=== PATIENT | female | born 1940 | race Caucasian/White ===

== ENCOUNTER → 2016-11-12 | Outpatient (CLI) | payer BC ==
[~2016-11-12] MED LIST: ACET-1311 PO; ASPI81TA28 PO; ATOR-54 PO; CHOL1000 PO; EZET10TA38 PO; GABA-113 PO; LISI-725 PO; MELO15TA4 PO; MULT-506 PO; OMEG10007 PO; POLY335025 PO; RXC5 PO
--- NOTE | 2016-11-12 16:29 | MAMMOGRAPHY REPORT ---
BILATERAL DIGITAL SCREENING MAMMOGRAM WITH CAD: 11/12/2016 TECHNIQUE: Current study was also evaluated with a Computer Aided Detection (CAD) system. Bilatera l CC and MLO views were obtained. COMPARISON: Comparison is made to exams dated: 09/16/2015 mammogram, 03/01/2014 mammogram, 12/03/2011 mammogram, 11/19/2010 mammogram, 02/27/2013 mammogram, and 10/20/2009 mammogram - [facility] enter. BREAST COMPOSITION: There are scattered areas of fibroglandular density in both breasts. FINDINGS: No suspicious masses, calcifications, or areas of architectural distortion are noted in e ither breast. There has been no significant interval change compared to prior exams. Bilateral mason gn-appearing calcifications are not significantly changed. IMPRESSION: ACR BI-RADS CATEGORY 2: BENIGN There is no mammographic evidence of malignancy. A 1 year screening mammogram is recommended. The p atient will receive written notification of the results. Approximately 10% of breast cancers are not detected with mammography. A negative mammographic repor t should not delay biopsy if a clinically suggestive mass is present. Ginger Monique M.D. ah/:11/12/2016 14:59:57 Escrow Representative: Miranda SMITH(Jacques)(Curt), [facility] letter sent: Normal 1/2 BI-RADS Code: ACR BI-RADS Category 2: Benign
== END | disposition home or self-care (01) ==
LOC: C.MAMM 13:57
PROVIDERS: ATTEND Family Medicine
DX: Z12.31 Encounter for screening mammogram for malignant neoplasm of breast (principal)

== ENCOUNTER → 2017-02-10 | Day surgery (SDC) | payer BC ==
[2017-02-09 09:21] VITALS: Ht 177.8 cm; Wt 102.3 kg
[~2017-02-10] VITALS: Ht 177.8 cm; Wt 102.3 kg
[~2017-02-10] MED LIST changes: +DEXAMETHASONE SOD INJ 4 MG/ML VIAL ONE; -EZET10TA38 PO; +LIDOCAINE HCL 1% MPF 5 ML VIAL ONE; -RXC5 PO; +SODIUM CHLORIDE 0.9% 1000ML 1,000 ML IV SCH
--- NOTE | 2017-02-10 09:33 | History & Physical Bridge - [place] ---
H&P Re-Evaluation Bridge Note: I have examined the patient, reviewed the History & Physical and in the interval since the performance of the History & Physical I have noted the following changes of clinical significance: No changes noted
[2017-02-10 09:52] VITALS: TEMP 36.8
--- NOTE | 2017-02-10 09:54 | Discharge Instructions-SurgCtr ---
Discharge Instructions Date of Service Feb 10, 2017. Visit Reason for Visit: Spinal Stenosis Discharge Discharge Diagnosis / Problem: stenosis Discharge Goals Goal(s): Improve function Activity Recommendations Activity Limitations: resume your previous activity Exercise/Sports Limitations: none Anesthesia . Post Anesthesia Instructions: If you have had General Anesthesia or IV Sedation: * Do not drive today. * Resume driving when surgeon permits. * Do not make important decisions or sign legal documents today. * Call surgeon for: 1. Temperature elevations greater than 101 degrees F. 2. Uncontrollable pain. 3. Excessive bleeding. 4. Persistent nausea and vomiting. 5. Medication intolerance (nausea, vomiting or rash). * For nausea and vomiting use only clear liquids such as: tea, soda, bouillon until nausea subsides, then gradually increase diet as tolerated. * If you have any concerns or questions, call your surgeon's office. If physician is unavailable and it is an emergency, call 911 or go to the nearest emergency room. . Diet Recommendations Home Diet: no limitations Procedures Procedures Performed: L4-5, L5-S1 FACET INJECTIONS, Performed : ortega l4-5, L5-s1 Pending Studies Studies pending at discharge: no Medical Emergencies . Who to Call and When: Medical Emergencies: If at any time you feel your situation is an emergency, please call 911 immediately. . Non-Emergent Contact Non-Emergency issues call your: Primary Care Provider . . "Provider Documentation" section prepared by Adam Francisco. .
--- NOTE | 2017-02-10 09:55 | [facility] Post Operative Brief Note ---
Immediate Operative Summary Operative Date Feb 10, 2017. Pre-Operative Diagnosis SPINAL STENOSIS Post-Operative Diagnosis SAME Procedure(s) Performed L4-5, L5-S1 FACET INJECTIONS, Performed : ortega l4-5, L5-s1 Surgeon DR. Sunday WHYTE Resource Economist Surgeon(s) 0 Estimated Blood Loss 0 Findings stenosis Specimens 0 Complication(s) None Disposition Recovery Room / PACU
[2017-02-10 10:10] VITALS: BP 136/72; PULSE 47; O2SAT 96
--- NOTE | 2017-02-10 15:43 | OPERATIVE REPORT ---
DATE OF OPERATION: 02/10/2017 PREOPERATIVE DIAGNOSIS: Stenosis of the lumbar spine. POSTOPERATIVE DIAGNOSIS: Same. SURGEON: Dr. Francisco. PROCEDURE: Epidural steroid injection L4-L5 and L5-S1. I made the determination at the time of surgery that it was more a stenosis problem versus facet joint arthrosis and I felt that the epidural steroids were the more prudent procedure. DESCRIPTION OF PROCEDURE: The patient was taken to the minor procedure room and placed prone, prepped and draped sterile. The 22-gauge Tuohy needle advanced to the epidural space at L4-L5 and L5-S1, 1 mL of dexamethasone injected at each level. The patient tolerated well. Returned to PACU stable. No complications. No blood loss. I attest to the content of the Intraoperative Record and any orders documented therein. Any exception s are noted below.
== END | disposition home or self-care (01) ==
LOC: X.SURG 07:58
PROVIDERS: ATTEND Orthopaedic Surgery Orthopaedic Surgery of the Spine
DX: M48.06 Spinal stenosis, lumbar region (principal)

== ENCOUNTER → 2017-03-25 | Outpatient (CLI) | payer BC ==
[~2017-03-25] MED LIST changes: -DEXAMETHASONE SOD INJ 4 MG/ML VIAL ONE; -LIDOCAINE HCL 1% MPF 5 ML VIAL ONE; -SODIUM CHLORIDE 0.9% 1000ML 1,000 ML IV SCH
== END | disposition home or self-care (01) ==
LOC: C.LABPVFM 12:56
PROVIDERS: ATTEND Family Medicine
DX: R35.0 Frequency of micturition (principal)

== ENCOUNTER → 2017-03-28 | Outpatient (CLI) | payer BC | END | disposition home or self-care (01) | LOC: C.PATHSPEC 13:02 | PROVIDERS: ATTEND Obstetrics & Gynecology | DX: N95.0 Postmenopausal bleeding (principal) ==

== ENCOUNTER → 2017-05-16 | Outpatient (CLI) | payer BC ==
[2017-05-16 13:01] LABS: ESTIMATED AVERAGE GLUCOSE 123 mg/dl; HA1C FLAG Normal (Normal)
[2017-05-16 13:17] LABS: BLOOD UREA NITROGEN 18 mg/dl (7-18); CALCIUM 10.4 mg/dl (8.5-10.1); CARBON DIOXIDE 21 mmol/L (21-32); CHLORIDE 106 mmol/L (98-107); CHOLESTEROL 150 mg/dl (0-200); CREATININE 0.76 mg/dl (0.60-1.20); GLUCOSE 113 mg/dl (70-99); POTASSIUM 4.1 mmol/L (3.5-5.1); SODIUM 138 mmol/L (136-145); TRIGLYCERIDES 105 mg/dl (0-150); VERY LOW DENSITY LIPOPROT CALC 21 mg/dl
[2017-05-16 13:18] LABS: CHOLESTEROL/HDL RATIO 2.7; HDL CHOLESTEROL 55 mg/dl; LDL CHOLESTEROL CALCULATED 74 mg/dl
== END | disposition home or self-care (01) ==
LOC: C.LABPVFM 07:48
PROVIDERS: ATTEND Family Medicine
DX: Z00.00 Encounter for general adult medical examination without abnormal findings (principal); E78.2 Mixed hyperlipidemia; I10 Essential (primary) hypertension; R73.09 Other abnormal glucose

== ENCOUNTER → 2017-05-23 | Day surgery (SDC) | payer BC ==
[2017-04-22 08:48] VITALS: Ht 177.8 cm; Wt 102.3 kg
[2017-04-27 14:07] LABS: HEMATOCRIT 45.4 % (37-47); MEAN CELL VOLUME 90.8 fL (80-100); MEAN CORPUSCULAR HGB CONC 35.2 g/dl (32-36); MEAN PLATELET VOLUME 12.4 fL (7.4-10.4); PLATELET COUNT 159 K/uL (130-400); WHITE BLOOD COUNT 6.46 K/uL (4.8-10.8)
[2017-04-27 14:11] LABS: BASO % 0.5 %; BASO ABS # 0.03 K/uL (0-0.2); COMPLETE YES; EOS % 3.1 %; HYPERSEGMENTED POLYS 1+; IG% 0.3 %; LYMPH % 28.9 %; LYMPH ABS # 1.87 K/uL (1.2-3.4); MONO % 10.8 %; NEUT % 56.4 %
[~2017-05-23] VITALS: Ht 177.8 cm; Wt 102.3 kg
[~2017-05-23] MED LIST changes: +ATROPINE SULFATE 0.1 MG/ML 5ML SYR IV PRN; +DEXAMETHASONE SOD INJ 4 MG/ML VIAL ONE; +EpHEDrine SULFATE INJ 50 MG/ML AMP IV PRN; +FENTANYL CITRATE INJ 50 MCG/1 ML 2 ML VIAL IV PRN; +FENTANYL CITRATE INJ 50 MCG/1 ML 2 ML VIAL ONE; +HYDROmorphone INJ 1 MG/ML SYR IV PRN; +LACTATED RINGER'S 1000ML 1,000 ML IV SCH; +LIDOCAINE HCL 2% 2 ML VIAL (20MG/ML) ONE; +ONDANSETRON INJ 2 MG/ML 2 ML VIAL IV PRN; +ONDANSETRON INJ 2 MG/ML 2 ML VIAL ONE; +OXYCODONE/ACETAMINOPHEN 5-325 TAB PO PRN; +PROMETHAZINE HCL INJ 25 MG in SODIUM CHLORIDE 0.9% 50ML 50 ML IV PRN; +PROPOFOL IV EMULSION 10 MG/ML 20 ML VIAL IV ONE; +SODIUM CHLORIDE 0.9% 1000ML 1,000 ML IV SCH
--- NOTE | 2017-05-23 10:22 | [facility] Post Operative Brief Note ---
Immediate Operative Summary Operative Date May 23, 2017. Pre-Operative Diagnosis Post Menopausal Bleeding Post-Operative Diagnosis same Procedure(s) Performed Dilatation And Curettage, Hysteroscopy, Polypectomy, hysteroscopic myomectomy with Myosure device Surgeon Dr. Chuy Benitez Senior Medical Writer Surgeon(s) 0 Estimated Blood Loss 5cc Findings Large endometrial polyp, small submucosal fibroid. Specimens A. Endometrial Curettings, Endometrial Polyps, Endometrial Fibroids Drains bladder drained prior to procedure Anesthesia general Complication(s) None Disposition Recovery Room / PACU
--- NOTE | 2017-05-23 10:25 | Discharge Instructions-SurgCtr ---
Discharge Instructions Date of Service May 23, 2017. Visit Reason for Visit: Post Menopausal Bleeding Discharge Discharge Diagnosis / Problem: endometrial polyp, submucosal fibroid Discharge Goals Goal(s): Diagnostic testing, Therapeutic intervention Medications Stopped Medications Name(s): Aspirin stopped for one week Activity Recommendations Activity Limitations: per Instructions/Follow-up section Anesthesia . Post Anesthesia Instructions: If you have had General Anesthesia or IV Sedation: * Do not drive today. * Resume driving when surgeon permits. * Do not make important decisions or sign legal documents today. * Call surgeon for: 1. Temperature elevations greater than 101 degrees F. 2. Uncontrollable pain. 3. Excessive bleeding. 4. Persistent nausea and vomiting. 5. Medication intolerance (nausea, vomiting or rash). * For nausea and vomiting use only clear liquids such as: tea, soda, bouillon until nausea subsides, then gradually increase diet as tolerated. * If you have any concerns or questions, call your surgeon's office. If physician is unavailable and it is an emergency, call 911 or go to the nearest emergency room. . Instructions / Follow-Up Instructions / Follow-Up ACTIVITY RECOMMENDATIONS: * Avoid tampons, douching, hot tubs, pools, and intercourse until bleeding has stopped. * May shower as usual. * No strenuous activity for 24-48 hours. After 24-48 hours, you may do anything you feel like doing (driving and sports are okay). SPECIAL CARE INSTRUCTIONS: Special Diet: * Mild nausea may occur in the immediate post-operative period. * Take clear liquids such as tea, cola or bouillon until all nausea has subsided; you may then resume your normal diet. Special Care: * Light bleeding and vaginal spotting can last from a few days to 3-4 weeks. Call your doctor if bleeding becomes heavier than the heaviest part of your period. * Check your temperature twice a day for one week. If it goes above 100.4 degrees Fahrenheit (38.0 Celsius), notify your doctor. * Call your doctor's office for an appointment for 6 weeks after your surgery. FOLLOW-UP VISIT: Call your doctor's office for an appointment for 6 weeks after your surgery. Diet Recommendations Home Diet: resume previous diet Procedures Procedures Performed: Dilatation And Curettage, Hysteroscopy, Polypectomy, hysteroscopic myomectomy with Myosure device Pending Studies Studies pending at discharge: yes List of pending studies: endometrial curettings/endo polyp/submucosal fibroid Medical Emergencies . Who to Call and When: Medical Emergencies: If at any time you feel your situation is an emergency, please call 911 immediately. . Non-Emergent Contact Non-Emergency issues call your: Primary Care Provider, Wiring Mechanic . . "Provider Documentation" section prepared by Albina Benitez. .
[2017-05-23 10:57] VITALS: TEMP 36.5
[2017-05-23 11:18] VITALS: BP 158/78; PULSE 50; O2SAT 97
--- NOTE | 2017-05-23 11:21 | Anesthesia Progress Nt - [facility] ---
Anesthesia Post Op Note Date & Time May 23, 2017 at 11:20 Vital Signs Pain Intensity: 0 Vital Signs Past 12 Hours Date Time Temp Pulse Resp B/P (MAP) Pulse Ox O2 Delivery O2 Flow Rate FiO2 05/23/17 10:57 36.5 60 16 152/84 (106) 94 Room Air 05/23/17 10:53 57 10 05/23/17 10:53 56 10 93 05/23/17 10:50 148/82 05/23/17 10:48 70 15 94 05/23/17 10:48 69 15 05/23/17 10:47 64 9 05/23/17 10:47 63 9 93 05/23/17 10:46 72 12 144/80 93 05/23/17 10:46 70 12 05/23/17 10:45 36.5 61 12 144/80 93 Room Air 05/23/17 10:41 73 18 118/93 98 05/23/17 10:41 72 18 05/23/17 10:36 62 13 05/23/17 10:36 62 13 98 05/23/17 10:35 140/71 05/23/17 10:31 63 12 98 05/23/17 10:31 63 12 05/23/17 10:30 147/78 05/23/17 10:26 74 163/83 92 05/23/17 10:26 36.4 76 14 163/83 95 Mask 11 05/23/17 10:26 74 05/23/17 07:20 36.8 53 16 156/80 (105) 94 Room Air Notes Mental Status: alert / awake / arousable, participated in evaluation Pt Amnestic to Procedure: Yes Nausea / Vomiting: adequately controlled Pain: adequately controlled Airway Patency, RR, SpO2: stable & adequate BP & HR: stable & adequate Hydration State: stable & adequate Anesthetic Complications: no major complications apparent Doing well. Awake, VSS. Ready for d/c
--- NOTE | 2017-05-23 13:03 | OPERATIVE REPORT ---
DATE OF OPERATION: 05/23/2017 PREOPERATIVE DIAGNOSIS: Postmenopausal bleeding. POSTOPERATIVE DIAGNOSIS: Same plus submucosal fibroid plus endometrial polyp. PROCEDURES PERFORMED: 1. Dilation and curettage. 2. Hysteroscopy. 3. Polypectomy. 4. Hysteroscopic myomectomy with MyoSure device. SURGEON: Albina Benitez. DO MILL CONTROL OPERATOR: None. ESTIMATED BLOOD LOSS: 5 mL. FINDINGS: Large endometrial polyp with small submucosal fibroid. SPECIMENS: Endometrial curettings, endometrial polyps and endometrial fibroid. All within the same specimen container. DRAINS: Bladder drained prior to procedure. ANESTHESIA: General. COMPLICATIONS: None. DISPOSITION: Stable and good to recovery room. INDICATIONS FOR PROCEDURE: The patient is a 77-year-old female who had undergone endometrial biopsy in the office and ultrasound for postmenopausal bleeding. Her ultrasound showed a thickened endometrial lining and biopsy result was benign, but showed an endometrial polyp. Therefore, the patient was taken to the operating room for further evaluation and removal. DESCRIPTION OF PROCEDURE: The patient was seen in the preoperative holding area where risks, benefits, alternatives to surgery were reviewed. She elected to proceed with surgery. Questions were answered. She had previously signed informed consent in the office under no duress. She was taken to the operating room where general anesthesia was administered. A timeout was confirmed. She was prepared and draped in the usual sterile fashion with feet in Yellofin stirrups in the dorsal lithotomy position. Bladder was drained. A weighted speculum was placed in the vagina. Cervix was visualized and the anterior lip was grasped with a single tooth tenaculum. The uterus was sounded and then the cervix was sequentially dilated to admit the MyoSure hysteroscope. The scope was then inserted, the cavity was visualized with the above noted findings. The MyoSure device was used to perform polypectomy as well as the myomectomy of submucosal fibroid. Instruments were then removed from the uterus. Excellent hemostasis was observed. All instruments were removed from the vagina. The patient tolerated the procedure well and went to the recovery room in stable and good condition. All specimens will be sent to pathology for further evaluation. I attest to the content of the Intraoperative Record and any orders documented therein. Any exception s are noted below.
== END | disposition home or self-care (01) ==
LOC: X.SURG 07:08
PROVIDERS: ATTEND Obstetrics & Gynecology
DX: N95.0 Postmenopausal bleeding (principal); N84.0 Polyp of corpus uteri; I10 Essential (primary) hypertension; E78.2 Mixed hyperlipidemia; E66.9 Obesity, unspecified; M19.90 Unspecified osteoarthritis, unspecified site; Z68.32 Body mass index [BMI] 32.0-32.9, adult; Z79.82 Long term (current) use of aspirin; Z98.890 Other specified postprocedural states; Z82.3 Family history of stroke; Z80.9 Family history of malignant neoplasm, unspecified

== ENCOUNTER → 2017-12-14 | Outpatient (CLI) | payer BC ==
[~2017-12-14] MED LIST changes: -ATROPINE SULFATE 0.1 MG/ML 5ML SYR IV PRN; -DEXAMETHASONE SOD INJ 4 MG/ML VIAL ONE; -EpHEDrine SULFATE INJ 50 MG/ML AMP IV PRN; -FENTANYL CITRATE INJ 50 MCG/1 ML 2 ML VIAL IV PRN; -FENTANYL CITRATE INJ 50 MCG/1 ML 2 ML VIAL ONE; -HYDROmorphone INJ 1 MG/ML SYR IV PRN; -LACTATED RINGER'S 1000ML 1,000 ML IV SCH; -LIDOCAINE HCL 2% 2 ML VIAL (20MG/ML) ONE; +MELO-83 PO; -MELO15TA4 PO; -ONDANSETRON INJ 2 MG/ML 2 ML VIAL IV PRN; -ONDANSETRON INJ 2 MG/ML 2 ML VIAL ONE; -OXYCODONE/ACETAMINOPHEN 5-325 TAB PO PRN; -PROMETHAZINE HCL INJ 25 MG in SODIUM CHLORIDE 0.9% 50ML 50 ML IV PRN; -PROPOFOL IV EMULSION 10 MG/ML 20 ML VIAL IV ONE; -SODIUM CHLORIDE 0.9% 1000ML 1,000 ML IV SCH
--- NOTE | 2017-12-14 15:30 | MAMMOGRAPHY REPORT ---
BILATERAL DIGITAL SCREENING MAMMOGRAM TOMOSYNTHESIS WITH CAD: 12/14/2017 CLINICAL HISTORY: Routine screening. Patient has no complaints. TECHNIQUE: Breast tomosynthesis in addition to standard 2D mammography was performed. Current study was also evaluated with a Computer Aided Detection (CAD) system. COMPARISON: Comparison is made to exams dated: 09/16/2015 mammogram, 11/12/2016 mammogram, 03/01/2014 m ammogram, 02/27/2013 mammogram, 12/03/2011 mammogram, and 11/19/2010 mammogram - [facility]. BREAST COMPOSITION: There are scattered areas of fibroglandular density in both breasts. FINDINGS: There are stable scattered round calcifications scattered in both breasts. Stabe punctate microcalficiations in the left lateral breast have been stable dating back to at least 2010, therefor e likely benign. No new suspicious mass, architectural distortion or cluster of microcalcifications i s seen. IMPRESSION: ACR BI-RADS CATEGORY 1: NEGATIVE There is no mammographic evidence of malignancy. A 1 year screening mammogram is recommended. The pa tient will receive written notification of the results. Approximately 10% of breast cancers are not detected with mammography. A negative mammographic report should not delay biopsy if a clinically suggestive mass is present. Priyanka Galan M.D. ay/:12/14/2017 14:26:25 Slubber Tender: Heidi SMITH(R)(M), [facility] letter sent: Normal 1/2 BI-RADS Code: ACR BI-RADS Category 1: Negative
== END | disposition home or self-care (01) ==
LOC: C.MAMM 13:18
PROVIDERS: ATTEND Family Medicine
DX: Z12.31 Encounter for screening mammogram for malignant neoplasm of breast (principal)

== ENCOUNTER 2020-02-29 09:54 | Observation (INO) ==
--- NOTE | 2020-02-08 15:01 | PAT Medication Instructions ---
Medication Instructions Date of Service February 08, 2020 Home Medications Medication Instructions Recorded atorvastatin 20 mg tablet 20 mg PO QPM #90 tab 11/26/19 celecoxib 100 mg capsule 100 mg PO BID #60 cap 01/07/20 triamcinolone acetonide 0.1 % 1 applic TOP BID PRN #15 gm 01/21/20 topical cream gabapentin 400 mg capsule 400 mg PO TID #90 cap 01/31/20 tramadol 50 mg tablet 50 - 100 mg PO TID PRN #270 tab 01/31/20 aspirin [Aspir-81] 81 mg PO Q2D cholecalciferol (vitamin D3) [Vitamin D3] 1,000 unit PO QAM multivitamin 1 tab PO QAM omega 6-jpd-kme-fish oil [Fish Oil] 1 cap PO QAM atorvastatin 20 mg tablet 20 mg PO QPM celecoxib 100 mg capsule 100 mg PO BID polyethylene glycol 3350 17 gram oral powder packet 8.5 g PO QPM triamcinolone acetonide 0.1 % topical cream 1 applic TOP BID PRN gabapentin 400 mg capsule 400 mg PO TID tramadol 50 mg tablet 50 - 100 mg PO TID PRN lisinopril 40 mg PO QAM ASK your surgeon for instructions celecoxib 100 mg capsule 100 mg PO BID STOP taking 2 weeks before surgery omega 8-asu-bva-fish oil [Fish Oil] 1 cap PO QAM STOP taking 24 hours before surgery triamcinolone acetonide 0.1 % topical cream 1 applic TOP BID PRN DO NOT take the morning of surgery cholecalciferol (vitamin D3) [Vitamin D3] 1,000 unit PO QAM multivitamin 1 tab PO QAM lisinopril 40 mg PO QAM Take morning of surgery With a small sip of water, OTHERWISE NOTHING TO EAT OR DRINK AFTER MIDNIGHT: aspirin [Aspir-81] 81 mg PO Q2D (if scheduled to take) gabapentin 400 mg capsule 400 mg PO TID tramadol 50 mg tablet 50 - 100 mg PO TID PRN (okay to take up to 4 hours prior to surgery if needed) Take evening before surgery atorvastatin 20 mg tablet 20 mg PO QPM polyethylene glycol 3350 17 gram oral powder packet 8.5 g PO QPM gabapentin 400 mg capsule 400 mg PO TID tramadol 50 mg tablet 50 - 100 mg PO TID PRN (if needed) Other Notes If you have any questions please call us at [phone] or [phone] or [phone] or [phone]
--- NOTE | 2020-02-13 14:27 | Anesthesiology Consultation ---
Date of Service February 13, 2020 Assessment & Plan (1) Encounter for pre-operative examination: Chart Review Chart Review: Acceptable Risk for Surgery (pending Covid testing) and Patient seen in Pre Admission Testing Per PAT appt 02/13/20, pt denies recent travel. Educated patient to follow up with surgeon's office regarding Covid testing. Educated on importance of self quarantining, social distancing and wearing mask in public both for herself and household contacts. Teaching & Discussion Pre-Anesthesia Teaching/Discussion Notes: Instructed NPO after midnight before surgery,except medications with 15 cc of water. Medication instructions provided according to the PAT guidelines. History Surgery Operation Date: 02/29/20 12:30 Proposed Procedures p Left Total Hip Arthroplasty Uncemt Chasidy - Won Wallace DO Height/Weight Height: 5 ft 10 in Weight: 98.5 kg Allergies Allergy/AdvReac Type Severity Reaction Status Date / Time cyclobenzaprine AdvReac Mild does not Verified 02/06/20 10:15 feel good when taking Medications Home Medications Medication Instructions Recorded Confirmed Last Taken aspirin [Aspir-81] 81 mg PO Q2D 05/31/18 02/13/20 12/13/18 cholecalciferol (vitamin D3) 1,000 unit PO QAM 05/31/18 02/13/20 12/14/18 06:45 [Vitamin D3] multivitamin 1 tab PO QAM 05/31/18 02/13/20 12/14/18 06:45 omega 1-ksv-zms-fish oil [Fish Oil] 1 cap PO QAM 05/31/18 02/13/20 12/14/18 06:45 atorvastatin 20 mg tablet 20 mg PO QPM #90 tab 11/26/19 02/13/20 Unknown celecoxib 100 mg capsule 100 mg PO BID #60 cap 01/07/20 02/13/20 Unknown polyethylene glycol 3350 17 gram 8.5 g PO QPM ea 01/21/20 02/13/20 Unknown oral powder packet triamcinolone acetonide 0.1 % 1 applic TOP BID PRN #15 gm 01/21/20 02/13/20 Unknown topical cream gabapentin 400 mg capsule 400 mg PO TID #90 cap 01/31/20 02/13/20 Unknown tramadol 50 mg tablet 50 - 100 mg PO TID PRN #270 tab 01/31/20 02/13/20 Unknown lisinopril 40 mg PO QAM 02/06/20 02/13/20 Unknown Past Medical History Medical History (Updated 02/13/20 @ 15:12 by Symone Meyers PA-C) Chronic back pain Hyperglycemia Mild and stable Hyperlipidemia Hypertension Osteoarthritis Spinal stenosis Trochanteric bursitis Exercise / Class Metabolic Activity II 4-5 Yardwork/Stairs/Walk up hill (one flight of stairs - no chest pain or SOB ) Past Family History Family History Mother Stroke Father Cancer Denies family history of Ovarian cancer Prostate cancer Myocardial infarction Breast cancer Colorectal cancer Past Surgical History Surgical History (Updated 02/14/20 @ 10:02 by Symone Meyers PA-C) History of colonoscopy History of dilatation and curettage Removed uterine polyp History of tooth extraction History of total shoulder replacement LEFT Past Anesthesia History No Hx of Anesthesia Complications and No Family Hx of Anesthesia Complications History of PONV No Hx of PONV and No Hx of Motion Sickness Social History Smoking Status: Never smoker Smoking cigarettes per day: 0 Do You Dip or Chew Tobacco: No Hx Alcohol Use: No Hx Substance Use: No substance use type: does not use Review of Systems Chronic bradycardia- seen by cardio in the past - only follows PRN. Denies syncope or dizziness Patient denies chest pain, shortness of breath, dyspnea on exertion, reflux, cough, wheezing, palpitations. No hx of seizures, stroke, [place], apnea/snoring. No hx of blood clots or blood transfusions Physical Exam Vital Signs VITALS BP 173/83 P 72 TEMP 98.4 SP02 97% RESP 16 Constitutional no acute distress ENMT Mouth: no TMJ clicking Thyromental Distance: > or= 3.5 Finger Breadths (4.0) Mallampati Class: II Missing molar. Missing cap on bottom right molar. Neck + thick neck and + limited neck extension (mild ) Respiratory normal respiratory effort; no respiratory distress Auscultation: lungs clear to auscultation bilaterally; no wheezes Cardiovascular Rate/Rhythm: regular rate and regular rhythm Heart Sounds: no murmur Vessels: no carotid bruit Musculoskeletal Spine: no pain with cervical ROM Neurologic moves all extremities Psychiatric Orientation: alert Testing Laboratory Results 02/13/20 14:50 02/13/20 14:50 PT 11.0 Seconds (9.0-12.0) 02/13/20 14:50 INR 1.0 (0.9-1.1) 02/13/20 14:50 APTT 27.7 Seconds (21.0-31.0) 02/13/20 14:50 Blood Type A Positive 02/13/20 14:50 Antibody Screen NEGATIVE 02/13/20 14:50 Electrocardiogram Date: 02/13/20 Findings: + NSR @ (66) Chest X-Ray Date: 02/13/20 Findings: + NAD and + cardiomegaly The heart is enlarged noting atherosclerotic calcification of the thoracic aorta. There is left basilar atelectasis.
--- NOTE | 2020-02-13 15:17 | XRay Report ---
TWO VIEW CHEST CLINICAL HISTORY: Preoperative examination. FINDINGS: PA and lateral chest radiographs are compared to study dated 02/05/2015. The heart is enlarg ed noting atherosclerotic calcification of the thoracic aorta. The pulmonary vasculature is nonconges bharathi. There is left basilar atelectasis. The lungs and pleural spaces are otherwise clear. There is n o pneumothorax. The skeletal structures are osteopenic. The bony thorax appears intact. Degenerative change is seen throughout the thoracic spine. A left shoulder arthroplasty is in place. IMPRESSION: Cardiomegaly with no active disease in the chest. ACT 112: Negative or not required by law. Electronically signed by: Lucius Posey M.D. 02/13/2020 3:16 PM
--- NOTE | 2020-02-13 16:10 | Electrocardiogram Report ---
Test Reason : Blood Pressure : / mmHG Vent. Rate : 066 BPM Atrial Rate : 066 BPM P-R Int : 142 ms QRS Dur : 096 ms QT Int : 360 ms P-R-T Axes : 000 -11 047 degrees QTc Int : 377 ms Normal sinus rhythm Normal ECG No previous ECGs available Confirmed by Gage Brown ([id number]) on 02/13/2020 4:10:17 PM Referred By: Won Wallace Confirmed By:Gage Brown
[2020-02-13 16:38] LABS: Basophils # (auto) 0.02 K/uL (0-0.2); Basophils % (auto) 0.3 %; Eosinophils # (auto) 0.07 K/uL (0-0.5); Eosinophils % (auto) 1.1 %; Hematocrit (blood only) 43.4 % (37-47); Hemoglobin 14.8 g/dL (12.0-16.0); Immature Granulocytes # (auto) 0.01 K/uL (0.00-0.02); Immature Granulocytes % (auto) 0.2 %; Lymphocytes # (auto) 1.72 K/uL (1.2-3.4); Lymphocytes % (auto) 27.8 %; Mean Corpuscular Hemoglobin 31.3 pg (25-34); Mean Corpuscular Hgb Conc 34.1 g/dL (32-36); Mean Corpuscular Volume 91.8 fL (80-100); Mean Platelet Volume 11.9 fL (7.4-10.4); Monocytes # (auto) 0.49 K/uL (0.11-0.59); Monocytes % (auto) 7.9 %; Neutrophils # (auto) 3.87 K/uL (1.4-6.5); Neutrophils % (auto) 62.7 %; Platelet Count 168 K/uL (130-400); RDW Coefficient of Variation 13.3 % (11.5-14.5); RDW Standard Deviation 44.5 fL (36.4-46.3); Red Blood Count 4.73 M/uL (4.2-5.4); White Blood Count 6.18 K/uL (4.8-10.8)
[2020-02-13 16:47] LABS: BUN Creatinine Ratio 18.1 (10-20); Creatinine Clr Calc Pharmacy 100.1 ml/min; Est GFR (African American) 101.3; Est GFR (Non-African American) 87.4; Potassium 3.8 mmol/L (3.5-5.1)
[2020-02-13 16:51] LABS: Partial Thromboplastin Time 27.7 Seconds (21.0-31.0)
--- NOTE | 2020-02-28 06:21 | History & Physical Report ---
Date of Service February 28, 2020 Assessment & Plan (1) Osteoarthritis of left hip: We will proceed with a left anterior total hip arthroplasty. Postoperatively she will be placed on aspirin and kept overnight for postoperative medical management. Shreya is a low risk for joint replacement surgery without any major comorbidities. Present on Admission?: Yes History of Present Illness Chief Complaint: Primary osteoarthritis of the left hip Primary Care Provider: Alyson Kingsley MD Shreya is a pleasant 80-year-old female who is been dealing with chronic increasing left hip and groin pain. X-rays and MRI have been diagnostic for advanced osteoarthritis of the left hip. After failing conservative treatment, she has elected to proceed with a left anterior total hip arthroplasty. Allergies Allergy/AdvReac Type Severity Reaction Status Date / Time cyclobenzaprine AdvReac Mild does not Verified 02/06/20 10:15 feel good when taking Home Medications Home Medications Medication Instructions Recorded Confirmed Type aspirin [Aspir-81] 81 mg PO Q2D 05/31/18 02/13/20 History cholecalciferol (vitamin D3) 1,000 unit PO QAM 05/31/18 02/13/20 History [Vitamin D3] multivitamin 1 tab PO QAM 05/31/18 02/13/20 History omega 7-ttn-ujg-fish oil [Fish Oil] 1 cap PO QAM 05/31/18 02/13/20 History atorvastatin 20 mg tablet 20 mg PO QPM #90 tab 11/26/19 02/13/20 Rx celecoxib 100 mg capsule 100 mg PO BID #60 cap 01/07/20 02/13/20 Rx polyethylene glycol 3350 17 gram 8.5 g PO QPM ea 01/21/20 02/13/20 History oral powder packet gabapentin 400 mg capsule 400 mg PO TID #90 cap 01/31/20 02/13/20 Rx tramadol 50 mg tablet 50 - 100 mg PO TID PRN #270 tab 01/31/20 02/13/20 Rx lisinopril 40 mg PO QAM 02/06/20 02/13/20 History triamcinolone acetonide 0.1 % 1 applic TOP BID PRN #15 gm 02/22/20 Rx topical cream Past Med/Surg History Medical History Chronic back pain Hyperglycemia Mild and stable Hyperlipidemia Hypertension Osteoarthritis Spinal stenosis Trochanteric bursitis Surgical History History of colonoscopy History of dilatation and curettage Removed uterine polyp History of tooth extraction History of total shoulder replacement LEFT Family History Mother Stroke Father Cancer Denies family history of Ovarian cancer Prostate cancer Myocardial infarction Breast cancer Colorectal cancer Social History Preferred Language: Bur[place]ian Communication Ability: Effective Visual Impairment: No Limitations Hearing Ability: Normal Logging Superintendent Required: No Beliefs That Will Affect Care: None marital status: Current Living Situation: Spouse current occupational status: employed and retired Other Information That Helps Us Care for You: No Feels Safe at Home: Yes Safety Concerns: Feels Safe At This Time Smoking Status: Never smoker Cigarettes Per Day: 0 ; Do You Dip or Chew Tobacco: No ; Second Hand Exposure: Yes (FATHER SMOKED PIPE) ; Hx Alcohol Use: No Hx Substance Use: No Review of Systems Review of Systems: All systems reviewed & are unremarkable except as noted in HPI & below Physical Exam Constitutional: WD/WN, vitals as above Eyes: PERRL, conjunctivae normal, anicteric sclerae ENMT: external ear and nose normal, oropharynx normal Neck: trachea midline, no thyromegaly Respiratory: normal respiratory effort Cardiovascular: RRR, no murmur, no edema Gastrointestinal (Abdomen): normal bowel sounds, soft, nontender, no hepatosplenomegaly Musculoskeletal: Physical examination of the left hip reveals decreased range of motion with flexion, internal and external rotation. There is significant groin pain with forced internal rotation of the hip his leg lengths are essentially equal. Psychiatric: A+Ox3, euthymic affect Results & Data Results & Data ([facility]) Diagnostic Findings Radiographs of the left hip and pelvis demonstrate advanced osteoarthritis with joint space narrowing osteophyte formation and ghlx-gr-hzzf articulation. PG Care Time/CCT Total # of Minutes Spent Total Time Spent with Patient: Total time spent is greater than 50% in coordination of care (as documented) at patient's floor/unit and/or counseling patient: Coding Level of Care Code 95034 Initial Inpt Care Lvl 3 Diagnoses Osteoarthritis of left hip M16.12
[~2020-02-29 09:54] MED LIST changes: -ACET-1311 PO; +ACETAMINOPHEN 500 MG TAB PO SCH; -ASPI81TA28 PO; -ATOR-54 PO; +BUPIVACAINE 0.5 % 5 MG/1 ML PF 10ML VIAL ONE; +CEFAZOLIN 2000MG 2,000 MG/15 ML SYR IV SCH; -CHOL1000 PO; +FAMOTIDINE 20 MG TAB PO SCH; -GABA-113 PO; -LISI-725 PO; +LR 500ML BOLUS, THEN 15ML/HR IV SCH; +LR 60ML/HR IV SCH; -MELO-83 PO; -MULT-506 PO; -OMEG10007 PO; -POLY335025 PO; +ROPIVACAINE 0.5% HCL/PF 150 MG, BUPIVACAINE 0.5% MPF 30 ML, EPINEPHrine 30MG/30ML (OR U... INSTIL SCH; +TRANEXAMIC ACID 1,000 MG **IV Intra-op IV SCH; +TRANEXAMIC ACID 1,000 MG **IV Pre-op IV SCH; +dexAMETHasone 4 MG TAB PO SCH
[2020-02-29] MEDS ORDERED: PROPOFOL IV EMULSION 10 MG/ML 20 ML VIAL IV ONE (09:58)
[2020-02-29] MEDS ORDERED: fentaNYL citrate 100 MCG/2 ML VIAL ONE (09:58)
[2020-02-29] MEDS ORDERED: MIDAZOLAM HCL 1 MG/ML 2ML VIAL ONE (09:58)
[2020-02-29] MEDS ORDERED: LIDOCAINE HCL 2% 2 ML VIAL/AMP(20MG/ML) INFIL ONE (09:58)
--- NOTE | 2020-02-29 10:20 | History & Physical Bridge Note ---
Date of Service February 29, 2020 History & Physical Bridge Note I have examined the patient, reviewed the History & Physical and in the interval since the performance of the History & Physical I have noted the following changes of clinical significance: no changes noted
[2020-02-29] MEDS ORDERED: ONDANSETRON INJ 2 MG/ML 2 ML VIAL IV PRN ×2 (10:50→14:43)
[2020-02-29] MEDS ORDERED: ATROPINE SULFATE 0.1 MG/ML 10ML SYR IV PRN (10:50)
[2020-02-29] MEDS ORDERED: ePHEDrine sulfate 50 MG/ML AMP IV PRN (10:50)
[2020-02-29] MEDS ORDERED: fentaNYL citrate 100 MCG/2 ML VIAL IV PRN (10:50)
[2020-02-29] MEDS ORDERED: ORTHO JOINT ANESTHETIC ONE (11:14)
--- NOTE | 2020-02-29 13:26 | Operative Report ---
PG Post Operative Report Pre & Post Diagnosis Operation Date: 02/29/20 12:00 Pre-Op Diagnosis: Degenerative Joint Disease Left Hip Post-Op Diagnosis: Degenerative Joint Disease Left Hip I identified the patient and participated in the time-out.: Yes Procedure Operation Date: 02/29/20 12:00 Actual Procedures p Left Anterior Total Hip Arthroplasty(Left) - Won Wallace DO Surgeon Won Wallace DO Rewind Operator Won Fitzgerald PAC Estimated Blood Loss 250 Findings Consistent with Post-Op Diagnosis Specimens Left femoral head Complications none Disposition Disposition: Recovery Room Indications Shreya is a pleasant 80-year-old female who presented my office with chronic increasing left hip and groin pain. X-rays, MRI, and clinical examination were diagnostic for advanced osteoarthritis of the left hip. After failing conservative treatment, she elected proceed with a left anterior total hip arthroplasty. Description of Procedure Implants used I used a Biomet Taperloc total hip arthroplasty system with a size 14 high offset micro Taperloc stem, a 52 mm G7 cup with a 25mm screw, an E1 polyethylene liner, a 36 mm ceramic head with a 0 neck. Shreya arrived at the hospital for the above procedure. She was seen in the preoperative holding area and the operative extremity was identified and signed. She was given a spinal anesthetic, a preoperative antibiotic, and TXA. She was then taken back to the operating room and laid on the table in the supine position. She was given basic sedation. The operative leg was secured to a Puristst leg positioner. The hip was then prepped and draped in sterile fashion. A timeout was done and the patient and the operative extremity was properly identified. An anterior approach was used. Dissection was taken down through the fascia and the tensor muscle belly was retracted laterally and the rectus was retracted medially. The circumflex vessels were identified and ligated. The capsule was then incised and tagged for later repair. The femoral neck was then cut and the femoral head was removed. The acetabulum was exposed. Time was spent doing a complete circumferential labral release. Sequential reaming of the acetabulum up to a size 51 reamer was done. Final reamings were done under fluoroscopy to ensure appropriate version. A Biomet 52 mm G7 cup was then impacted into place. A single 25 mm screw was placed. The E1 polyethylene liner was then snapped into place. Surrounding soft tissues were then injected with 100 cc of an orthopedic pain control cocktail. The proximal femur was then exposed. Sequential broaching up to a size 14 broach was done. Off that broach a size 36 head with a 0 neck was trialed. The hip was reduced and fluoroscopic images showed anatomic alignment of the implants in acceptable length. The broach was removed. The final size 14 high offset micro Taperloc stem was then impacted into place. A ceramic 36 mm head with a 0 neck was then impacted onto the stem and the hip was reduced. Final fluoroscopic images showed anatomic alignment of the hip. The capsule was then closed with #1 Vicryl suture. A dilute betadyne lavage was then done for 3 minutes. The joint was then irrigated with normal saline solution. The fascia was closed with #1 PDS suture. Skin was closed with 2-0 Vicryl, dustin, and a Silverlon dressing. She was then transferred to a hospital bed and taken to the post anesthesia care unit in stable condition. She tolerated the procedure well. Won Fitzgerald PA-C, was present for the entire procedure. He was critical for patient positioning, prepping, draping, retraction exposure, wound closure and application of sterile dressing. I attest to the content of the Intraoperative Record and any orders documented therein. Any exceptions are noted below.
--- NOTE | 2020-02-29 13:47 | Fluoroscopy Report ---
FL hip LT 1V HISTORY: 80 years-old Female LT ANTERIOR left hip total joint arthroplasty COMPARISON: Radiographs of the left hip 10/22/2019 TECHNIQUE: 2 spot fluoroscopic images of the left hip were obtained utilizing 34 seconds fluoroscopy time FINDINGS: Left hip total joint arthroplasty demonstrates satisfactory alignment. No acute fracture. Expected po stoperative soft tissue swelling and deep tissue air. IMPRESSION: Satisfactory alignment of the left hip total joint arthroplasty. ACT 112: Negative or not required by law. The above report was generated using voice recognition software. It may contain grammatical, syntax o r spelling errors. Electronically signed by: Rafael Cueva M.D. 02/29/2020 1:46 PM
--- NOTE | 2020-02-29 14:16 | XRay Report ---
XR hip 1V LT w pelvis CLINICAL HISTORY: Postop hip arthroplasty COMPARISON: 10/22/2019 DISCUSSION: There are postsurgical changes of a total left hip arthroplasty. The acetabular and femor al components appear well seated. There are overlying skin dustin. There is gas in the soft tissues consistent with recent surgery. There is a sclerotic density within the left inferior pubic ramus lik jessica representing a bone island. IMPRESSION: Postsurgical changes of a total left hip arthroplasty. ACT 112: Negative or not required by law. Electronically signed by: Al Greer M.D. 02/29/2020 2:14 PM
[2020-02-29] MEDS ORDERED: NALOXONE HCL 0.4 MG/1 ML VIAL/CARP IV PRN (14:43)
[2020-02-29] MEDS ORDERED: MAGNESIUM HYDROXIDE SUSP 30 ML UDC PO PRN (14:43)
[2020-02-29] MEDS ORDERED: HYDROmorphone INJ 0.5 MG/0.5 ML SYR IV PRN (14:43)
[2020-02-29] MEDS ORDERED: OXYCODONE HCL IR 5 MG TAB (IMMEDIATE RELEASE) PO PRN (14:43)
[2020-02-29] MEDS ORDERED: TRIAMCINOLONE ACET 0.1% CR 15 GM TUBE TOP PRN (14:43)
[2020-02-29] MEDS ORDERED: METOCLOPRAMIDE HCL INJ 5 MG/ML 2 ML VIAL IV PRN (14:43)
[2020-02-29] MEDS ORDERED: bisacodyL 10 MG SUPP PR PRN (14:43)
--- NOTE | 2020-02-29 14:47 | Anesthesiology Progress Note ---
Date of Service February 29, 2020 Anesthesia Post Procedure Vital Signs Vital Signs: Temp Pulse Pulse Resp BP BP Pulse Ox 02/29/20 14:30 70 14 132/63 98 02/29/20 14:20 36.2 C L 65 14 137/60 97 02/29/20 14:10 61 18 121/64 98 02/29/20 14:00 59 L 12 124/62 97 02/29/20 13:50 36.4 C L 65 16 128/61 98 02/29/20 10:40 37 C 68 18 175/88 H 97 Pain Intensity Left Hip: Pain Intensity: 4 Transfer of Care Handoff Completed per policy Notes Mental Status: alert / awake / arousable Patient Amnestic to Procedure: Yes Nausea / Vomiting: adequately controlled Pain: adequately controlled Airway Patency, RR, SpO2: stable & adequate BP & HR: stable & adequate Hydration State: stable & adequate Neuraxial Anesthesia: was administered and sensory block is resolving Anesthetic Complications: no major complications apparent
[2020-02-29] MEDS ORDERED: KETOROLAC 30 MG/ML VIAL IV SCH (16:00)
[2020-02-29] MEDS: GABAPENTIN 400 MG CAP PO SCH ×2 (16:21→20:34)
[2020-02-29] MEDS: ACETAMINOPHEN 500 MG TAB PO SCH ×2 (16:21→22:00)
[2020-02-29] MEDS: SODIUM CHLORIDE 0.9% 1000ML 1,000 ML IV SCH (16:27)
[2020-02-29] MEDS: KETOROLAC TROMETHAMINE 15 MG/ML VIAL IV SCH ×2 (16:31→22:00)
[2020-02-29] MEDS: ASPIRIN 81 MG ECTAB PO SCH (20:34)
[2020-02-29] MEDS: DOCUSATE SODIUM 100 MG CAP PO SCH (20:34)
[2020-02-29] MEDS: CEFAZOLIN 2000MG 2,000 MG/15 ML SYR IV SCH (20:39)
[2020-02-29] MEDS ORDERED: ATORVASTATIN 20 MG TAB PO SCH (21:00)
[2020-02-29] MEDS ORDERED: SENNA 8.6 MG TAB PO SCH (21:00)
[2020-03-01] MEDS: KETOROLAC TROMETHAMINE 15 MG/ML VIAL IV SCH ×2 (03:07→09:41)
[2020-03-01] MEDS: CEFAZOLIN 2000MG 2,000 MG/15 ML SYR IV SCH (03:07)
[2020-03-01] MEDS: SODIUM CHLORIDE 0.9% 1000ML 1,000 ML IV SCH (03:17)
[2020-03-01] MEDS: ACETAMINOPHEN 500 MG TAB PO SCH (05:44)
[2020-03-01 06:23] LABS: Hematocrit (blood only) 38.7 % (37-47); Hemoglobin 12.9 g/dL (12.0-16.0); Immature Granulocytes # (auto) 0.05 K/uL (0.00-0.02); Immature Granulocytes % (auto) 0.4 %; Lymphocytes # (auto) 1.05 K/uL (1.2-3.4); Mean Corpuscular Hgb Conc 33.3 g/dL (32-36); Mean Platelet Volume 11.7 fL (7.4-10.4); Monocytes # (auto) 1.44 K/uL (0.11-0.59); Neutrophils # (auto) 10.55 K/uL (1.4-6.5); Neutrophils % (auto) 80.6 %; Platelet Count 190 K/uL (130-400); RDW Coefficient of Variation 13.3 % (11.5-14.5); RDW Standard Deviation 44.8 fL (36.4-46.3); Red Blood Count 4.16 M/uL (4.2-5.4); White Blood Count 13.09 K/uL (4.8-10.8)
[2020-03-01 06:58] LABS: BUN Creatinine Ratio 11.7 (10-20); Calcium 9.6 mg/dl (8.5-10.1); Creatinine Clr Calc Pharmacy 56.2 ml/min; Est GFR (African American) 62.3; Est GFR (Non-African American) 53.7; Potassium 3.8 mmol/L (3.5-5.1)
--- NOTE | 2020-03-01 07:24 | Orthopedic Progress Note ---
Date of Service March 01, 2020 Assessment & Plan (1) History of left hip replacement: Overall she is doing very well. She is not having much pain in the left hip. She will be seen by physical therapy this morning for ambulation and range of motion exercises. She is on aspirin for DVT prophylaxis. She can be discharged home later today. She will follow-up with orthopedics in 2 weeks. Present on Admission?: Yes Subjective Shreya was seen and examined at bedside this morning. Overall she is doing very well. She is not having much pain in the left hip. She has already been up and ambulating. Her pain is well controlled and she has no complaints. Physical Exam Musculoskeletal: On physical examination of the left hip, the dressing has a little bit of bloody drainage on it but it is well sealed. Her leg lengths are equal. She has active dorsiflexion and plantarflexion of her right ankle. Results & Data ([facility]) Vital Signs (Past 12 Hours) Vital Signs Temp Pulse Resp BP BP Pulse Ox 03/01/20 05:45 36.8 C 58 L 16 172/71 H 95 03/01/20 03:09 37.2 C 57 L 16 111/61 95 02/29/20 23:22 36.8 C 52 L 16 123/65 94 02/29/20 19:26 37.2 C 61 16 122/72 92 Laboratory Results H & H 02/13/20 03/01/20 Range/Units 14:50 05:59 Hgb 14.8 12.9 (12.0-16.0) g/dL Hct 43.4 38.7 (37-47) % Coagulation 02/13/20 Range/Units 14:50 INR 1.0 (0.9-1.1) Diagnostic Findings Postoperative x-rays of the left hip show the prosthesis to be in anatomic alignment without any evidence of fracture, dislocation, or loosening. PG Care Time/CCT Total # of Minutes Spent Total Time Spent with Patient: Total time spent is greater than 50% in coordination of care (as documented) at patient's floor/unit and/or counseling patient: Coding Level of Care Code None Diagnoses History of left hip replacement Z96.642
--- NOTE | 2020-03-01 07:26 | Discharge Summary ---
Date of Service March 01, 2020 Admission HPI Per Admitting Provider Shreya is a pleasant 80-year-old female who is been dealing with chronic increasing left hip and groin pain. X-rays and MRI have been diagnostic for advanced osteoarthritis of the left hip. After failing conservative treatment, she has elected to proceed with a left anterior total hip arthroplasty. Principal Diagnosis Left total hip arthroplasty Discharge Data Allergies Allergy/AdvReac Type Severity Reaction Status Date / Time cyclobenzaprine AdvReac Mild does not Verified 02/29/20 10:17 feel good when taking Consultations 03/01/20 08:00 Consult Case Management - Discharge Planning Routine Procedures Performed Operation Date: 02/29/20 12:00 Actual Procedures p Left Anterior Total Hip Arthroplasty(Left) - Won Wallace DO Ordered Studies 02/29/20 12:00 FL fluoroscopy <1hr Routine FL hip LT 1V Routine Hospital Course (1) History of left hip replacement: On February 29, 2020 Shreya arrived at [facility] and underwent a left anterior total hip arthroplasty without complication. She had a spinal anesthetic. Postoperatively she was started on aspirin for DVT prophylaxis and transferred to the general orthopedic floors. Her hospital course was uneve ntful. On postop day #1 her H&H was stable and her pain was well controlled. She was able to participate well with physical therapy doing ambulation and range of motion exercises. She was then discharged home. She will follow-up with orthopedics in 2 weeks. Total Time Total Time Spent Total Time Spent (In Minutes): 20 Discharge Plan Discharge Items Patient Disposition: Home - Home Health Services Reason For Visit: Degenerative Joint Disease Left Hip Discharge Diagnosis: Left total hip arthroplasty Activity: As commented below Non-emergency contact: Surgeon Call non-emergency contact if: your wound has increased redness and your wound has increased drainage Follow-up/Referrals: Alyson Kingsley MD [Primary Care Provider] - Diet: Regular Addtl Attending Provider Instructions: Activity and Therapy Recommendations: * If you are using [facility] then therapy will be provided at your home until they feel you have accomplished all of your goals. * If you are using [facility] then Physical Therapy will be provided until they feel you are ready to start Outpatient Physical Therapy. * If you are not using home therapy then Outpatient Physical Therapy should start about 3-5 days from your day of surgery. Therapy will last about 6-10 weeks * You were shown a series of exercises in the hospital. Do these exercises three times each day including the exercises you were shown in physical therapy. * Get up and walk several times each day.~ For the first four weeks, try not to stand or walk for more than one hour at a time. If you do stand or walk for more than one hour, you will not hurt anything, but your leg will likely swell.~~ * As you feel comfortable, you may change from the walker or crutches to a cane and~then to independent walking. Medications: * Narcotic You will likely be sent home from the hospital with a prescription for the narcotic pain medication that worked best throughout your stay. * Aspirin Most patients will be required to take Aspirin 81mg twice a day for 6 weeks after surgery. This is obtained [id number] and a prescription is not necessary. * Other medications may be prescribed for specific circumstances. If you have any questions, please call the office at . * Resume previous home medications unless otherwise instructed TEDs/Elastic Stockings: The white elastic stockings help limit swelling and prevent blood clots from for ayah in your legs. The more you wear them, the more they work. Wear them for six weeks. Dressing Care: Leave the Silverlon dressing in place for 7 days. After 7 days you may remove the dressing. Then, you may leave the dustin open to air or cover them with a dry dressing so they do not rub on your pants. The dustin will be removed at your 2 week follow-up appointment. Showering: You may shower immediately with the Silverlon dressing. Let the shower spray hit your opposite side and slowly pat the dressing dry. Do not soak the dressing. After the dressing is removed you may shower normally with the dustin exposed. Let soapy water run over the dustin and pat them dry. Things To Watch For: * Drainage from the incision site that occurs more than one week after your surgery. * Increased redness at the incision site. * Fever above 102 degrees Fahrenheit. * Unusual chest pain or shortness of breath. * Call [facility] at with any of the above problems Follow-Up Visit: Follow-up with Dr. Wallace's PA (Won Fitzgerald) 2-3 weeks after your day of surgery. He will remove your dustin and answer any questions. If you have any additional questions or concerns, Dr Wallace is usually in the office at the same time and will be available An appointment was probably scheduled when you signed-up for surgery in the office. If you have any questions call Office Instructions: More detailed instructions as well as Frequently Asked Questions were provided in a folder by our office when you signed-up for surgery. Please review these instructions when you get home. If you have any further questions or concerns, please feel free to call the office at [phone] Pending Studies at Discharge: No Stand-Alone Forms: My [facility] [employer], Smoking Cessation Medications and DC Order Prescriptions: New oxycodone 5 mg Tablet 5 mg PO Q4H PRN (Reason: pain) Qty: 30 RF: 0 Continued atorvastatin 20 mg tablet 20 mg PO QPM Qty: 90 RF: 1 celecoxib 100 mg capsule 100 mg PO BID Qty: 60 RF: 2 tramadol 50 mg tablet 50 - 100 mg PO TID PRN (Reason: Pain) Qty: 270 RF: 0 gabapentin 400 mg capsule 400 mg PO TID Qty: 90 RF: 2 triamcinolone acetonide 0.1 % cream 1 applic TOP BID PRN (Reason: rash) Qty: 15 RF: 0 lisinopril 40 mg tablet 40 mg PO QAM RF: 0 multivitamin Tablet 1 tab PO QAM RF: 0 cholecalciferol (vitamin D3) [Vitamin D3] 1,000 unit Capsule 1,000 unit PO QAM RF: 0 omega 3-hnb-zfr-fish oil [Fish Oil] 1,000 mg (120 mg-180 mg) Capsule 1 cap PO QAM RF: 0 polyethylene glycol 3350 [Miralax] 17 gram powder in packet 8.5 g PO QPM RF: 0 Changed aspirin [Aspir-81] 81 mg Tablet,Delayed Release (Dr/Ec) 81 mg PO BID 42 Days Qty: 0 RF: 0 Discharge Orders: Discharge Order (Routine); Ordered 03/01/20 Ordered By: Won Wallace Admission Data Admit Date/Time: 02/29/20 14:41 Attending Provider: Won Wallace Admit Provider: Rodrigo,Won A Primary Care Provider: Alyson Kignsley Coding Level of Care Code D/C Day Management <30 mins Diagnoses History of left hip replacement Z96.642
[2020-03-01] MEDS ORDERED: dexAMETHasone 4 MG TAB PO SCH (08:00)
[2020-03-01] MEDS: GABAPENTIN 400 MG CAP PO SCH (08:41)
[2020-03-01] MEDS: DOCUSATE SODIUM 100 MG CAP PO SCH (08:41)
[2020-03-01] MEDS: ASPIRIN 81 MG ECTAB PO SCH (08:41)
[2020-03-01] MEDS ORDERED: lisinopriL 40 MG TAB PO SCH (09:00)
[2020-03-01] MEDS ORDERED: MULTIVITAMIN TAB PO SCH (09:00)
== END 2020-03-01 10:29 | disposition home health service (06) ==
LOC: ASU 09:54 → 3E 09:54

== ENCOUNTER 2021-02-19 08:21 | Observation (INO) ==
[2021-02-19] MEDS ORDERED: SODIUM CHLORIDE 0.9% 1000ML 1,000 ML IV SCH (09:00)
[2021-02-19 09:15] LABS: Appearance Urine Clear (Clear); Bacteria Urine Automated Negative (Negative); Blood Urine 1+ (Negative); Color Urine Dark Yellow; Glucose Urine UA Negative (Negative); Ketones Urine Negative (Negative); Leukocyte Esterase Urine Negative (Negative); Nitrite Urine Negative (Negative); Protein Urine 1+ (Negative); Specific Gravity Urine 1.026 (1.000-1.030); Urobilinogen Urine Negative (Negative); pH Urine 6.5 (4.5-7.5)
[2021-02-19 09:20] LABS: Bilirubin Urine 1+ (Negative)
--- NOTE | 2021-02-19 09:33 | Emergency Department Note ---
History of Present Illness General Chief complaint: Confusion Stated complaint: CONFUSION, FEVER Time Seen by Provider: 02/19/21 08:22 Source: patient Mode of arrival: ambulatory Limitations: altered mental status History of Present Illness Provider complaint: Altered mental status Radiation: non-radiation Severity: moderate Relieved By: + none Exacerbated By: + none Associated symptoms: + denies other symptoms Treatments prior to arrival: none This is an 81-year-old female presents emergency department via EMS after called due to concern for increased confusion. He described to EMS that the patient "started going downhill" yesterday. He stated to EMS that she had a fever, however on arrival here patient was afebrile. Denies any recent change in her medications or other known sick contact. He told EMS he has not recently been ill. On arrival patient is aware she is at the hospital, knows her name, she does not however know her birthdate, cannot provide any additional history or detail. She denies any current pain at this time. No other information available. Pt seen during a time of high acuity and national emergency pandemic while wearing PPE. Home Medications Medication Instructions Recorded Confirmed Type cholecalciferol (vitamin D3) 1,000 unit PO QAM 05/31/18 02/19/21 History [Vitamin D3] multivitamin 1 tab PO QAM 05/31/18 02/19/21 History omega [id number] oil [Fish Oil] 1 cap PO QAM 05/31/18 02/19/21 History polyethylene glycol 3350 17 gram 8.5 g PO QPM ea 01/21/20 02/19/21 History oral powder packet gabapentin 400 mg capsule 400 mg PO TID #90 cap 11/27/20 02/19/21 Rx atorvastatin 20 mg tablet 20 mg PO QPM #90 tab 12/12/20 02/19/21 Rx lisinopril 40 mg tablet 40 mg PO QAM #90 tab 01/02/21 02/19/21 Rx tramadol 50 mg tablet 50 - 100 mg PO TID PRN #270 tab 01/21/21 02/19/21 Rx aspirin 81 mg PO Q OTHER DAY 02/19/21 02/19/21 History celecoxib 100 mg PO BID 02/19/21 02/19/21 History Allergies Allergy/AdvReac Type Severity Reaction Status Date / Time cyclobenzaprine AdvReac Mild does not Verified 02/19/21 10:06 feel good when taking Past Med/Surg History Medical History Chronic back pain Diffuse myofascial pain syndrome Hyperglycemia Mild and stable Hyperlipidemia Hypertension Lumbar radicular pain Spinal stenosis Surgical History History of colonoscopy History of dilatation and curettage Removed uterine polyp History of left hip replacement (~02/2020) History of tooth extraction History of total shoulder replacement LEFT Family History Mother Stroke Father Cancer Denies family history of Ovarian cancer Prostate cancer Myocardial infarction Breast cancer Colorectal cancer Social History Smoking Status: Never smoker Cigarettes Per Day: 0; Second Hand Exposure: No; Do You Dip or Chew Tobacco: No; Tobacco Cessation Education Requested by Patient: No Hx Alcohol Use: No Hx Substance Use: No Preferred Language: Armenian Communication Ability: Impaired Visual Impairment: No Limitations Hearing Ability: Normal Community Development Planner Required: No Beliefs That Will Affect Care: None marital status: Current Living Situation: Spouse current occupational status: employed and retired Other Information That Helps Us Care for You: No Feels Safe at Home: Yes Safety Concerns: Feels Safe At This Time Assistive Devices: None Review of Systems Unobtainable due to cognitive status Physical Exam Vital Signs Vital Signs - 24 hr 02/19/21 08:33 02/19/21 08:43 02/19/21 09:00 Temperature 36.7 C Temperature Source Oral Pulse Rate 60 64 Pulse Rate [Apical] Pulse Rate from SpO2 Sensor 60 Pulse Strength [Apical] Respiratory Rate 26 H 26 H 27 H Respiratory Effort / Characteristics Respiratory Depth Respiratory Pattern Blood Pressure 154/70 H 156/69 H Blood Pressure [Right Arm] Blood Pressure Mean 98 98 Blood Pressure Mean [Right Arm] Blood Pressure Position [Right Arm] Pulse Oximetry 94 95 Oxygen Delivery Method Room Air Sepsis Recent Fever Within 48 Hours Yes Sepsis New/Unexplained Change in Mental Status Yes Sepsis Action Taken by Nursing No Action Required 02/19/21 09:07 02/19/21 09:30 02/19/21 09:31 Temperature Temperature Source Pulse Rate 66 Pulse Rate [Apical] Pulse Rate from SpO2 Sensor 64 Pulse Strength [Apical] Respiratory Rate 26 H Respiratory Effort / Characteristics Respiratory Depth Respiratory Pattern Blood Pressure 154/91 H Blood Pressure [Right Arm] Blood Pressure Mean 112 Blood Pressure Mean [Right Arm] Blood Pressure Position [Right Arm] Pulse Oximetry 96 96 96 Oxygen Delivery Method Room Air Room Air Sepsis Recent Fever Within 48 Hours Sepsis New/Unexplained Change in Mental Status Sepsis Action Taken by Nursing 02/19/21 10:30 02/19/21 11:00 02/19/21 12:00 Temperature Temperature Source Pulse Rate 64 Pulse Rate [Apical] 64 62 Pulse Rate from SpO2 Sensor 61 Pulse Strength [Apical] Normal Respiratory Rate 24 22 18 Respiratory Effort / Characteristics Non-Labored Spontaneous Respiratory Depth Normal Normal Respiratory Pattern Regular Regular Blood Pressure 141/76 H Blood Pressure [Right Arm] 161/70 H 162/86 H Blood Pressure Mean 97 Blood Pressure Mean [Right Arm] 100 111 Blood Pressure Position [Right Arm] Lying Pulse Oximetry 96 97 96 Oxygen Delivery Method Room Air Room Air Sepsis Recent Fever Within 48 Hours Sepsis New/Unexplained Change in Mental Status Sepsis Action Taken by Nursing GENERAL: alert, well appearing, well nourished, no distress, non-toxic EYE EXAM: normal conjunctiva, PERRL and EOM's grossly intact OROPHARYNX: no exudate, no erythema, lips, buccal mucosa, and tongue normal and mucous membranes are moist NECK: supple, no nuchal rigidity, no adenopathy, non-tender LUNGS: Clear to auscultation. Normal chest wall mechanics, no w/r/r HEART: no murmurs, S1 normal and S2 normal ABDOMEN: abdomen soft, non-tender, normo-active bowel sounds, no masses, no rebound or guarding. BACK: Back is symmetrical on inspection and there is no deformity, no midline tenderness, no CVA tenderness. SKIN: no rashes and no bruising UPPER EXTREMITIES: upper extremities are grossly normal. FROM, nml pulses b/l. LOWER EXTREMITIES: No pitting edema. FROM, nml pulses b/l. NEURO EXAM: Normal sensorium, cranial nerves II-XII grossly intact, normal speech, no facial droop, no gross weakness of arms, no gross weakness of legs. Gross sensation intact. Course Course 103: Discussed with daughter at bedside. No recent illness or fevers. The did speak on 6/29 in the evening and she was normal. Typically oriented and active. They were concerned for UTI or TIA. Fully vaccinated for COVID. 1152: Discussed with Dr. Álvarez. Will add doxy for possible anaplasmosis. Administered Medications Discontinued Medications Sodium Chloride (Nss 1000ml) 1,000 mls @ 999 mls/hr IV .Q1H1M SULTANA Stop: 02/19/21 10:00 Last Infusion: 02/19/21 10:51 Dose: 0 mls/hr Documented by: [id number] Admin: 02/19/21 09:44 Dose: 999 mls/hr Documented by: [id number] Ceftriaxone Sodium (Rocephin) 2,000 mg in 70 mls @ 140 mls/hr IV NOW STA Stop: 02/19/21 11:05 Last Infusion: 02/19/21 11:25 Dose: 0 mls/hr Documented by: [id number] Admin: 02/19/21 10:52 Dose: 140 mls/hr Documented by: [id number] Doxycycline Hyclate 100 mg/ (Dextrose) 110 mls @ 50 mls/hr IV NOW STA Stop: 02/19/21 14:04 Last Infusion: 02/19/21 15:13 Dose: 0 mls/hr Documented by: [id number] Admin: 02/19/21 12:51 Dose: 50 mls/hr Documented by: [id number] Ioversol (Optiray 320 125ml) 120 ml IV ONCE ONE Stop: 02/19/21 11:07 Last Admin: 02/19/21 11:06 Dose: 120 ml Documented by: [id number] Medical Decision Making Differential Diagnosis Differential diagnoses includes but is not limited to toxic, metabolic, i nfectious, traumatic, cardiac, neurologic, hematologic, psychiatric and inflammatory etiologies. Medical Records Attestation: I reviewed the patient's medical records. Home Medications Current Medication List: was personally reviewed by me Laboratory Data Attestation: I reviewed the patient's lab results. Result diagrams: 02/19/21 09:42 02/19/21 09:42 Lab Results 02/19/21 02/19/21 02/19/21 Range/Units 08:29 08:29 08:30 WBC (4.8-10.8) K/uL RBC (4.2-5.4) M/uL Hgb (12.0-16.0) g/dL Hct (37-47) % MCV (80-100) fL MCH (25-34) pg MCHC (32-36) g/dL RDW Std Deviation (36.4-46.3) fL RDW Coeff of [place] (11.5-14.5) % Plt Count (130-400) K/uL MPV (7.4-10.4) fL Immature Gran % (Auto) % Neut % (Auto) % Lymph % (Auto) % [place] % (Auto) % Eos % (Auto) % Baso % (Auto) % Neut # (Auto) (1.4-6.5) K/uL Lymph # (Auto) (1.2-3.4) K/uL [place] # (Auto) (0.11-0.59) K/uL Eos # (Auto) (0-0.5) K/uL Baso # (Auto) (0-0.2) K/uL Immature Gran # (Auto) (0.00-0.02) K/uL Platelet Estimate (Normal) RBC Morphology PT (9.0-12.0) Seconds INR (0.9-1.1) APTT (21.0-31.0) Seconds PTT Ratio Sodium (136-145) mmol/L Potassium (3.5-5.1) mmol/L Chloride (98-107) mmol/L Carbon Dioxide (21-32) mmol/L Anion Gap (3-11) BUN (7-18) mg/dl Creatinine (0.6-1.2) mg/dl Est Cr Clr Drug Dosing ml/min Est GFR ( Amer) ml/min Est GFR (Non-Af Amer) ml/min BUN/Creatinine Ratio (10-20) Glucose (70-99) mg/dl Lactate (0.4-2.0) mmol/L Calcium (8.5-10.1) mg/dl Magnesium (1.8-2.4) mg/dl Total Bilirubin (0.2-1) mg/dl AST (15-37) U/L ALT (12-78) U/L Alkaline Phosphatase (45-117) U/L Troponin I (0-0.045) ng/ml Total Protein (6.4-8.2) gm/dl Albumin (3.4-5.0) gm/dl Globulin (2.5-4.0) gm/dl Albumin/Globulin Ratio (0.9-2) Procalcitonin (0-0.5) ng/ml Urine Color Dark Yellow Urine Appearance Clear (Clear) Urine pH 6.5 (4.5-7.5) Ur Specific [place] 1.026 (1.000-1.030) Urine Protein 1+ H (Negative) Urine Glucose (UA) Negative (Negative) Urine Ketones Negative (Negative) Urine Blood 1+ H (Negative) Urine Nitrite Negative (Negative) Urine Bilirubin 1+ H (Negative) Urine Urobilinogen Negative (Negative) Ur Leukocyte Esterase Negative (Negative) Urine WBC (Auto) 1-5 (0-5) /hpf Urine RBC (Auto) 10-30 H (0-4) /hpf U Hyaline Cast (Auto) 1-5 (0-5) /lpf U Epithel Cells (Auto) 10-20 H (0-5) /lpf Urine Bacteria (Auto) Negative (Negative) Lyme Disease IgG Ab (Negative) Lyme Disease IgM Ab (Negative) COVID-19 Eval Order Covid19 at [facility] SARS-CoV-2 (PCR) NEGATIVE (Negative) 02/19/21 02/19/21 02/19/21 Range/Units 09:42 09:42 09:42 WBC 3.82 L (4.8-10.8) K/uL RBC 4.69 (4.2-5.4) M/uL Hgb 14.7 (12.0-16.0) g/dL Hct 41.5 (37-47) % MCV 88.5 (80-100) fL MCH 31.3 (25-34) pg MCHC 35.4 (32-36) g/dL RDW Std Deviation 44.0 (36.4-46.3) fL RDW Coeff of Nakul 13.5 (11.5-14.5) % Plt Count 75 L (130-400) K/uL MPV 11.4 H (7.4-10.4) fL Immature Gran % (Auto) 0.0 % Neut % (Auto) 85.1 % Lymph % (Auto) 8.1 % [place] % (Auto) 6.8 % Eos % (Auto) 0.0 % Baso % (Auto) 0.0 % Neut # (Auto) 3.25 (1.4-6.5) K/uL Lymph # (Auto) 0.31 L (1.2-3.4) K/uL [place] # (Auto) 0.26 (0.11-0.59) K/uL Eos # (Auto) 0.00 (0-0.5) K/uL Baso # (Auto) 0.00 (0-0.2) K/uL Immature Gran # (Auto) 0.00 (0.00-0.02) K/uL Platelet Estimate Decreased L (Normal) RBC Morphology Unremarkable PT 11.4 (9.0-12.0) Seconds INR 1.1 (0.9-1.1) APTT 28.5 (21.0-31.0) Seconds PTT Ratio 1.1 Sodium 135 L (136-145) mmol/L Potassium 3.8 (3.5-5.1) mmol/L Chloride 106 (98-107) mmol/L Carbon Dioxide 26 (21-32) mmol/L Anion Gap 3.0 (3-11) BUN 14 (7-18) mg/dl Creatinine 0.74 (0.6-1.2) mg/dl Est Cr Clr Drug Dosing 75.0 ml/min Est GFR ( Amer) 86.8 ml/min Est GFR (Non-Af Amer) 74.9 ml/min BUN/Creatinine Ratio 18.3 (10-20) Glucose 135 H (70-99) mg/dl Lactate (0.4-2.0) mmol/L Calcium 8.9 (8.5-10.1) mg/dl Magnesium 2.1 (1.8-2.4) mg/dl Total Bilirubin 1.9 H (0.2-1) mg/dl AST 22 (15-37) U/L ALT 25 (12-78) U/L Alkaline Phosphatase 49 (45-117) U/L Troponin I < 0.015 (0-0.045) ng/ml Total Protein 7.2 (6.4-8.2) gm/dl Albumin 3.5 (3.4-5.0) gm/dl Globulin 3.7 (2.5-4.0) gm/dl Albumin/Globulin Ratio 0.9 (0.9-2) Procalcitonin (0-0.5) ng/ml Urine Color Urine Appearance (Clear) Urine pH (4.5-7.5) Ur Specific [place] (1.000-1.030) Urine Protein (Negative) Urine Glucose (UA) (Negative) Urine Ketones (Negative) Urine Blood (Negative) Urine Nitrite (Negative) Urine Bilirubin (Negative) Urine Urobilinogen (Negative) Ur Leukocyte Esterase (Negative) Urine WBC (Auto) (0-5) /hpf Urine RBC (Auto) (0-4) /hpf U Hyaline Cast (Auto) (0-5) /lpf U Epithel Cells (Auto) (0-5) /lpf Urine Bacteria (Auto) (Negative) Lyme Disease IgG Ab (Negative) Lyme Disease IgM Ab (Negative) COVID-19 Eval Order SARS-CoV-2 (PCR) (Negative) 02/19/21 02/19/21 02/19/21 Range/Units 09:42 09:42 09:42 WBC (4.8-10.8) K/uL RBC (4.2-5.4) M/uL Hgb (12.0-16.0) g/dL Hct (37-47) % MCV (80-100) fL MCH (25-34) pg MCHC (32-36) g/dL RDW Std Deviation (36.4-46.3) fL RDW Coeff of Nakul (11.5-14.5) % Plt Count (130-400) K/uL MPV (7.4-10.4) fL Immature Gran % (Auto) % Neut % (Auto) % Lymph % (Auto) % [place] % (Auto) % Eos % (Auto) % Baso % (Auto) % Neut # (Auto) (1.4-6.5) K/uL Lymph # (Auto) (1.2-3.4) K/uL [place] # (Auto) (0.11-0.59) K/uL Eos # (Auto) (0-0.5) K/uL Baso # (Auto) (0-0.2) K/uL Immature Gran # (Auto) (0.00-0.02) K/uL Platelet Estimate (Normal) RBC Morphology PT (9.0-12.0) Seconds INR (0.9-1.1) APTT (21.0-31.0) Seconds PTT Ratio Sodium (136-145) mmol/L Potassium (3.5-5.1) mmol/L Chloride (98-107) mmol/L Carbon Dioxide (21-32) mmol/L Anion Gap (3-11) BUN (7-18) mg/dl Creatinine (0.6-1.2) mg/dl Est Cr Clr Drug Dosing ml/min Est GFR ( Amer) ml/min Est GFR (Non-Af Amer) ml/min BUN/Creatinine Ratio (10-20) Glucose (70-99) mg/dl Lactate 1.4 (0.4-2.0) mmol/L Calcium (8.5-10.1) mg/dl Magnesium (1.8-2.4) mg/dl Total Bilirubin (0.2-1) mg/dl AST (15-37) U/L ALT (12-78) U/L Alkaline Phosphatase (45-117) U/L Troponin I (0-0.045) ng/ml Total Protein (6.4-8.2) gm/dl Albumin (3.4-5.0) gm/dl Globulin (2.5-4.0) gm/dl Albumin/Globulin Ratio (0.9-2) Procalcitonin 0.24 (0-0.5) ng/ml Urine Color Urine Appearance (Clear) Urine pH (4.5-7.5) Ur Specific [place] (1.000-1.030) Urine Protein (Negative) Urine Glucose (UA) (Negative) Urine Ketones (Negative) Urine Blood (Negative) Urine Nitrite (Negative) Urine Bilirubin (Negative) Urine Urobilinogen (Negative) Ur Leukocyte Esterase (Negative) Urine WBC (Auto) (0-5) /hpf Urine RBC (Auto) (0-4) /hpf U Hyaline Cast (Auto) (0-5) /lpf U Epithel Cells (Auto) (0-5) /lpf Urine Bacteria (Auto) (Negative) Lyme Disease IgG Ab Negative (Negative) Lyme Disease IgM Ab Negative (Negative) COVID-19 Eval Order SARS-CoV-2 (PCR) (Negative) Imaging Data Radiologist's Impression: Chest X-Ray 02/19/21 08:48 SINGLE VIEW CHEST CLINICAL HISTORY: Sepsis. FINDINGS: 2 AP, portable, upright chest radiographs are compared to study dated 02/13/2020. The examination is degraded by portable technique and patient rotation. There are calcified mediastinal lymph nodes. The heart is enlarged noting atherosclerotic calcification of the thoracic aorta. The pulmonary vasculature is noncongested. Chronic interstitial thickening is similar to previous. Mild atelectasis is noted in the lung bases. No airspace consolidation or large pleural effusion is identified. No pneumothorax is seen. The skeletal structures are osteopenic. The bony thorax is grossly intact. A left shoulder arthroplasty is in place. IMPRESSION: Cardiomegaly with no acute cardiopulmonary abnormality. ACT 112: Negative or not required by law. Electronically signed by: Lucius Posey M.D. 02/19/2021 10:[address] 02/19/21 08:[address] DOSE: 729.78 mGycm HISTORY: Altered mental status. TECHNIQUE: Multiaxial CT images of the head were performed without the use of intravenous contrast. Automated exposure control was utilized for this study. A dose lowering technique was utilized adhering to the principles of ALARA. Comparison: None. Findings: The paranasal sinuses and mastoid air cells are clear. The calvarium and skull base are intact. There is no mass, hematoma, midline shift, acute infarct. White matter hypodensity is nonspecific but suggestive of microvascular ischemic change. The ventricles and sulci demonstrate mild age-related involutional changes. 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 Impression: No acute intracranial abnormality. ACT 112: Negative or not required by law. Electronically signed by: Petey Quinones M.D. 02/19/2021 10:05 AM Head CTA 02/19/21 10:38 HEAD & NECK CTA HISTORY: Altered mental status TECHNIQUE: Multiaxial CT images of the head were performed following the intravenous administration of contrast to evaluate the major cerebral vessels. Multiaxial CT images of the neck were also performed following the intravenous administration of contrast to evaluate the major cervical vessels. Maximum intensity projection images were also obtained. A dose lowering technique was utilized adhering to the principles of ALARA. COMPARISON: Head CT 02/19/2021. FINDINGS: There is no mass, hematoma, midline shift, or acute infarct. Visualized intracranial internal carotid arteries and basilar artery are widely patent. There is no significant stenosis, occlusion, or aneurysm seen within the bilateral ACAs, MCAs, or windscreen fitter. Mild to moderate calcified plaque within the distal vertebral arteries and bilateral carotid siphons. This results in mild focal stenosis within the bilateral distal vertebral arteries. The right P1 segment is absent with the right COCKTAIL LOUNGE MANAGER fed through the right posterior communicating artery. This is consistent with a normal variant. The major dural venous sinuses appear patent. The proximal great vessels are widely patent. There is no significant stenosis , occlusion, or dissection identified within the bilateral common carotid, internal carotid, or vertebral arteries. A 3 cm groundglass density within the left lung apex. This could represent a small focus of inflammatory/infectious change. However, [address] follow-up recommended to exclude the possibility of a low-grade neoplasm. A 1.1 cm hypodense right thyroid nodule. This does not meet CT criteria for follow-up. Mild calcified plaque within the bilateral carotid bulbs. IMPRESSION: 1. No significant stenosis, occlusion, or aneurysm within the [place] of [place]. 2. No significant stenosis, occlusion, or dissection identified within the carotid or cervical vertebral arteries. 3. Mild focal narrowing within the distal intracranial portions of the bilateral vertebral arteries due to the calcified plaque. 4. A 3 cm groundglass density within the left lung apex. This could represent a small focus of inflammatory/infectious change. However, [address] follow-up recommended to exclude the possibility of a low-grade neoplasm. ACT 112: Positive. There are findings on this exam that require communication between the performing entity and the patient following Patient Test Result Information Act ([place] Act 112) guidelines. Electronically signed by: Petey Quinones M.D. 02/19/2021 11:30 AM Neck CTA 02/19/21 10:38 HEAD & NECK CTA HISTORY: Altered mental status TECHNIQUE: Multiaxial CT images of the head were performed following the intravenous administration of contrast to evaluate the major cerebral vessels. Multiaxial CT images of the neck were also performed following the intravenous administration of contrast to evaluate the major cervical vessels. Maximum in tensity projection images were also obtained. A dose lowering technique was utilized adhering to the principles of ALARA. COMPARISON: Head CT 02/19/2021. FINDINGS: There is no mass, hematoma, midline shift, or acute infarct. Visualized intracranial internal carotid arteries and basilar artery are widely patent. There is no significant stenosis, occlusion, or aneurysm seen within the bilateral ACAs, MCAs, or windscreen fitter. Mild to moderate calcified plaque within the distal vertebral arteries and bilateral carotid siphons. This results in mild focal stenosis within the bilateral distal vertebral arteries. The right P1 segment is absent with the right COCKTAIL LOUNGE MANAGER fed through the right posterior communicating artery. This is consistent with a normal variant. The major dural venous sinuses appear patent. The proximal great vessels are widely patent. There is no significant stenosis, occlusion, or dissection identified within the bilateral common carotid, internal carotid, or vertebral arteries. A 3 cm groundglass density within the left lung apex. This could represent a small focus of inflammatory /infectious change. However, [address] follow-up recommended to exclude the possibility of a low-grade neoplasm. A 1.1 cm hypodense right thyroid nodule. This does not meet CT criteria for follow-up. Mild calcified plaque within the bilateral carotid bulbs. IMPRESSION: 1. No significant stenosis, occlusion, or aneurysm within the [place] of [place]. 2. No significant stenosis, occlusion, or dissection identified within the carot id or cervical vertebral arteries. 3. Mild focal narrowing within the distal intracranial portions of the bilateral vertebral arteries due to the calcified plaque. 4. A 3 cm groundglass density within the left lung apex. This could represent a small focus of inflammatory/infectious change. However, [address] follow-up recommended to exclude the possibility of a low-grade neoplasm. ACT 112: Positive. There are findings on this exam that require communication between the performing entity and the patient following Patient Test Result Information Act ([place] Act 112) guidelines. Electronically signed by: Petey Quinones M.D. 02/19/2021 11:30 AM ECG Data Attestation: I personally reviewed and interpreted this ECG as follows: Indication: + altered mental status Rate (beats per minute): 65 Rhythm: + normal sinus ECG Intervals/blocks: + Normal QRS and + Normal QT ECG [place]: + Normal ECG ST segments: + T-wave inversions (I, II, aVL, aVF, V4-6) MDM Narrative Patient presents here via EMS due to altered mental status as noted by family. Patient's confusion has been evolving over the last 36 hours according to family that came to bedside. Labs drawn and sent, sepsis work-up was initially started precaution. Family initially concern for possible urinary tract infection due to recent urinary incontinence. Patient was afebrile and hemodynamically stable here. No recent change in any medications. Patient found to have leukopenia and thrombocytopenia raising increased suspicion for tickborne illness. Lyme was added as well as anaplasmosis. Due to concern for possible Lyme and family's concern for UTI, patient given 2 g of Rocephin IV. Cultures otherwise pending. CT and CT angiography reassuring, chest x-ray reassuring also. Urine ultimately found to be negative. Additional discussion with family at bedside regarding results and plan of care at this time. Case discussed with hospitalist for additional evaluation and management. Doxycycline added to cover possible anaplasmosis although Lyme and anaplasmosis were still pending at the time of this discussion. I do not suspect meningitis/encephalitis, occult vascular etiology. Patient did appear clinically dehydrated and was started on IV fluid rehydration. Given lack of findings on CT and CT angiography as well as a nonfocal neuro exam at bedside despite difficulty following commands I do not suspect CVA. An order was placed for continuous cardiac monitoring. The monitor shows a rate of _66_ with _normal sinus_ rhythm. Impression & Plan Altered mental status, Leukopenia, Thrombocytopenia, Hyperbilirubinemia Discharge Plan Visit Data Chief Complaint: Confusion Stated Complaint: CONFUSION, FEVER ED Provider: Rahel Victor Discharge Problem: Altered mental status, Leukopenia, Thrombocytopenia, Hyperbilirubinemia Patient Disposition: Admitted As Inpatient Discharge Instructions Interventions: ED Discharge Assessment Last Done: 02/19/21 14:54 Discharge Problem: Altered mental status Qualifiers: Altered mental status type: unspecified Qualified Code(s): R41.82 - Altered mental status, unspecified Leukopenia Qualifiers: Leukopenia type: unspecified Qualified Code(s): D72.819 - Decreased white blood cell count, unspecified
[2021-02-19 10:02] LABS: INR 1.1 (0.9-1.1); Partial Thromboplastin Ratio 1.1; Partial Thromboplastin Time 28.5 Seconds (21.0-31.0); Prothrombin Time 11.4 Seconds (9.0-12.0)
--- NOTE | 2021-02-19 10:06 | CT Scan Report ---
HEAD CT NONCONTRAST CT DOSE: 729.78 mGycm HISTORY: Altered mental status. TECHNIQUE: Multiaxial CT images of the head were performed without the use of intravenous contrast. A utomated exposure control was utilized for this study. A dose lowering technique was utilized adheri ng to the principles of ALARA. Comparison: None. Findings: The paranasal sinuses and mastoid air cells are clear. The calvarium and skull base are int act. There is no mass, hematoma, midline shift, acute infarct. White matter hypodensity is nonspecifi c but suggestive of microvascular ischemic change. The ventricles and sulci demonstrate mild age-rela bharathi involutional changes. 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 Impression: No acute intracranial abnormality. ACT 112: Negative or not required by law. Electronically signed by: Petey Quinones M.D. 02/19/2021 10:05 AM
[2021-02-19 10:08] LABS: Alanine Aminotransferase 25 U/L (12-78); Albumin Level 3.5 gm/dl (3.4-5.0); Aspartate Aminotransferase 22 U/L (15-37); BUN Creatinine Ratio 18.3 (10-20); Blood Urea Nitrogen 14 mg/dl (7-18); Calcium 8.9 mg/dl (8.5-10.1); Carbon Dioxide 26 mmol/L (21-32); Chloride 106 mmol/L (98-107); Est GFR (African American) 86.8 ml/min; Est GFR (Non-African American) 74.9 ml/min; Glucose 135 mg/dl (70-99); Magnesium 2.1 mg/dl (1.8-2.4); Potassium 3.8 mmol/L (3.5-5.1); Sodium 135 mmol/L (136-145)
[2021-02-19 10:13] LABS: Albumin Globulin Ratio 0.9 (0.9-2); Alkaline Phosphatase 49 U/L (45-117); Bilirubin,Total 1.9 mg/dl (0.2-1); Globulin 3.7 gm/dl (2.5-4.0); Total Protein 7.2 gm/dl (6.4-8.2); Troponin I < 0.015 ng/ml (0-0.045)
[2021-02-19 10:15] LABS: Hematocrit (blood only) 41.5 % (37-47); Hemoglobin 14.7 g/dL (12.0-16.0); Mean Corpuscular Hemoglobin 31.3 pg (25-34); Mean Corpuscular Hgb Conc 35.4 g/dL (32-36); Mean Corpuscular Volume 88.5 fL (80-100); RDW Coefficient of Variation 13.5 % (11.5-14.5); Red Blood Count 4.69 M/uL (4.2-5.4); White Blood Count 3.82 K/uL (4.8-10.8)
--- NOTE | 2021-02-19 10:19 | XRay Report ---
SINGLE VIEW CHEST CLINICAL HISTORY: Sepsis. FINDINGS: 2 AP, portable, upright chest radiographs are compared to study dated 02/13/2020. The examin ation is degraded by portable technique and patient rotation. There are calcified mediastinal lymph nodes. The heart is enlarged noting atherosclerotic calcification of the thoracic aorta. The pulmona ry vasculature is noncongested. Chronic interstitial thickening is similar to previous. Mild atelecta sis is noted in the lung bases. No airspace consolidation or large pleural effusion is identified. No pneumothorax is seen. The skeletal structures are osteopenic. The bony thorax is grossly intact. A l eft shoulder arthroplasty is in place. IMPRESSION: Cardiomegaly with no acute cardiopulmonary abnormality. ACT 112: Negative or not required by law. Electronically signed by: Lucius Posey M.D. 02/19/2021 10:18 AM
[2021-02-19 10:25] LABS: Mean Platelet Volume 11.4 fL (7.4-10.4); Platelet Count 75 K/uL (130-400)
[2021-02-19 10:26] LABS: Lymphocytes # (auto) 0.31 K/uL (1.2-3.4); Lymphocytes % (auto) 8.1 %; Monocytes # (auto) 0.26 K/uL (0.11-0.59); Monocytes % (auto) 6.8 %; Neutrophils # (auto) 3.25 K/uL (1.4-6.5); Neutrophils % (auto) 85.1 %; Platelet Estimate Decreased (Normal); RBC Morphology Unremarkable
[2021-02-19] MEDS ORDERED: cefTRIAXone SODIUM 2,000 MG/70 ML BAG IV STA (10:36)
[2021-02-19] MEDS ORDERED: OPTIRAY 320 125ml IV ONE (11:06)
--- NOTE | 2021-02-19 11:31 | CT Scan Report ---
HEAD & NECK CTA HISTORY: Altered mental status TECHNIQUE: Multiaxial CT images of the head were performed following the intravenous administration o f contrast to evaluate the major cerebral vessels. Multiaxial CT images of the neck were also perform ed following the intravenous administration of contrast to evaluate the major cervical vessels. Maxim um intensity projection images were also obtained. A dose lowering technique was utilized adhering to the principles of ALARA. COMPARISON: Head CT 02/19/2021. FINDINGS: There is no mass, hematoma, midline shift, or acute infarct. Visualized intracranial internal carotid arteries and basilar artery are widely patent. There is no significant stenosis, occlusion, or aneur ysm seen within the bilateral ACAs, MCAs, or cyber operator. Mild to moderate calcified plaque within the dista l vertebral arteries and bilateral carotid siphons. This results in mild focal stenosis within the bi lateral distal vertebral arteries. The right P1 segment is absent with the right VAULT SERVICE MECHANIC fed through the right posterior communicating artery. This is consistent with a normal variant. The major dural venou s sinuses appear patent. The proximal great vessels are widely patent. There is no significant stenosis, occlusion, or disse ction identified within the bilateral common carotid, internal carotid, or vertebral arteries. A 3 cm groundglass density within the left lung apex. This could represent a small focus of inflammatory/in fectious change. However, [address] follow-up recommended to exclude the possibility of a low-grade neoplasm. A 1.1 cm hypodense right thyroid nodule. This does not meet CT criteria for follow-up. Mild calcified plaque within the bilateral carotid bulbs. IMPRESSION: 1. No significant stenosis, occlusion, or aneurysm within the [place]. 2. No significant stenosis, occlusion, or dissection identified within the carotid or cervical verteb ral arteries. 3. Mild focal narrowing within the distal intracranial portions of the bilateral vertebral arteries d ue to the calcified plaque. 4. A 3 cm groundglass density within the left lung apex. This could represent a small focus of inflam matory/infectious change. However, [address] follow-up recommended to exclude the po ssibility of a low-grade neoplasm. ACT 112: Positive. There are findings on this exam that require communication between the performing entity and the patient following Patient Test Result Information Act ([place] Act 112) guidelines. Electronically signed by: Petey Quinones M.D. 02/19/2021 11:30 AM
--- NOTE | 2021-02-19 11:31 | CT Scan Report ---
HEAD & NECK CTA HISTORY: Altered mental status TECHNIQUE: Multiaxial CT images of the head were performed following the intravenous administration o f contrast to evaluate the major cerebral vessels. Multiaxial CT images of the neck were also perform ed following the intravenous administration of contrast to evaluate the major cervical vessels. Maxim um intensity projection images were also obtained. A dose lowering technique was utilized adhering to the principles of ALARA. COMPARISON: Head CT 02/19/2021. FINDINGS: There is no mass, hematoma, midline shift, or acute infarct. Visualized intracranial internal carotid arteries and basilar artery are widely patent. There is no significant stenosis, occlusion, or aneur ysm seen within the bilateral ACAs, MCAs, or reaming machine tender. Mild to moderate calcified plaque within the dista l vertebral arteries and bilateral carotid siphons. This results in mild focal stenosis within the bi lateral distal vertebral arteries. The right P1 segment is absent with the right SURVEILLANCE MANAGER fed through the right posterior communicating artery. This is consistent with a normal variant. The major dural venou s sinuses appear patent. The proximal great vessels are widely patent. There is no significant stenosis, occlusion, or disse ction identified within the bilateral common carotid, internal carotid, or vertebral arteries. A 3 cm groundglass density within the left lung apex. This could represent a small focus of inflammatory/in fectious change. However, [address] follow-up recommended to exclude the possibility of a low-grade neoplasm. A 1.1 cm hypodense right thyroid nodule. This does not meet CT criteria for follow-up. Mild calcified plaque within the bilateral carotid bulbs. IMPRESSION: 1. No significant stenosis, occlusion, or aneurysm within the [place] of [place]. 2. No significant stenosis, occlusion, or dissection identified within the carotid or cervical verteb ral arteries. 3. Mild focal narrowing within the distal intracranial portions of the bilateral vertebral arteries d ue to the calcified plaque. 4. A 3 cm groundglass density within the left lung apex. This could represent a small focus of inflam matory/infectious change. However, [address] follow-up recommended to exclude the po ssibility of a low-grade neoplasm. ACT 112: Positive. There are findings on this exam that require communication between the performing entity and the patient following Patient Test Result Information Act ([place] Act 112) guidelines. Electronically signed by: Petey Quinones M.D. 02/19/2021 11:30 AM
[2021-02-19] MEDS ORDERED: DOXYCYCLINE HYCLATE 100 MG in DEXTROSE 5% 100 ML IV STA (11:53)
[2021-02-19 12:08] LABS: Lyme Ab IgG w/WB Rflx Negative (Negative); Lyme Ab IgM w/WB Rflx Negative (Negative)
--- NOTE | 2021-02-19 12:11 | History & Physical Report ---
Date of Service February 19, 2021 Assessment & Plan (1) Acute metabolic encephalopathy: Patient presents with 24 hours has confusion delirium. Reportedly febrile in EMS but not here. Does have thrombocytopenia, leukopenia, and elevated LFTs-could be consistent with anaplasmosis. CT head noncontrast negative for acute issues, CT angiogram head and neck also negative. Urinalysis negative for infection, no renal failure or electrolyte abnormalities, chest x-ray negative. Lyme disease negative-Covid negative -Highly suspect anaplasmosis given that she works out in the garden all the time [place] and with clinical signs and symptoms -Admit to PCU -Start doxycycline 100 mg IV twice daily -Supportive care, IV fluids -Observe for clinical improvement -Check MRI of the brain to rule out stroke but seems unlikely with nonfocal neuro exam -Follow blood cultures -Follow anaplasmosis PCR and peripheral smear but would treat with doxycycline x10 days regardless as PCR testing will take 5 to 7 days to return -check hepatitis panel, Abd US although seems low yield (2) Thrombocytopenia: As above, platelets 75 Likely secondary to anaplasmosis Anaplasmosis smear pending Follow CBC in the morning Check abdominal ultrasound to look for hepatosplenomegaly (3) Leukopenia: As above, could be secondary to viral infection versus anaplasmosis. Covid negative Follow CBC (4) Hypertension: Blood pressure here is mildly elevated Continue home lisinopril (5) Diffuse myofascial pain syndrome: Hold home NSAIDs while thrombocytopenic Hold home tramadol due to encephalopathy Hold home gabapentin due to encephalopathy (6) Hyperbilirubinemia: Bilirubin elevated at 1.69, otherwise LFTs normal Could be secondary to anaplasmosis as above Checking abdominal ultrasound No abdominal pain or tenderness on palpation (7) Abnormal ECG: ECG with T wave inversions that are new from previous in inferolateral leads Initial troponin negative, patient denies chest pain but is also encephalopathic No history of cardiac issues -Follow serial ECG and troponin Check echocardiogram Monitor on telemetry (8) Lumbar radicular pain: Holding home gabapentin and tramadol as above for encephalopathy Restart gabapentin when mental status improves to avoid withdrawal (9) Hyperlipidemia: Continue statin (10) Chronic back pain: As above (11) DVT prophylaxis: SCDs only due to thrombocytopenia for now Disposition-admit to PCU on observation, but may need longer stay depending on clinical course PT/OT consultations ordered due to generalized weakness and encephalopathy History of Present Illness Chief Complaint: Confusion Primary Care Provider: Alyson Kingsley MD This patient is an 81-year-old female with a history of chronic back pain with lumbar spinal stenosis, hyperlipidemia, HTN, prediabetes, diffuse myofascial pain syndrome, osteoarthritis, who presents to the ER with increased confusion that started yesterday. Her daughter reports that 2 days ago on her birthday she was totally normal herself and then her called the daughter yesterday and said that the patient was just not quite acting right. This morning she was very confused and had some urinary incontinence. EMS was called and EMS reported that the patient had a fever however was afebrile on arrival in the ER. No known sick contacts. When I saw the patient, she did not know why she was in the hospital. She denied headache or fevers or chills or sweats, denied chest pain or shortness of breath, denies nausea or vomiting, denies abdominal pain or diarrhea. She did admit that she felt tired but she was not able to tell me where she was or the date or time. Her daughter reports that normally she is extremely "sharp" and t hat her current mental status is nothing like her baseline. The patient denies any recent tick bites but daughter reports that the patient is always out in her garden working and [place]. She had no focal neuro deficits on arrival and had a negative CT noncontrast of the head as well as CT angiogram head and neck. Her urinalysis was negative, chest x-ray negative. On labs she was found though to have leukopenia, thrombocytopenia, and elevated bilirubin. Anaplasmosis was pending at the time of admission. Covid-19 was negative, troponin was negative, procalcitonin 0.24, lactate 1.4. She was given IV Rocephin and IV fluids in the ER. I also recommended doxycycline. Allergies Allergy/AdvReac Type Severity Reaction Status Date / Time cyclobenzaprine AdvReac Mild does not Verified 02/19/21 10:06 feel good when taking Home Medications Medication Instructions Recorded Confirmed Type cholecalciferol (vitamin D3) 1,000 unit PO QAM 05/31/18 02/19/21 History [Vitamin D3] multivitamin 1 tab PO QAM 05/31/18 02/19/21 History omega 9-slm-uzo-fish oil [Fish Oil] 1 cap PO QAM 05/31/18 02/19/21 History polyethylene glycol 3350 17 gram 8.5 g PO QPM ea 01/21/20 02/19/21 History oral powder packet gabapentin 400 mg capsule 400 mg PO TID #90 cap 11/27/20 02/19/21 Rx atorvastatin 20 mg tablet 20 mg PO QPM #90 tab 12/12/20 02/19/21 Rx lisinopril 40 mg tablet 40 mg PO QAM #90 tab 01/02/21 02/19/21 Rx tramadol 50 mg tablet 50 - 100 mg PO TID PRN #270 tab 01/21/21 02/19/21 Rx aspirin 81 mg PO Q OTHER DAY 02/19/21 02/19/21 History celecoxib 100 mg PO BID 02/19/21 02/19/21 History Past Med/Surg History Medical History Chronic back pain Diffuse myofascial pain syndrome Hyperglycemia Mild and stable Hyperlipidemia Hypertension Lumbar radicular pain Spinal stenosis Surgical History History of colonoscopy History of dilatation and curettage Removed uterine polyp History of left hip replacement (~02/2020) History of tooth extraction History of total shoulder replacement LEFT Family History Mother Stroke Father Cancer Denies family history of Ovarian cancer Prostate cancer Myocardial infarction Breast cancer Colorectal cancer Social History Smoking Status: Never smoker Cigarettes Per Day: 0; Second Hand Exposure: Yes (FATHER SMOKED PIPE); Hx Alcohol Use: No Hx Substance Use: No Preferred Language: [place] Islander Communication Ability: Effective Visual Impairment: No Limitations Hearing Ability: Normal Car Worker Required: No Beliefs That Will Affect Care: None marital status: Current Living Situation: Spouse current occupational status: employed and retired Feels Safe at Home: Yes Assistive Devices: Walker Review of Systems Review of Systems: All systems reviewed & are unremarkable except as noted in HPI & below Physical Exam Constitutional: WD/WN, vitals as above Eyes: PERRL, conjunctivae normal, anicteric sclerae ENMT: external ear and nose normal, oropharynx normal Neck: trachea midline, no thyromegaly Respiratory: normal respiratory effort, lungs clear to auscultation Cardiovascular: RRR, no murmur, no edema Chest (Breasts): Chest: normal inspection of chest Gastrointestinal (Abdomen): normal bowel sounds, soft, nontender, no hepatosplenomegaly Musculoskeletal: Extremities: extremities normal to inspection; no cyanosis and no clubbing Skin: no rashes, warm and dry (No rashes or tick bites noted) Neurologic: moves all extremities and awake; no focal motor deficits Able to pull herself up in the bed and move side to side Psychiatric: Orientation: alert (But drifts off to sleep when not answering questions), oriented to person and cooperative; + not oriented to place and + not oriented to time Eye Contact: + fair eye contact Speech: normal rate/rhythm/volume of speech Affect: euthymic affect Cognition: remote memory grossly intact; + recent memory not intact Lymphatic: no lymphedema Results & Data Results & Data ([facility]) Vital Signs (Past 12 Hours) Vital Signs Temp Pulse Resp BP Pulse Ox 02/19/21 10:30 64 24 141/76 H 96 02/19/21 09:31 66 26 H 154/91 H 96 02/19/21 09:30 96 02/19/21 09:07 96 02/19/21 09:00 64 27 H 156/69 H 95 02/19/21 08:43 36.7 C 60 26 H 154/70 H 94 02/19/21 08:33 26 H Laboratory Results 02/19/21 02/19/21 02/19/21 Range/Units 09:42 09:42 09:42 WBC (4.8-10.8) K/uL RBC (4.2-5.4) M/uL Hgb (12.0-16.0) g/dL Hct (37-47) % MCV (80-100) fL MCH (25-34) pg MCHC (32-36) g/dL RDW Std Deviation (36.4-46.3) fL RDW Coeff of Nakul (11.5-14.5) % Plt Count (130-400) K/uL MPV (7.4-10.4) fL Immature Gran % (Auto) % Neut % (Auto) % Lymph % (Auto) % [place]christ % (Auto) % Eos % (Auto) % Baso % (Auto) % Neut # (Auto) (1.4-6.5) K/uL Lymph # (Auto) (1.2-3.4) K/uL [place] # (Auto) (0.11-0.59) K/uL Eos # (Auto) (0-0.5) K/uL Baso # (Auto) (0-0.2) K/uL Immature Gran # (Auto) (0.00-0.02) K/uL Platelet Estimate (Normal) RBC Morphology PT (9.0-12.0) Seconds INR (0.9-1.1) APTT (21.0-31.0) Seconds PTT Ratio Sodium (136-145) mmol/L Potassium (3.5-5.1) mmol/L Chloride (98-107) mmol/L Carbon Dioxide (21-32) mmol/L Anion Gap (3-11) BUN (7-18) mg/dl Creatinine (0.6-1.2) mg/dl Est Cr Clr Drug Dosing ml/min Est GFR ( Amer) ml/min Est GFR (Non-Af Amer) ml/min BUN/Creatinine Ratio (10-20) Glucose (70-99) mg/dl Lactate (0.4-2.0) mmol/L Calcium (8.5-10.1) mg/dl Magnesium (1.8-2.4) mg/dl Total Bilirubin (0.2-1) mg/dl AST (15-37) U/L ALT (12-78) U/L Alkaline Phosphatase (45-117) U/L Troponin I (0-0.045) ng/ml Total Protein (6.4-8.2) gm/dl Albumin (3.4-5.0) gm/dl Globulin (2.5-4.0) gm/dl Albumin/Globulin Ratio (0.9-2) Procalcitonin 0.24 (0-0.5) ng/ml Urine Color Urine Appearance (Clear) Urine pH (4.5-7.5) Ur Specific Home (1.000-1.030) Urine Protein (Negative) Urine Glucose (UA) (Negative) Urine Ketones (Negative) Urine Blood (Negative) Urine Nitrite (Negative) Urine Bilirubin (Negative) Urine Urobilinogen (Negative) Ur Leukocyte Esterase (Negative) Urine WBC (Auto) (0-5) /hpf Urine RBC (Auto) (0-4) /hpf U Hyaline Cast (Auto) (0-5) /lpf U Epithel Cells (Auto) (0-5) /lpf Urine Bacteria (Auto) (Negative) A. phagocytophilum DNA Pending Lyme Disease IgG Ab Pending Lyme Disease IgM Ab Pending COVID-19 Eval Order SARS-CoV-2 (PCR) (Negative) 02/19/21 02/19/21 02/19/21 Range/Units 09:42 09:42 09:42 WBC (4.8-10.8) K/uL RBC (4.2-5.4) M/uL Hgb (12.0-16.0) g/dL Hct (37-47) % MCV (80-100) fL MCH (25-34) pg MCHC (32-36) g/dL RDW Std Deviation (36.4-46.3) fL RDW Coeff of Nakul (11.5-14.5) % Plt Count (130-400) K/uL MPV (7.4-10.4) fL Immature Gran % (Auto) % Neut % (Auto) % Lymph % (Auto) % Gilchrist % (Auto) % Eos % (Auto) % Baso % (Auto) % Neut # (Auto) (1.4-6.5) K/uL Lymph # (Auto) (1.2-3.4) K/uL [place]christ # (Auto) (0.11-0.59) K/uL Eos # (Auto) (0-0.5) K/uL Baso # (Auto) (0-0.2) K/uL Immature Gran # (Auto) (0.00-0.02) K/uL Platelet Estimate (Normal) RBC Morphology PT 11.4 (9.0-12.0) Seconds INR 1.1 (0.9-1.1) APTT 28.5 (21.0-31.0) Seconds PTT Ratio 1.1 Sodium 135 L (136-145) mmol/L Potassium 3.8 (3.5-5.1) mmol/L Chloride 106 (98-107) mmol/L Carbon Dioxide 26 (21-32) mmol/L Anion Gap 3.0 (3-11) BUN 14 (7-18) mg/dl Creatinine 0.74 (0.6-1.2) mg/dl Est Cr Clr Drug Dosing 75.0 ml/min Est GFR ( Amer) 86.8 ml/min Est GFR (Non-Af Amer) 74.9 ml/min BUN/Creatinine Ratio 18.3 (10-20) Glucose 135 H (70-99) mg/dl Lactate 1.4 (0.4-2.0) mmol/L Calcium 8.9 (8.5-10.1) mg/dl Magnesium 2.1 (1.8-2.4) mg/dl Total Bilirubin 1.9 H (0.2-1) mg/dl AST 22 (15-37) U/L ALT 25 (12-78) U/L Alkaline Phosphatase 49 (45-117) U/L Troponin I < 0.015 (0-0.045) ng/ml Total Protein 7.2 (6.4-8.2) gm/dl Albumin 3.5 (3.4-5.0) gm/dl Globulin 3.7 (2.5-4.0) gm/dl Albumin/Globulin Ratio 0.9 (0.9-2) Procalcitonin (0-0.5) ng/ml Urine Color Urine Appearance (Clear) Urine pH (4.5-7.5) Ur Specific Home (1.000-1.030) Urine Protein (Negative) Urine Glucose (UA) (Negative) Urine Ketones (Negative) Urine Blood (Negative) Urine Nitrite (Negative) Urine Bilirubin (Negative) Urine Urobilinogen (Negative) Ur Leukocyte Esterase (Negative) Urine WBC (Auto) (0-5) /hpf Urine RBC (Auto) (0-4) /hpf U Hyaline Cast (Auto) (0-5) /lpf U Epithel Cells (Auto) (0-5) /lpf Urine Bacteria (Auto) (Negative) A. phagocytophilum DNA Lyme Disease IgG Ab Lyme Disease IgM Ab COVID-19 Eval Order SARS-CoV-2 (PCR) (Negative) 02/19/21 02/19/21 02/19/21 Range/Units 09:42 08:30 08:29 WBC 3.82 L (4.8-10.8) K/uL RBC 4.69 (4.2-5.4) M/uL Hgb 14.7 (12.0-16.0) g/dL Hct 41.5 (37-47) % MCV 88.5 (80-100) fL MCH 31.3 (25-34) pg MCHC 35.4 (32-36) g/dL RDW Std Deviation 44.0 (36.4-46.3) fL RDW Coeff of Nakul 13.5 (11.5-14.5) % Plt Count 75 L (130-400) K/uL MPV 11.4 H (7.4-10.4) fL Immature Gran % (Auto) 0.0 % Neut % (Auto) 85.1 % Lymph % (Auto) 8.1 % Gilchrist % (Auto) 6.8 % Eos % (Auto) 0.0 % Baso % (Auto) 0.0 % Neut # (Auto) 3.25 (1.4-6.5) K/uL Lymph # (Auto) 0.31 L (1.2-3.4) K/uL Gilchrist # (Auto) 0.26 (0.11-0.59) K/uL Eos # (Auto) 0.00 (0-0.5) K/uL Baso # (Auto) 0.00 (0-0.2) K/uL Immature Gran # (Auto) 0.00 (0.00-0.02) K/uL Platelet Estimate Decreased L (Normal) RBC Morphology Unremarkable PT (9.0-12.0) Seconds INR (0.9-1.1) APTT (21.0-31.0) Seconds PTT Ratio Sodium (136-145) mmol/L Potassium (3.5-5.1) mmol/L Chloride (98-107) mmol/L Carbon Dioxide (21-32) mmol/L Anion Gap (3-11) BUN (7-18) mg/dl Creatinine (0.6-1.2) mg/dl Est Cr Clr Drug Dosing ml/min Est GFR ( Amer) ml/min Est GFR (Non-Af Amer) ml/min BUN/Creatinine Ratio (10-20) Glucose (70-99) mg/dl Lactate (0.4-2.0) mmol/L Calcium (8.5-10.1) mg/dl Magnesium (1.8-2.4) mg/dl Total Bilirubin (0.2-1) mg/dl AST (15-37) U/L ALT (12-78) U/L Alkaline Phosphatase (45-117) U/L Troponin I (0-0.045) ng/ml Total Protein (6.4-8.2) gm/dl Albumin (3.4-5.0) gm/dl Globulin (2.5-4.0) gm/dl Albumin/Globulin Ratio (0.9-2) Procalcitonin (0-0.5) ng/ml Urine Color Dark Yellow Urine Appearance Clear (Clear) Urine pH 6.5 (4.5-7.5) Ur Specific Home 1.026 (1.000-1.030) Urine Protein 1+ H (Negative) Urine Glucose (UA) Negative (Negative) Urine Ketones Negative (Negative) Urine Blood 1+ H (Negative) Urine Nitrite Negative (Negative) Urine Bilirubin 1+ H (Negative) Urine Urobilinogen Negative (Negative) Ur Leukocyte Esterase Negative (Negative) Urine WBC (Auto) 1-5 (0-5) /hpf Urine RBC (Auto) 10-30 H (0-4) /hpf U Hyaline Cast (Auto) 1-5 (0-5) /lpf U Epithel Cells (Auto) 10-20 H (0-5) /lpf Urine Bacteria (Auto) Negative (Negative) A. phagocytophilum DNA Lyme Disease IgG Ab Lyme Disease IgM Ab COVID-19 Eval Order SARS-CoV-2 (PCR) NEGATIVE (Negative) 02/19/21 Range/Units 08:29 WBC (4.8-10.8) K/uL RBC (4.2-5.4) M/uL Hgb (12.0-16.0) g/dL Hct (37-47) % MCV (80-100) fL MCH (25-34) pg MCHC (32-36) g/dL RDW Std Deviation (36.4-46.3) fL RDW Coeff of Nakul (11.5-14.5) % Plt Count (130-400) K/uL MPV (7.4-10.4) fL Immature Gran % (Auto) % Neut % (Auto) % Lymph % (Auto) % Gilchrist % (Auto) % Eos % (Auto) % Baso % (Auto) % Neut # (Auto) (1.4-6.5) K/uL Lymph # (Auto) (1.2-3.4) K/uL Gilchrist # (Auto) (0.11-0.59) K/uL Eos # (Auto) (0-0.5) K/uL Baso # (Auto) (0-0.2) K/uL Immature Gran # (Auto) (0.00-0.02) K/uL Platelet Estimate (Normal) RBC Morphology PT (9.0-12.0) Seconds INR (0.9-1.1) APTT (21.0-31.0) Seconds PTT Ratio Sodium (136-145) mmol/L Potassium (3.5-5.1) mmol/L Chloride (98-107) mmol/L Carbon Dioxide (21-32) mmol/L Anion Gap (3-11) BUN (7-18) mg/dl Creatinine (0.6-1.2) mg/dl Est Cr Clr Drug Dosing ml/min Est GFR ( Amer) ml/min Est GFR (Non-Af Amer) ml/min BUN/Creatinine Ratio (10-20) Glucose (70-99) mg/dl Lactate (0.4-2.0) mmol/L Calcium (8.5-10.1) mg/dl Magnesium (1.8-2.4) mg/dl Total Bilirubin (0.2-1) mg/dl AST (15-37) U/L ALT (12-78) U/L Alkaline Phosphatase (45-117) U/L Troponin I (0-0.045) ng/ml Total Protein (6.4-8.2) gm/dl Albumin (3.4-5.0) gm/dl Globulin (2.5-4.0) gm/dl Albumin/Globulin Ratio (0.9-2) Procalcitonin (0-0.5) ng/ml Urine Color Urine Appearance (Clear) Urine pH (4.5-7.5) Ur Specific Home (1.000-1.030) Urine Protein (Negative) Urine Glucose (UA) (Negative) Urine Ketones (Negative) Urine Blood (Negative) Urine Nitrite (Negative) Urine Bilirubin (Negative) Urine Urobilinogen (Negative) Ur Leukocyte Esterase (Negative) Urine WBC (Auto) (0-5) /hpf Urine RBC (Auto) (0-4) /hpf U Hyaline Cast (Auto) (0-5) /lpf U Epithel Cells (Auto) (0-5) /lpf Urine Bacteria (Auto) (Negative) A. phagocytophilum DNA Lyme Disease IgG Ab Lyme Disease IgM Ab COVID-19 Eval Order Covid19 at [facility] SARS-CoV-2 (PCR) (Negative) Diagnostic Findings Chest X-Ray 02/19/21 08:48 SINGLE VIEW CHEST CLINICAL HISTORY: Sepsis. FINDINGS: 2 AP, portable, upright chest radiographs are compared to study dated 02/13/2020. The examination is degraded by portable technique and patient rotation. There are calcified mediastinal lymph nodes. The heart is enlarged noting atherosclerotic calcification of the thoracic aorta. The pulmonary vasculature is noncongested. Chronic interstitial thickening is similar to previous. Mild atelectasis is noted in the lung bases. No airspace consolidation or large pleural effusion is identified. No pneumothorax is seen. The skeletal structures are osteopenic. The bony thorax is grossly intact. A left shoulder arthroplasty is in place. IMPRESSION: Cardiomegaly with no acute cardiopulmonary abnormality. ACT 112: Negative or not required by law. Electronically signed by: Lucius Posey M.D. 02/19/2021 10:[address] 02/19/21 08:[address] DOSE: 729.78 mGycm HISTORY: Altered mental status. TECHNIQUE: Multiaxial CT images of the head were performed without the use of intravenous contrast. Automated exposure control was utilized for this study. A dose lowering technique was utilized adhering to the principles of ALARA. Comparison: None. Findings: The paranasal sinuses and mastoid air cells are clear. The calvarium and skull base are intact. There is no mass, hematoma, midline shift, acute infarct. White matter hypodensity is nonspecific but suggestive of microvascular ischemic change. The ventricles and sulci demonstrate mild age-related involutional changes. 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 Impression: No acute intracranial abnormality. ACT 112: Negative or not required by law. Electronically signed by: Petey Quinones M.D. 02/19/2021 10:05 AM Head CTA 02/19/21 10:38 HEAD & NECK CTA HISTORY: Altered mental status TECHNIQUE: Multiaxial CT images of the head were performed following the intravenous administration of contrast to evaluate the major cerebral vessels. Multiaxial CT images of the neck were also performed following the intravenous administration of contrast to evaluate the major cervical vessels. Maximum intensity projection images were also obtained. A dose lowering technique was utilized adhering to the principles of ALARA. COMPARISON: Head CT 02/19/2021. FINDINGS: There is no mass, hematoma, midline shift, or acute infarct. Visualized intracranial internal carotid arteries and basilar artery are widely patent. There is no significant stenosis, occlusion, or aneurysm seen within the bilateral ACAs, MCAs, or radiology manager. Mild to moderate calcified plaque within the distal vertebral arteries and bilateral carotid siphons. This results in mild focal stenosis within the bilateral distal vertebral arteries. The right P1 segment is absent with the right HYDRATE CONTROL TENDER fed through the right posterior communicating artery. This is consistent with a normal variant. The major dural venous sinuses appear patent. The proximal great vessels are widely patent. There is no significant stenosis, occlusion, or dissection identified within the bilateral common carotid, internal carotid, or vertebral arteries. A 3 cm groundglass density within the left lung apex. This could represent a small focus of inflammatory/infectious change. However, [address] follow-up recommended to exclude the possibility of a low-grade neoplasm. A 1.1 cm hypodense right thyroid nodule. This does not meet CT criteria for follow-up. Mild calcified plaque within the bilateral carotid bulbs. IMPRESSION: 1. No significant stenosis, occlusion, or aneurysm within the [place]. 2. No significant stenosis, occlusion, or dissection identified within the carotid or cervical vertebral arteries. 3. Mild focal narrowing within the distal intracranial portions of the bilateral vertebral arteries due to the calcified plaque. 4. A 3 cm groundglass density within the left lung apex. This could represent a small focus of inflammatory/infectious change. However, [address] follow-up recommended to exclude the possibility of a low-grade neoplasm. ACT 112: Positive. There are findings on this exam that require communication between the performing entity and the patient following Patient Test Result Information Act ([place] Act 112) guidelines. Electronically signed by: Petey Quinones M.D. 02/19/2021 11:30 AM Neck CTA 02/19/21 10:38 HEAD & NECK CTA HISTORY: Altered mental status TECHNIQUE: Multiaxial CT images of the head were performed following the intravenous administration of contrast to evaluate the major cerebral vessels. Multiaxial CT images of the neck were also performed following the intravenous administration of contrast to evaluate the major cervical vessels. Maximum intensity projection images were also obtained. A dose lowering technique was utilized adhering to the principles of ALARA. COMPARISON: Head CT 02/19/2021. FINDINGS: There is no mass, hematoma, midline shift, or acute infarct. Visualized intracranial internal carotid arteries and basilar artery are widely patent. There is no significant stenosis, occlusion, or aneurysm seen within the bilateral ACAs, MCAs, or radiology manager. Mild to moderate calcified plaque within the distal vertebral arteries and bilateral carotid siphons. This results in mild focal stenosis within the bilateral distal vertebral arteries. The right P1 segment is absent with the right HYDRATE CONTROL TENDER fed through the right posterior communicating artery. This is consistent with a normal variant. The major dural venous sinuses appear patent. The proximal great vessels are widely patent. There is no significant stenosis, occlusion, or dissection identified within the bilateral common carotid, internal carotid, or vertebral arteries. A 3 cm groundglass density within the left lung apex. This could represent a small focus of inflammatory/infectious change. However, [address] follow-up recommended to exclude the possibility of a low-grade neoplasm. A 1.1 cm hypodense right thyroid nodule. This does not meet CT criteria for follow-up. Mild calcified plaque within the bilateral carotid bulbs. IMPRESSION: 1. No significant stenosis, occlusion, or aneurysm within the [place]. 2. No significant stenosis, occlusion, or dissection identified within the carotid or cervical vertebral arteries. 3. Mild focal narrowing within the distal intracranial portions of the bilateral vertebral arteries due to the calcified plaque. 4. A 3 cm groundglass density within the left lung apex. This could represent a small focus of inflammatory/infectious change. However, [address] follow-up recommended to exclude the possibility of a low-grade neoplasm. ACT 112: Positive. There are findings on this exam that require communication between the performing entity and the patient following Patient Test Result Information Act ([place] Act 112) guidelines. Electronically signed by: Petey Quinones M.D. 02/19/2021 11:30 AM ECG Additional Comments: ECG on 02/19/2021 at 0833 with likely sinus rhythm with biphasic appearing P waves with PACs, T wave inversions new from previous in anterolateral leads Code Status & VTE Plan Code Status Full code VTE Prophylaxis Plan VTE Prophylaxis will be ordered: Yes PG Care Time/CCT Total # of Minutes Spent Total Time Spent with Patient: Total time spent is greater than 50% in surgical coordinator rdination of care (as documented) at patient's floor/unit and/or counseling patient: Coding Level of Care Code 67864 OBS Care - Level 3 Diagnoses Acute metabolic encephalopathy G93.41 Thrombocytopenia D69.6 Leukopenia D72.819 Hypertension I10 Diffuse myofascial pain syndrome M79.18 Hyperbilirubinemia E80.6 Abnormal ECG R94.31 Lumbar radicular pain M54.16 Hyperlipidemia E78.5 Chronic back pain M54.9; G89.29 DVT prophylaxis Z29.9
--- NOTE | 2021-02-19 12:24 | Electrocardiogram Report ---
Test Reason : Blood Pressure : / mmHG Vent. Rate : 065 BPM Atrial Rate : 044 BPM P-R Int : 000 ms QRS Dur : 098 ms QT Int : 408 ms P-R-T Axes : 000 -21 200 degrees QTc Int : 424 ms Poor data quality, interpretation may be adversely affected Sinus rhythm with frequent Premature atrial complexes Abnormal ECG When compared with ECG of 13-FEB-2020 14:56, Premature atrial complexes are now Present Nonspecific T wave abnormality now evident in Inferior leads T wave inversion now evident in Anterolateral leads Confirmed by Amandeep Chamorro ([id number]) on 02/19/2021 12:23:46 PM Referred By: Confirmed By:Amandeep Chamorro
--- NOTE | 2021-02-19 14:44 | Ultrasound Report ---
LIVER AND SPLEEN ULTRASOUND HISTORY: assess for hepatosplenomegaly. COMPARISON: None. TECHNIQUE: Sonography of the liver and spleen was performed. FINDINGS: The liver is mildly enlarged, measuring 20.7 cm in maximal sagittal dimension. The spleen i s also mildly enlarged, measuring 13.1 cm in maximal sagittal dimension. No upper abdominal ascites i s noted. IMPRESSION: Mild hepatosplenomegaly. ACT 112: Negative or not required by law. Electronically signed by: Yo Adams M.D. 02/19/2021 2:43 PM
[2021-02-19] MEDS ORDERED: POLYETHYLENE (MIRALAX) 17 GM PACK PO PRN (15:18)
[2021-02-19] MEDS ORDERED: MAGNESIUM HYDROXIDE SUSP 30 ML UDC PO PRN (15:18)
[2021-02-19] MEDS ORDERED: ALUMINUM/MAGNESIUM SUSP 30 ML UDC PO PRN (15:18)
[2021-02-19] MEDS ORDERED: ACETAMINOPHEN 325 MG TAB PO PRN (15:18)
[2021-02-19] MEDS ORDERED: ONDANSETRON INJ 2 MG/ML 2 ML VIAL IV PRN (15:18)
--- NOTE | 2021-02-19 15:42 | XCELERA ---
[id number]
--- NOTE | 2021-02-19 17:50 | Magnetic Resonance Report ---
MRI OF THE BRAIN WITHOUT CONTRAST CLINICAL HISTORY: altered mental status,r/o CVA COMPARISON STUDY: Head CT and CTA of the head performed earlier today. TECHNIQUE: Utilizing a 1.5 Verenice magnet and dedicated coil, multiplanar, multiecho imaging of the bra in was performed without IV contrast. FINDINGS: This exam is moderately compromised by motion artifact. There are no foci of restricted dif fusion to suggest acute infarct. No acute intracranial hemorrhage, midline shift or mass effect is pr esent. Ventricular system is unremarkable. Basal cisterns are patent. There are no extra-axial collec tions. White matter T2 hyperintense foci suggest mild small vessel disease. No intracranial masses ar e identified on this unenhanced exam. Calvarial signal is grossly normal. IMPRESSION: Exam moderately compromised by motion artifact. No acute intracranial findings. No evide nce for acute infarct. ACT 112: Negative or not required by law. Electronically signed by: Yo Adams M.D. 02/19/2021 5:48 PM
[2021-02-19] MEDS: SODIUM CHLORIDE 0.9% 1000ML 1,000 ML IV SCH (18:06)
[2021-02-19] MEDS: DOXYCYCLINE HYCLATE 100 MG in DEXTROSE 5% 100 ML IV SCH (21:07)
[2021-02-19] MEDS: ATORVASTATIN 20 MG TAB PO SCH (21:08)
[2021-02-20 06:22] LABS: Basophils # (auto) 0.01 K/uL (0-0.2); Basophils % (auto) 0.4 %; Hematocrit (blood only) 39.7 % (37-47); Hemoglobin 13.8 g/dL (12.0-16.0); Lymphocytes # (auto) 0.31 K/uL (1.2-3.4); Lymphocytes % (auto) 13.4 %; Mean Corpuscular Hemoglobin 30.7 pg (25-34); Mean Corpuscular Hgb Conc 34.8 g/dL (32-36); Mean Corpuscular Volume 88.4 fL (80-100); Mean Platelet Volume 12.3 fL (7.4-10.4); Monocytes # (auto) 0.23 K/uL (0.11-0.59); Monocytes % (auto) 9.9 %; Neutrophils # (auto) 1.77 K/uL (1.4-6.5); Neutrophils % (auto) 76.3 %; Platelet Count 49 K/uL (130-400); RDW Coefficient of Variation 13.5 % (11.5-14.5); Red Blood Count 4.49 M/uL (4.2-5.4); White Blood Count 2.32 K/uL (4.8-10.8)
[2021-02-20 06:30] LABS: Albumin Level 3.1 gm/dl (3.4-5.0); BUN Creatinine Ratio 27.5 (10-20); Calcium 8.5 mg/dl (8.5-10.1); Est GFR (African American) 102.4 ml/min; Est GFR (Non-African American) 88.4 ml/min; Magnesium 2.1 mg/dl (1.8-2.4); Potassium 3.4 mmol/L (3.5-5.1)
[2021-02-20 06:40] LABS: Albumin Globulin Ratio 0.9 (0.9-2); Bilirubin,Total 1.5 mg/dl (0.2-1); Globulin 3.3 gm/dl (2.5-4.0); Thyroid Stimulating Hormone 0.643 uIu/ml (0.300-4.500); Total Protein 6.4 gm/dl (6.4-8.2)
--- NOTE | 2021-02-20 07:57 | Hospitalist Progress Note ---
Date of Service February 20, 2021 Assessment & Plan (1) Acute metabolic encephalopathy: Patient presents with 24 hours has confusion delirium. Reportedly febrile in EMS but not here. Does have thrombocytopenia, leukopenia, and elevated LFTs-could be consistent with anaplasmosis. CT head noncontrast negative for acute issues, CT angiogram head and neck also negative. Urinalysis negative for infection, no renal failure or electrolyte abnormalities, chest x-ray negative. Lyme disease negative-Covid negative -peripheral smear confirms anaplasmosis -continue doxycycline 100 mg IV twice daily - MRI of the brain 02/19/21 negative -Follow blood cultures -Follow anaplasmosis PCR and peripheral smear but would treat with doxycycline x10 days regardless as PCR testing will take 5 to 7 days to return -check hepatitis panel, hep b and c negative Abd US hepatosplenomegally (2) Thrombocytopenia: As above, platelets 49 secondary to anaplasmosis Anaplasmosis smear pending hepatosplenomegaly (3) Leukopenia: As above, could be secondary to viral infection versus anaplasmosis. Covid negative Follow CBC (4) Hypertension: Blood pressure here is mildly elevated Continue home lisinopril (5) Diffuse myofascial pain syndrome: Hold home NSAIDs while thrombocytopenic Hold home tramadol due to encephalopathy Hold home gabapentin due to encephalopathy (6) Hyperbilirubinemia: Bilirubin elevated at 1.69, otherwise LFTs normal secondary to anaplasmosis as above No abdominal pain or tenderness on palpation (7) Abnormal ECG: ECG with T wave inversions that are new from previous in inferolateral leads Initial troponin negative, patient denies chest pain but is also encephalopathic No history of cardiac issues -Follow serial ECG and troponin Check echocardiogram Monitor on telemetry (8) Lumbar radicular pain: Holding home gabapentin and tramadol as above for encephalopathy consider to Restart gabapentin when mental status improves to avoid withdrawal (9) Hyperlipidemia: Continue statin (10) Chronic back pain: As above (11) DVT prophylaxis: SCDs only due to thrombocytopenia for now PT/OT consultations ordered due to generalized weakness and encephalopathy Admission and Anticipated Discharge Date Admission Date: February 19, 2021 Subjective Patient is alert and oriented to me but she is slightly forgetful. Her family is at the bedside says she is much improved than when she was admitted but not quite near her baseline. She has no focal complaints or problems Review of Systems Review of Systems: Moderate distress and fatigue no headache, no visual changes no speech or swallowing issues no chest pain, pressure or palpitations no shortness of breath, cough or wheezes no abdominal pain, nausea or vomiting, diarrhea or constipation no dysuria, hematuria or frequency no focal joint pain or swelling no back pain, CVA tenderness or radicular pain no bruising, bleeding or rashes no focal signs of weakness or numbness or altered sensation no complaints of anxiety or depression.. Physical Exam Physical Exam: The patient appeared well nourished and normally developed. Vital signs as documented. Head exam is normocephalic atraumatic Neck is without JVD, thyromegaly, or carotid bruits. Lungs are clear to auscultation, no focal loss of breath sounds no findings to corroborate CT scan changes in her chest anaplasmosis can affect her lungs though Cardiac exam, Rhythm is regular.. No murmurs, rubs or gallops. Abdominal exam reveals normal bowel sounds, soft non tender, no masses Extremities are nonedematous and both pedal pulses are present Neurologic exam is alert and oriented, no focal loss of strength or sensation Skin is without bruises or rashes Psychologically is without concerns for anxiety or depression Results & Data Results & Data ([facility]) Vital Signs (Past 12 Hours) Vital Signs Temp Pulse Pulse Resp BP Pulse Ox 02/20/21 03:37 100.2 F H 54 L 17 149/68 H 94 02/19/21 23:44 54 L 02/19/21 22:12 99.9 F H 60 18 158/71 H 96 02/19/21 21:38 99.5 F 62 22 172/74 H 95 PG Care Time/CCT Total # of Minutes Spent Total Time Spent with Patient: Total time spent is greater than 50% in coordination of care (as documented) at patient's floor/unit and/or counseling patient: Coding Level of Care Code 95843 Subseq Hosp Care Lvl 3 Diagnoses Acute metabolic encephalopathy G93.41 Thrombocytopenia D69.6 Leukopenia D72.819 Leukopenia type: unspecified Hypertension I10 Diffuse myofascial pain syndrome M79.18 Hyperbilirubinemia E80.6 Abnormal ECG R94.31 Lumbar radicular pain M54.16 Hyperlipidemia E78.5 Chronic back pain M54.9; G89.29 DVT prophylaxis Z29.9 (1) Leukopenia Leukopenia type: unspecified Qualified Code(s): D72.819 - Decreased white blood cell count, unspecified
[2021-02-20] MEDS: MULTIVITAMIN TAB PO SCH (09:00)
[2021-02-20] MEDS: DOXYCYCLINE HYCLATE 100 MG in DEXTROSE 5% 100 ML IV SCH ×2 (09:00→21:35)
[2021-02-20] MEDS: lisinopril 40 MG TAB PO SCH (09:00)
[2021-02-20] MEDS: SODIUM CHLORIDE 0.9% 1000ML 1,000 ML IV SCH ×2 (09:00→23:27)
[2021-02-20] MEDS: CHOLECALCIFEROL 1,000 UNITS 25 MCG TAB PO SCH (09:00)
[2021-02-20 09:02] LABS: Anaplasmosis Smear(Rpt to DOH) Pos for Anaplasma
[2021-02-20 09:11] LABS: Hepatitis B Surf Ag Rflx Conf Neg (Neg)
[2021-02-20 09:39] LABS: Hepatitis C IgG 13Yrs+Old_Rflx Neg (Neg)
--- NOTE | 2021-02-20 15:32 | Electrocardiogram Report ---
Test Reason : Blood Pressure : / mmHG Vent. Rate : 063 BPM Atrial Rate : 063 BPM P-R Int : 138 ms QRS Dur : 092 ms QT Int : 388 ms P-R-T Axes : 076 -24 122 degrees QTc Int : 397 ms Sinus rhythm with occasional Premature ventricular complexes Nonspecific ST and T wave abnormality Abnormal ECG When compared with ECG of 19-FEB-2021 08:33, Premature ventricular complexes are now Present Premature atrial complexes are no longer Present Nonspecific T wave abnormality no longer evident in Inferior leads T wave inversion no longer evident in Anterior leads Confirmed by Amandeep Chamorro ([id number]) on 02/20/2021 3:32:11 PM Referred By: REFERRED SELF Confirmed By:Amandeep Chamorro
[2021-02-20] MEDS: ATORVASTATIN 20 MG TAB PO SCH (20:40)
[2021-02-21] MEDS: SODIUM CHLORIDE 0.9% 1000ML 1,000 ML IV SCH (00:03)
[2021-02-21 05:11] LABS: Hepatitis A Antibody IgM NON-REACTIVE (NON-REACTIVE); Hepatitis B Core Antibody IgM NON-REACTIVE (NON-REACTIVE)
[2021-02-21] MEDS: DOXYCYCLINE HYCLATE 100 MG in DEXTROSE 5% 100 ML IV SCH ×2 (09:10→20:43)
[2021-02-21] MEDS: lisinopril 40 MG TAB PO SCH (09:13)
[2021-02-21] MEDS: MULTIVITAMIN TAB PO SCH (09:13)
[2021-02-21] MEDS: CHOLECALCIFEROL 1,000 UNITS 25 MCG TAB PO SCH (09:14)
[2021-02-21] MEDS ORDERED: ENOXAPARIN INJ 40 MG/0.4 ML SYR SQ SCH (12:30)
[2021-02-21] MEDS ORDERED: OPTIRAY 320 125ml IV ONE (12:56)
--- NOTE | 2021-02-21 13:22 | CT Scan Report ---
CT ANGIOGRAM OF THE CHEST CLINICAL HISTORY: Dyspnea on exertion. COMPARISON STUDY: Chest x-ray dated 02/19/2021. TECHNIQUE: Following the IV administration of 120 cc of Optiray 320, CT angiogram of the chest was pe rformed from the upper abdomen to the thoracic inlet utilizing the pulmonary embolus protocol. Images are reviewed in the axial, sagittal, and coronal planes. 3-D MIPS images are created and assessed. I V contrast was administered without complication. A dose lowering technique was utilized adhering to the principles of ALARA. CT DOSE: 700.04 mGy.cm FINDINGS: Thyroid: Normal in size and heterogeneous in attenuation. Thoracic aorta: There is atherosclerotic calcification of the thoracic aorta, which is normal in naveed meri and demonstrates standard 3-vessel arch anatomy. No dissection is seen. Pulmonary vasculature: The main pulmonary arteries are dilated indicating pulmonary artery hypertensi on. There are no filling defects identified in main, lobar, or segmental pulmonary branches to sugges t pulmonary embolus. Heart: The heart is enlarged and without pericardial effusion. Lungs and pleural spaces: Evaluation of the lung parenchyma is degraded by motion artifact. There are trace pleural effusions with dependent atelectasis. No airspace consolidation is seen typical for pn eumonia. The trachea and central airways are clear. There is a 2.5 x 2.1 cm groundglass lesion at the left apex seen on image #238. A 0.8 cm groundglass nodule in the left upper lobe as seen on image #2 09. A 3 mm focus of pleural-based nodularity in the left upper lobe along the major fissure as seen o n image #220. There are scattered calcified granulomas. Mediastinum: There is no mediastinal lymphadenopathy. Erin: Clear. Axillae: There is no axillary lymphadenopathy. Upper abdomen: A 2.6 cm right adrenal nodule likely represents an adenoma but cannot be definitively characterized due to the presence of IV contrast. A tiny hiatal hernia is noted. Skeletal structures: The skeletal structures are osteopenic. No lytic or blastic bony lesions are see n. Spondylotic change is seen throughout the thoracic spine. A left shoulder arthroplasty is in place . Advanced arthritic changes seen in the right shoulder. IMPRESSION: 1. There is no evidence of pulmonary embolus in the main, lobar, or segmental pulmonary arteries. 2. Cardiomegaly with evidence of pulmonary artery hypertension. 3. There is no airspace consolidation typical for pneumonia. 4. Trace pleural effusions. 5. There is a 2.5 cm groundglass lesion at the left apex and an additional 0.8 cm left upper lobe merrill undglass nodule. These are pathologically indeterminant, and although these could be be on an inflamm atory basis the appearance is concerning for low-grade pulmonary neoplasm(s). A 3 month follow-up [facility] CT is recommended for reassessment. 6. Additional findings as above. ACT 112: Positive. There are findings on this exam that require communication between the performing entity and the patient following Patient Test Result Information Act ([place] Act 112) guidelines. Electronically signed by: Lucius Posey M.D. 02/21/2021 1:21 PM
--- NOTE | 2021-02-21 15:46 | Hospitalist Progress Note ---
Date of Service February 21, 2021 Assessment & Plan (1) Acute metabolic encephalopathy: Patient presents with 24 hours has confusion delirium. Reportedly febrile in EMS but not here. Does have thrombocytopenia, leukopenia, and elevated LFTs-could be consistent with anaplasmosis. CT head noncontrast negative for acute issues, CT angiogram head and neck also negative. Urinalysis negative for infection, no renal failure or electrolyte abnormalities, chest x-ray negative. Lyme disease negative-Covid negative -peripheral smear confirms anaplasmosis -continue doxycycline 100 mg IV twice daily - MRI of the brain 02/19/21 negative -Follow blood cultures negative to date -Follow anaplasmosis PCR but peripheral smear did confirm visual sightings of anaplasmosis but would treat with doxycycline -check hepatitis panel, hep b and c negative Abd US hepatosplenomegally (2) Thrombocytopenia: As above, platelets 49 secondary to anaplasmosis Anaplasmosis smear pending hepatosplenomegaly (3) Leukopenia: secondary to anaplasmosis. Covid negative Follow CBC (4) Hypertension: Blood pressure here is mildly elevated Continue home lisinopril (5) Diffuse myofascial pain syndrome: Hold home NSAIDs while thrombocytopenic Hold home tramadol due to encephalopathy Hold home gabapentin due to encephalopathy (6) Hyperbilirubinemia: Bilirubin elevated at 1.69, otherwise LFTs normal secondary to anaplasmosis as above No abdominal pain or tenderness on palpation (7) Abnormal ECG: ECG with T wave inversions that are new from previous in inferolateral leads Initial troponin negative, patient denies chest pain but is also encephalopathic No history of cardiac issues -Follow serial ECG and troponin echocardiogram shows normal LV function normal wall motion without abnormalities mild to moderate mitral regurgitation dilation of left atrium mildly elevated right heart pressures Monitor on telemetry (8) Lumbar radicular pain: Holding home gabapentin and tramadol as above for encephalopathy no persistent complaint without these medications co (9) Hyperlipidemia: Continue statin (10) Chronic back pain: As above (11) DVT prophylaxis: Will initiate Lovenox therapy if platelet count is appropriate PT/OT consultations ordered due to generalized weakness and encephalopathy Admission and Anticipated Discharge Date Admission Date: February 19, 2021 Subjective Patient is alert and oriented to me but she is slightly forgetful. She has no focal complaints or problems According to nursing staff patient became significantly dyspneic upon exertion but she was not hypoxemic. She is known to have an abnormal chest x-ray on presentation a CT angiogram was ordered without evidence of pulmonary embolism with persistent small groundglass changes at the left apex question pulmonary anaplasmosis? Review of Systems Review of Systems: Mild distress and fatigue no headache, no visual changes no speech or swallowing issues no chest pain, pressure or palpitations no shortness of breath, cough or wheezes no abdominal pain, nausea or vomiting, diarrhea or constipation no dysuria, hematuria or frequency no focal joint pain or swelling no back pain, CVA tenderness or radicular pain no bruising, bleeding or rashes no focal signs of weakness or numbness or altered sensation no complaints of anxiety or depression.. Physical Exam Physical Exam: The patient appeared well nourished and normally developed. Vital signs as documented. Head exam is normocephalic atraumatic Neck is without JVD, thyromegaly, or carotid bruits. Lungs are clear to auscultation, no focal loss of breath sounds no findings to corroborate CT scan changes in her chest anaplasmosis can affect her lungs though Cardiac exam, Rhythm is regular.. No murmurs, rubs or gallops. Abdominal exam reveals normal bowel sounds, soft non tender, no masses Extremities are nonedematous and both pedal pulses are present Neurologic exam is alert and oriented, no focal loss of strength or sensation Skin is without bruises or rashes Psychologically is without concerns for anxiety or depression Results & Data Results & Data ([facility]) Vital Signs (Past 12 Hours) Vital Signs Temp Pulse Pulse Pulse Resp BP Pulse Ox 02/21/21 12:01 97.7 F 55 L 22 166/82 H 02/21/21 08:24 98.1 F 47 L 19 143/80 H 96 02/21/21 07:51 40 L 02/21/21 03:52 98.1 F 52 L 20 140/72 97 PG Care Time/CCT Total # of Minutes Spent Total Time Spent with Patient: Total time spent is greater than 50% in coordination of care (as documented) at patient's floor/unit and/or counseling patient: Coding Level of Care Code 63740 Subseq Hosp Care Lvl 3 Diagnoses Acute metabolic encephalopathy G93.41 Thrombocytopenia D69.6 Leukopenia D72.819 Leukopenia type: unspecified Hypertension I10 Diffuse myofascial pain syndrome M79.18 Hyperbilirubinemia E80.6 Abnormal ECG R94.31 Lumbar radicular pain M54.16 Hyperlipidemia E78.5 Chronic back pain M54.9; G89.29 DVT prophylaxis Z29.9 (1) Leukopenia Leukopenia type: unspecified Qualified Code(s): D72.819 - Decreased white blood cell count, unspecified
[2021-02-21] MEDS: ATORVASTATIN 20 MG TAB PO SCH (20:43)
--- NOTE | 2021-02-22 06:34 | Electrocardiogram Report ---
Test Reason : Blood Pressure : / mmHG Vent. Rate : 050 BPM Atrial Rate : 050 BPM P-R Int : 136 ms QRS Dur : 096 ms QT Int : 422 ms P-R-T Axes : -87 -24 -55 degrees QTc Int : 384 ms Sinus bradycardia with Premature atrial complexes Nonspecific T wave abnormality Abnormal ECG When compared with ECG of 20-FEB-2021 07:51, Premature atrial complexes are now Present Confirmed by Bryan Stallings ([id number]) on 02/22/2021 6:34:15 AM Referred By: REFERRED SELF Confirmed By:Bryan Stallings
[2021-02-22 07:44] LABS: Hematocrit (blood only) 38.8 % (37-47); Hemoglobin 13.6 g/dL (12.0-16.0); Mean Corpuscular Hemoglobin 30.4 pg (25-34); Mean Corpuscular Hgb Conc 35.1 g/dL (32-36); Mean Corpuscular Volume 86.6 fL (80-100); Mean Platelet Volume 13.4 fL (7.4-10.4); Platelet Count 52 K/uL (130-400); Platelet Estimate Decreased (Normal); RDW Coefficient of Variation 13.2 % (11.5-14.5); RDW Standard Deviation 42.1 fL (36.4-46.3); Red Blood Count 4.48 M/uL (4.2-5.4); White Blood Count 3.64 K/uL (4.8-10.8)
[2021-02-22] MEDS: CHOLECALCIFEROL 1,000 UNITS 25 MCG TAB PO SCH (08:10)
[2021-02-22] MEDS: lisinopril 40 MG TAB PO SCH (08:10)
[2021-02-22] MEDS: MULTIVITAMIN TAB PO SCH (08:10)
[2021-02-22] MEDS: DOXYCYCLINE HYCLATE 100 MG in DEXTROSE 5% 100 ML IV SCH (08:13)
[2021-02-22] MEDS ORDERED: CONSULT PHARMACY STA (09:20)
[2021-02-22] MEDS ORDERED: DOXYCYCLINE HOME PACK 100 MG/CAP PO ONE (09:45)
--- NOTE | 2021-02-22 15:51 | Discharge Summary ---
Date of Service February 22, 2021 Admission HPI Per Admitting Provider This patient is an 81-year-old female with a history of chronic back pain with lumbar spinal stenosis, hyperlipidemia, HTN, prediabetes, diffuse myofascial pain syndrome, osteoarthritis, who presents to the ER with increased confusion that started yesterday. Her daughter reports that 2 days ago on her birthday she was totally normal herself and then her called the daughter yesterday and said that the patient was just not quite acting right. This morning she was very confused and had some urinary incontinence. EMS was called and EMS reported that the patient had a fever however was afebrile on arrival in the ER. No known sick contacts. When I saw the patient, she did not know why she was in the hospital. She denied headache or fevers or chills or sweats, denied chest pain or shortness of breath, denies nausea or vomiting, denies abdominal pain or diarrhea. She did admit that she felt tired but she was not able to tell me where she was or the date or time. Her daughter reports that normally she is extremely "sharp" and that her current mental status is nothing like her baseline. The patient denies any recent tick bites but daughter reports that the patient is always out in her garden working and [place]. She had no focal neuro deficits on arrival and had a negative CT noncontrast of the head as well as CT angiogram head and neck. Her urinalysis was negative, chest x-ray negative. On labs she was found though to have leukopenia, thrombocytopenia, and elevated bilirubin. Anaplasmosis was pending at the time of admission. Covid-19 was negative, troponin was negative, procalcitonin 0.24, lactate 1.4. She was given IV Rocephin and IV fluids in the ER. I also recommended doxycycline. Principal Diagnosis anaplasmosis left upper lobe lung lesion Discharge Exam The patient appeared well Vital signs as documented. Lungs are clear to auscultation and appear unlabored Cardiac exam, Rhythm is regular.. No murmurs, rubs or gallops. Abdominal exam reveals normal bowel sounds, soft non tender, no masses. particularly no luq tenderness Extremities are nonedematous and both pedal pulses are normal. Neurologic exam is alert and oriented, no focal loss of strength or sensation Skin is without bruises or rashes Psychologically is without concerns for anxiety or depression. Discharge Data Allergies Allergy/AdvReac Type Severity Reaction Status Date / Time cyclobenzaprine AdvReac Mild does not Verified 02/19/21 10:06 feel good when taking Consultations 02/19/21 11:53 ED Decision to Admit Stat 02/19/21 19:59 Consult Lung Nodule Program Routine Ordered Studies 02/19/21 08:48 CT head/brain wo con Stat 02/19/21 10:38 CT angio head w con Stat CT angio neck with con Stat 02/19/21 12:46 MR brain wo con Urgent 02/19/21 13:45 US abdomen limited Routine 02/21/21 12:23 CT angio chest PE protocol Urgent Hospital Course (1) Acute metabolic encephalopathy: Patient presents with 24 hours has confusion delirium. Reportedly febrile in EMS but not here. Does have thrombocytopenia, leukopenia, and elevated LFTs-could be consistent with anaplasmosis. CT head noncontrast negative for acute issues, CT angiogram head and neck also negative. Urinalysis negative for infection, no renal failure or electrolyte abnormalities, chest x-ray negative. Lyme disease negative-Covid negative -peripheral smear confirms anaplasmosis -continue doxycycline 100 mg po twice daily will complete 14 days, given meds for home due to pharmacy closing - MRI of the brain 02/19/21 negative -Follow blood cultures negative to date -Follow anaplasmosis PCR but peripheral smear did confirm visual sightings of anaplasmosis but would treat with doxycycline -check hepatitis panel, hep b and c negative Abd US hepatosplenomegally, educated with low fat diet (2) Thrombocytopenia: As above, platelets 52 secondary to anaplasmosis Anaplasmosis smear pending hepatosplenomegaly (3) Leukopenia: secondary to anaplasmosis. Covid negative (4) Hypertension: Blood pressure here is mildly elevated Continue home lisinopril (5) Diffuse myofascial pain syndrome: gabapentin and tramadol for pain as needed (6) Hyperbilirubinemia: Bilirubin elevated at 1.9, otherwise LFTs normal, did trend downward secondary to anaplasmosis as above No abdominal pain or tenderness on palpation (7) Abnormal ECG: ECG with T wave inversions that are new from previous in inferolateral leads Initial troponin negative, patient denies chest pain but is also encephalopathic No history of cardiac issues -Follow serial ECG and troponin echocardiogram shows normal LV function normal wall motion without abnormalities mild to moderate mitral regurgitation dilation of left atrium mildly elevated right heart pressures Monitor on telemetry (8) Lumbar radicular pain: gabapentin and tramadol (9) Hyperlipidemia: Continue statin (10) Chronic back pain: As above Total Time Total Time Spent Total Time Spent (In Minutes): It required greater than 30 minutes to prepare this patient for discharge Discharge Plan Discharge Items Patient Disposition: Home - Home Health Services Reason For Visit: ENCEPHALOPATHY,ANAPLASMOSIS Discharge Diagnosis: anaplasmosis changes on CT will need follow up consider testing for sleep apnea Activity: Per Instructions section Non-emergency contact: Primary Care Provider Call non-emergency contact if: you have any medication questions, your symptoms worsen and you have a fever Follow-up/Referrals: Alyson Kingsley MD [Primary Care Provider] - Diet: Regular Addtl Attending Provider Instructions: Please complete all of your antibiotics When you sleep your heart rate goes slow and you have some snoring, please discuss with your primary care doctor about getting a sleep study or wearing an at home heart monitor for a bit. there was an area on your left upper lung that will need to have follow up in a few month, the hospital should call to set up, if not have your primary care doctor Please do not take your celebrex until you are done with your doxycycline antibiotic Anaplasmosis is a disease caused by the bacterium Anaplasma phagocytophilum. These bacteria are spread to people by tick bites primarily from the blacklegged tick (Ixodes scapularis) and the western blacklegged tick (Ixodes pacificus). People with anaplasmosis will often have fever, headache, chills, and muscle aches. Doxycycline is the drug of choice for adults and children of all ages with anaplasmosis. Pending Studies at Discharge: No Stand-Alone Forms: [facility] [employer], Smoking Cessation Medications and DC Order Prescriptions: New doxycycline hyclate 100 mg capsule 100 mg PO BID 10 Days Qty: 20 RF: 0 Continued gabapentin 400 mg capsule 400 mg PO TID Qty: 90 RF: 2 atorvastatin 20 mg tablet 20 mg PO QPM Qty: 90 RF: 3 lisinopril 40 mg tablet 40 mg PO QAM Qty: 90 RF: 3 tramadol 50 mg tablet 50 - 100 mg PO TID PRN (Reason: Pain) Qty: 270 RF: 0 multivitamin Tablet 1 tab PO QAM RF: 0 cholecalciferol (vitamin D3) [Vitamin D3] 1,000 unit Capsule 1,000 unit PO QAM RF: 0 omega 3-[id number]-fish oil [Fish Oil] 1,000 mg (120 mg-180 mg) Capsule 1 cap PO QAM RF: 0 polyethylene glycol 3350 [Miralax] 17 gram powder in packet 8.5 g PO QPM RF: 0 aspirin 81 mg Tablet,Delayed Release (Dr/Ec) 81 mg PO Q OTHER DAY RF: 0 celecoxib 100 mg capsule 100 mg PO BID RF: 0 Discharge Orders: Discharge Order (Routine); Ordered 02/22/21 Ordered By: Thien Blanco Admission Data Admit Date/Time: 02/19/21 12:46 Attending Provider: Thien Blanco Admit Provider: Yoon Álvarez Primary Care Provider: Alyson Kingsley Other Providers: Yoon Álvarez Other Interventions: Discharge Summary Assessment (RN) Last Done: 02/22/21 09:35 Coding Level of Care Code D/C Day Management >30 mins Diagnoses Acute metabolic encephalopathy G93.41 Thrombocytopenia D69.6 Leukopenia D72.819 Leukopenia type: unspecified Hypertension I10 Diffuse myofascial pain syndrome M79.18 Hyperbilirubinemia E80.6 Abnormal ECG R94.31 Lumbar radicular pain M54.16 Hyperlipidemia E78.5 Chronic back pain M54.9; G89.29
== END 2021-02-22 12:01 | disposition home health service (06) ==
LOC: ED 08:21 → 2S 08:21 → SUATTDRO 12:46 → 2S 14:54

== ENCOUNTER 2022-05-07 19:28 | Observation (INO) ==
[2022-05-07] MEDS ORDERED: SODIUM CHLORIDE 0.9% 1000ML 1,000 ML IV SCH (19:30)
--- NOTE | 2022-05-07 19:59 | XRay Report ---
XR chest 1V portable HISTORY: 82 years-old Female weakness acute weakness COMPARISON: Chest CT 04/23/2021, chest radiograph 04/10/2021 TECHNIQUE: Portable AP view of the chest FINDINGS: Cardiac silhouette is enlarged. Atherosclerosis of the aorta. Suggested pulmonary arterial hypertensi on. No pneumothorax, pleural effusion, airspace consolidation or overt pulmonary edema. Degenerative changes of the right shoulder and spine. Left shoulder arthroplasty. IMPRESSION: Cardiomegaly without acute process. ACT 112: Negative or not required by law. The above report was generated using voice recognition software. It may contain grammatical, syntax o r spelling errors. Electronically signed by: Dante Cueva M.D. 05/07/2022 7:58 PM
[2022-05-07 20:03] LABS: Basophils # (auto) 0.03 K/uL (0-0.2); Basophils % (auto) 0.4 %; Hematocrit (blood only) 47.7 % (34.1-44.9); Immature Granulocytes # (auto) 0.02 K/uL (0.00-0.02); Immature Granulocytes % (auto) 0.3 %; Lymphocytes # (auto) 0.35 K/uL (1.2-3.4); Lymphocytes % (auto) 5.1 %; Mean Corpuscular Hemoglobin 30.2 pg (25.0-34.0); Mean Corpuscular Hgb Conc 33.5 g/dL (32.0-36.0); Mean Platelet Volume 11.9 fL (9.4-12.3); Monocytes % (auto) 4.4 %; Neutrophils # (auto) 6.16 K/uL (1.4-6.5); Neutrophils % (auto) 89.8 %; Platelet Count 135 K/uL (130-400); RDW Standard Deviation 42.7 fL (36.4-46.3); White Blood Count 6.86 K/ul (4.8-10.8)
[2022-05-07] MEDS ORDERED: ONDANSETRON INJ 2 MG/ML 2 ML VIAL IV STA (20:06)
[2022-05-07] MEDS ORDERED: SODIUM CHLORIDE 0.9% 1000ML 500 ML IV ONE (20:07)
--- NOTE | 2022-05-07 20:14 | Emergency Department Note ---
Impression & Plan Acute electrocardiogram changes, Nausea & vomiting, Diarrhea ED Provider Note INFORMANT: Patient ED PROVIDER(S): Adam Ortez MD CHIEF COMPLAINT: Vomiting PLAN: Disposition: Admitted Condition: Good Outpatient prescription management: none Referral: None MEDICAL DECISION MAKING: Patient presented with nausea and vomiting. She had a work-up initiated. She noted some loose stool. She had no travel or exposure history. COVID testing was performed and negative. The patient had an ECG performed and this revealed concerning changes. Patient's CBC, magnesium, troponin, TSH and chemistry panels were unremarkable. Patient did have a minimal elevation of her bilirubin but this has been there in the past. Urinalysis showed some white blood cells but many epithelial cells. Patient had no urinary symptoms. Patient was hydrated and was given Zofran. Due to the acute ECG changes further management in the hospital was deemed appropriate. I discussed this with the patient and . They were in agreement. Consultation was made with Dr. Sean Stewart of the [facility] service. Patient was evaluated in the ER for further management. Triage Nursing notes reviewed and agree them. Vital Signs: reviewed and remarkable for no significant abnormalities Differential diagnosis: Etiologies such as gastroenteritis, food borne illness, infections, appendicitis, diverticulitis, inflammatory bowel disease, GI bleed, biliary pathology, as well as others were entertained. Diagnostics interpreted by me: ECG: Twelve-lead ECG reveals sinus rhythm with premature supraventricular contractions at 62 bpm. There is lateral anterior T wave inversions present. Left axis deviation and bundle branch block. When compared to April 10, 2021 lateral and anterior changes are new. Cardiac Monitoring:Cardiac monitoring ordered by me: The patient was placed on continuous cardiac monitoring and observed. It revealed a normal sinus rhythm at 64 beats per minute without evidence of dysrhythmia. Imaging studies: CT scan as noted below. No acute findings. HPI: The patient is a 82year old female who presents to the Emergency Room with complaints of nausea and vomiting. This started today and is a new problem for the patient. The patient also notes the following associated symptoms, loose stool. The patient has found no relieving factors. Current pain is rated as 0/10. Patient denies any sick contacts. No recent travel. Did not eat anything unusual. No prior history of the same. Patient has chronic back pain but nothing new. She feels generally weak. Pt denies LOC, headache, fevers, chills, diaphoresis, visual changes, neck pain, chest pain, breathing difficulties, abdominal pain, new back pain, melena, hematochezia, urinary symptoms, numbness, focal weakness, lymphadenopathy, rash, or other complaints. ROS: See above HPI for pertinent positives & negatives. A total of 10 systems reviewed and were otherwise negative. PAST MEDICAL HISTORY:See Below , hypertension PAST SURGICAL HISTORY:See Below, FAMILY HISTORY:See Below SOCIAL HISTORY:See Below, HOME MEDICATIONS:See Below ALLERGIES:See Below VITALS:See Below PHYSICAL EXAMINATION: GENERAL: Awake, alert, uncomfortable-appearing, in no distress HENT: Normocephalic, atraumatic. Oropharynx unremarkable. EYES: Normal conjunctiva. Sclera non-icteric. NECK: Inspection normal. Non-tender. Supple. No nuchal rigidity. FROM. No masses. RESPIRATORY: Clear to auscultation. No wheezes. No rales. Normal respiratory effort. CARDIAC: Normal rate. Normal rhythm. No murmurs. No rubs. Extremities warm and well perfused. Pulses equal. No JVD. GI: Soft, non-distended. No tenderness to palpation. No rebound or guarding. No masses. RECTAL: Deferred. MUSCULOSKELETAL: Atraumatic. Chest examination reveals no tenderness. The back is symmetrical on inspection without obvious abnormality. There is no CVA tenderness to palpation. No joint edema. LOWER EXTREMITIES: Calves are equal size bilaterally and non-tender. No edema. No discoloration. NEURO: Normal sensorium. No sensory or motor deficits noted. SKIN: No rash or jaundice noted. Adam Ortez MD Past Med/Surg History Medical History Chronic back pain Diffuse myofascial pain syndrome Hyperglycemia Mild and stable Hyperlipidemia Hypertension Lumbar radicular pain Spinal stenosis Surgical History History of colonoscopy History of dilatation and curettage Removed uterine polyp History of left hip replacement (~02/2020) History of tooth extraction History of total shoulder replacement LEFT Family History Mother Stroke Father Cancer Denies family history of Ovarian cancer Prostate cancer Myocardial infarction Breast cancer Colorectal cancer Social History Smoking Status: Never smoker Second Hand Exposure: No; Hx Alcohol Use: No Hx Substance Use: No Preferred Language: Indonesian Communication Ability: Unable Visual Impairment: No Limitations Hearing Ability: Normal Choir Leader Required: No Beliefs That Will Affect Care: None marital status: Current Living Situation: Spouse current occupational status: employed and retired Feels Safe at Home: Yes Assistive Devices: Glasses Allergies Allergies Allergy/AdvReac Type Severity Reaction Status Date / Time cyclobenzaprine AdvReac Mild does not Verified 05/07/22 20:12 feel good when taking Home Meds Home Medications Medication Instructions Recorded Confirmed cholecalciferol (vitamin D3) 25 1,000 unit PO QAM 05/31/18 05/07/22 mcg (1,000 unit) capsule (Vitamin D3) multivitamin 1 tab PO QAM 05/31/18 05/07/22 omega 5-ayj-hit-fish oil 1,000 mg 1 cap PO QAM 05/31/18 05/07/22 (120 mg-180 mg) capsule (Fish Oil) polyethylene glycol 3350 17 gram 8.5 g PO QPM 01/21/20 05/07/22 oral powder packet (Miralax) aspirin 81 mg tablet,delayed 81 mg PO Q OTHER DAY 02/19/21 05/07/22 release Previous Rx's Medication Instructions Recorded atorvastatin 20 mg tablet 20 mg PO QPM #90 tabs 12/17/21 lisinopril 40 mg tablet 40 mg PO QAM #90 tabs 01/15/22 gabapentin 400 mg capsule 400 mg PO TID #90 caps 03/25/22 tramadol 50 mg tablet 50 - 100 mg PO TID PRN Pain #270 04/13/22 tabs Results & Data (ED) Vital Signs Vital Signs - 24 hr 05/07/22 19:42 05/07/22 19:53 05/07/22 20:01 Temperature 37.3 C Temperature Source Oral Pulse Rate 63 63 Pulse Rate [Right Finger] 66 Pulse Rhythm Regular Pulse Rhythm [Right Finger] Pulse Strength [Right Finger] Respiratory Rate 20 18 22 Respiratory Effort / Characteristics Respiratory Depth Respiratory Pattern Blood Pressure 173/92 H Blood Pressure [Right Arm] 173/92 H Blood Pressure Mean 119 Blood Pressure Mean [Right Arm] 119 Blood Pressure Position [Right Arm] Pulse Oximetry 95 98 95 Oxygen Delivery Method Room Air Room Air Room Air Sepsis Recent Fever Within 48 Hours Yes Sepsis New/Unexplained Change in Mental Status No Sepsis Action Taken by Nursing No Action Required 05/07/22 22:52 05/08/22 00:00 Temperature Temperature Source Pulse Rate Pulse Rate [Right Finger] 64 66 Pulse Rhythm Pulse Rhythm [Right Finger] Regular Pulse Strength [Right Finger] Normal Respiratory Rate 16 18 Respiratory Effort / Characteristics Non-Labored Non-Labored Spontaneous Respiratory Depth Normal Normal Respiratory Pattern Regular Blood Pressure Blood Pressure [Right Arm] 140/80 Blood Pressure Mean Blood Pressure Mean [Right Arm] 100 Blood Pressure Position [Right Arm] Lying Pulse Oximetry 94 96 Oxygen Delivery Method Room Air Room Air Sepsis Recent Fever Within 48 Hours Sepsis New/Unexplained Change in Mental Status Sepsis Action Taken by Nursing Laboratory Data Result diagrams: 05/07/22 19:45 05/07/22 19:45 Lab Results 05/07/22 05/07/22 05/07/22 Range/Units 19:45 19:45 19:45 WBC 6.86 (4.8-10.8) K/ul RBC 5.30 H (3.93-5.22) M/uL Hgb 16.0 (12.0-16.0) g/dl Hct 47.7 H (34.1-44.9) % MCV 90.0 (80.0-100.0) fL MCH 30.2 (25.0-34.0) pg MCHC 33.5 (32.0-36.0) g/dL RDW Std Deviation 42.7 (36.4-46.3) fL RDW Coeff of Nakul 13.0 (11.5-14.5) % Plt Count 135 (130-400) K/uL MPV 11.9 (9.4-12.3) fL Immature Gran % (Auto) 0.3 % Neut % (Auto) 89.8 % Lymph % (Auto) 5.1 % Door % (Auto) 4.4 % Eos % (Auto) 0.0 % Baso % (Auto) 0.4 % Neut # (Auto) 6.16 (1.4-6.5) K/uL Lymph # (Auto) 0.35 L (1.2-3.4) K/uL Door # (Auto) 0.30 (0.24-0.82) K/uL Eos # (Auto) 0.00 (0-0.50) K/uL Baso # (Auto) 0.03 (0-0.2) K/uL Immature Gran # (Auto) 0.02 (0.00-0.02) K/uL Sodium 134 L (136-145) mmol/L Potassium 3.9 (3.5-5.1) mmol/L Chloride 100 (98-107) mmol/L Carbon Dioxide 24 (21-32) mmol/L Anion Gap 10 (3-11) BUN 16 (6-23) mg/dl Creatinine 0.61 (0.6-1.2) mg/dl Est Cr Clr Drug Dosing 90.1 ml/min Est GFR ( Amer) 96.5 ml/min Est GFR (Non-Af Amer) 83.2 ml/min BUN/Creatinine Ratio 26.2 H (10-20) Glucose 141 H (70-99(Fasting)) mg/dl Calcium 9.5 (8.5-10.1) mg/dl Magnesium 1.8 (1.7-2.4) mg/dl Total Bilirubin 2.1 H (0.2-1.0) mg/dl AST 10 L (13-39) U/L ALT 11 (7-52) U/L Alkaline Phosphatase 53 (34-104) U/L Troponin I High Sens 9.2 (0-14) pg/ml Total Protein 7.2 (6.0-8.3) gm/dl Albumin 4.4 (3.4-5.0) gm/dl Globulin 2.8 (2.5-4.0) gm/dl Albumin/Globulin Ratio 1.6 (0.9-2) TSH 0.971 (0.300-4.500) uIu/ml Urine Color Urine Appearance (Clear) Urine pH (4.5-7.5) Ur Specific [place] (1.000-1.030) Urine Protein (Negative) Urine Glucose (UA) (Negative) Urine Ketones (Negative) Urine Blood (Negative) Urine Nitrite (Negative) Urine Bilirubin (Negative) Urine Urobilinogen (Negative) Ur Leukocyte Esterase (Negative) Urine WBC (Auto) (0-5) /hpf Urine RBC (Auto) (0-4) /hpf U Hyaline Cast (Auto) (0-5) /lpf U Epithel Cells (Auto) (0-5) /lpf Urine Bacteria (Auto) (Negative) SARS-CoV-2, RNA, NAAT (NEGATIVE) 05/07/22 05/07/22 Range/Units 19:47 21:25 WBC (4.8-10.8) K/ul RBC (3.93-5.22) M/uL Hgb (12.0-16.0) g/dl Hct (34.1-44.9) % MCV (80.0-100.0) fL MCH (25.0-34.0) pg MCHC (32.0-36.0) g/dL RDW Std Deviation (36.4-46.3) fL RDW Coeff of Nakul (11.5-14.5) % Plt Count (130-400) K/uL MPV (9.4-12.3) fL Immature Gran % (Auto) % Neut % (Auto) % Lymph % (Auto) % Door % (Auto) % Eos % (Auto) % Baso % (Auto) % Neut # (Auto) (1.4-6.5) K/uL Lymph # (Auto) (1.2-3.4) K/uL Door # (Auto) (0.24-0.82) K/uL Eos # (Auto) (0-0.50) K/uL Baso # (Auto) (0-0.2) K/uL Immature Gran # (Auto) (0.00-0.02) K/uL Sodium (136-145) mmol/L Potassium (3.5-5.1) mmol/L Chloride (98-107) mmol/L Carbon Dioxide (21-32) mmol/L Anion Gap (3-11) BUN (6-23) mg/dl Creatinine (0.6-1.2) mg/dl Est Cr Clr Drug Dosing ml/min Est GFR ( Amer) ml/min Est GFR (Non-Af Amer) ml/min BUN/Creatinine Ratio (10-20) Glucose (70-99(Fasting)) mg/dl Calcium (8.5-10.1) mg/dl Magnesium (1.7-2.4) mg/dl Total Bilirubin (0.2-1.0) mg/dl AST (13-39) U/L ALT (7-52) U/L Alkaline Phosphatase (34-104) U/L Troponin I High Sens (0-14) pg/ml Total Protein (6.0-8.3) gm/dl Albumin (3.4-5.0) gm/dl Globulin (2.5-4.0) gm/dl Albumin/Globulin Ratio (0.9-2) TSH (0.300-4.500) uIu/ml Urine Color Yellow Urine Appearance Clear (Clear) Urine pH 6.0 (4.5-7.5) Ur Specific [place] 1.028 (1.000-1.030) Urine Protein Negative (Negative) Urine Glucose (UA) Negative (Negative) Urine Ketones Trace H (Negative) Urine Blood Negative (Negative) Urine Nitrite Negative (Negative) Urine Bilirubin Negative (Negative) Urine Urobilinogen Negative (Negative) Ur Leukocyte Esterase 2+ H (Negative) Urine WBC (Auto) >30 H (0-5) /hpf Urine RBC (Auto) 5-10 H (0-4) /hpf U Hyaline Cast (Auto) 10-30 H (0-5) /lpf U Epithel Cells (Auto) >30 H (0-5) /lpf Urine Bacteria (Auto) Negative (Negative) SARS-CoV-2, RNA, NAAT NEGATIVE (NEGATIVE) Administered Medications Sodium Chloride (Nss 1000ml) 1,000 mls @ 125 mls/hr IV .Q8H SULTA[place] Stop: 05/08/22 03:29 Last Admin: 05/07/22 20:02 Dose: 125 mls/hr Documented By: ENE Discontinued Medications Sodium Chloride (Nss 1000ml) 500 mls @ 999 mls/hr IV .Q31M ONE Stop: 05/07/22 20:37 Last Infusion: 05/07/22 20:40 Dose: 0 mls/hr Documented By: Admin: 05/07/22 20:09 Dose: 999 mls/hr Documented By: ENE Ondansetron HCl (Ondansetron Inj 2 Mg/Ml 2 Ml Vial) 4 mg IV NOW STA Stop: 05/07/22 20:07 Last Admin: 05/07/22 20:09 Dose: 4 mg Documented By: ENE Imaging Data Radiologist's Impression: Chest X-Ray 05/07/22 19:30 XR chest 1V portable HISTORY: 82 years-old Female weakness acute weakness COMPARISON: Chest CT 04/23/2021, chest radiograph 04/10/2021 TECHNIQUE: Portable AP view of the chest FINDINGS: Cardiac silhouette is enlarged. Atherosclerosis of the aorta. Suggested pulmonary arterial hypertension. No pneumothorax, pleural effusion, airspace consolidation or overt pulmonary edema. Degenerative changes of the right shoulder and spine. Left shoulder arthroplasty. IMPRESSION: Cardiomegaly without acute process. ACT 112: Negative or not required by law. The above report was generated using voice recognition software. It may contain grammatical, syntax or spelling errors. Electronically signed by: Dante Cueva M.D. 05/07/2022 7:58 PM Abdomen/Pelvis CT 05/07/22 20:29 CT abd pelvis wo con CLINICAL HISTORY: vomiting TECHNIQUE: Helical axial images of the abdomen and pelvis were obtained. Automated dose lowering techniques and/or adjustment according to patient size were utilized for this exam. This exam was performed without intravenous contrast. CT DOSE: 1169.11 mGy.cm COMPARISON: None available at the time of this dictation. FINDINGS: Lower chest: No acute abnormality Liver: Unremarkable. No focal lesions are seen. Gallbladder and biliary tree: No calcified gallstones. Normal caliber wall. No intra- or extrahepatic biliary ductal dilation. Pancreas: Unremarkable, no focal lesions. Spleen: Unremarkable. 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 Kidneys and ureters: Perinephric stranding is noted bilaterally. Bladder: Unremarkable. Reproductive organs: Unremarkable. Bowel: Diverticulosis is seen without evidence of diverticulitis. The appendix is normal. There is a small hiatal hernia. No small bowel obstruction is seen. There is gaseous distention of the sigmoid colon with a moderate amount of stool in the rectum. Lymph nodes Retroperitoneal: Unremarkable. Pelvic: Unremarkable. Mesenteric: Unremarkable. Peritoneum: Normal. Vessels: Atherosclerotic calcifications are seen. 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 Abdominal wall: Unremarkable. Bones: Degenerative changes in the visualized spine. S-shaped scoliosis is seen. IMPRESSION: 1. No evidence of bowel obstruction or other acute abnormality. There is gas and a moderate amount of stool in the rectum. 2. Diverticulosis without diverticulitis. 3. There is a small hiatal hernia. 4. Additional findings as above. ACT 112: Negative or not required by law. Electronically signed by: Jewel Farrar M.D. 05/07/2022 10:27 PM Discharge Plan Visit Data Chief Complaint: Nausea Stated Complaint: NAUSEA/VOMITING/FREQUENT BM/DIZZINESS ED Provider: Adam Ortez Discharge Problem: Acute electrocardiogram changes, Nausea & vomiting, Diarrhea Forms Stand Alone Forms: [facility] Prescriptions Prescriptions: No Action atorvastatin 20 mg tablet 20 mg PO QPM Qty: 90 3RF lisinopril 40 mg tablet 40 mg PO QAM Qty: 90 3RF gabapentin 400 mg capsule 400 mg PO TID Qty: 90 6RF tramadol 50 mg tablet 50 - 100 mg PO TID PRN (Reason: Pain) Qty: 270 0RF Rx Instructions: PDMP searched, last filled on 02/15/2022 for a 45 day supply. Okay to fill multivitamin Tablet 1 tab PO QAM cholecalciferol (vitamin D3) [Vitamin D3] 1,000 unit Capsule 1,000 unit PO QAM omega 7-izr-oer-fish oil [Fish Oil] 1,000 mg (120 mg-180 mg) Capsule 1 cap PO QAM polyethylene glycol 3350 [Miralax] 17 gram powder in packet 8.5 g PO QPM aspirin 81 mg Tablet,Delayed Release (Dr/Ec) 81 mg PO Q OTHER DAY Referrals Referrals: Alyson Kingsley MD [Primary Care Provider] -
[2022-05-07 20:33] LABS: Troponin I High Sensitivity 9.2 pg/ml (0-14)
[2022-05-07 20:40] LABS: Albumin Globulin Ratio 1.6 (0.9-2); Albumin Level 4.4 gm/dl (3.4-5.0); BUN Creatinine Ratio 26.2 (10-20); Bilirubin,Total 2.1 mg/dl (0.2-1.0); Calcium 9.5 mg/dl (8.5-10.1); Creatinine Clr Calc Pharmacy 90.1 ml/min; Est GFR (African American) 96.5 ml/min; Est GFR (Non-African American) 83.2 ml/min; Globulin 2.8 gm/dl (2.5-4.0); Magnesium 1.8 mg/dl (1.7-2.4); Potassium 3.9 mmol/L (3.5-5.1); Total Protein 7.2 gm/dl (6.0-8.3)
[2022-05-07 22:18] LABS: Appearance Urine Clear (Clear); Bacteria Urine Automated Negative (Negative); Bilirubin Urine Negative (Negative); Blood Urine Negative (Negative); Color Urine Yellow; Epithelial Cell Urine Auto >30 /lpf (0-5); Glucose Urine UA Negative (Negative); Ketones Urine Trace (Negative); Leukocyte Esterase Urine 2+ (Negative); Nitrite Urine Negative (Negative); Protein Urine Negative (Negative); Specific Gravity Urine 1.028 (1.000-1.030); Urobilinogen Urine Negative (Negative); WBC Urine Automated >30 /hpf (0-5)
--- NOTE | 2022-05-07 22:29 | CT Scan Report ---
CT abd pelvis wo con CLINICAL HISTORY: vomiting TECHNIQUE: Helical axial images of the abdomen and pelvis were obtained. Automated dose lowering tech niques and/or adjustment according to patient size were utilized for this exam. This exam was perfor med without intravenous contrast. CT DOSE: 1169.11 mGy.cm COMPARISON: None available at the time of this dictation. FINDINGS: Lower chest: No acute abnormality Liver: Unremarkable. No focal lesions are seen. Gallbladder and biliary tree: No calcified gallstones. Normal caliber wall. No intra- or extrahepatic biliary ductal dilation. Pancreas: Unremarkable, no focal lesions. Spleen: Unremarkable. 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 Kidneys and ureters: Perinephric stranding is noted bilaterally. Bladder: Unremarkable. Reproductive organs: Unremarkable. Bowel: Diverticulosis is seen without evidence of diverticulitis. The appendix is normal. There is a small hiatal hernia. No small bowel obstruction is seen. There is gaseous distention of the sigmoid c olon with a moderate amount of stool in the rectum. Lymph nodes Retroperitoneal: Unremarkable. Pelvic: Unremarkable. Mesenteric: Unremarkable. Peritoneum: Normal. Vessels: Atherosclerotic calcifications are seen. There is aneurysmal dilation of the distal common l eft iliac artery measuring 19 mm. Abdominal wall: Unremarkable. Bones: Degenerative changes in the visualized spine. S-shaped scoliosis is seen. IMPRESSION: 1. No evidence of bowel obstruction or other acute abnormality. There is gas and a moderate amount o f stool in the rectum. 2. Diverticulosis without diverticulitis. 3. There is a small hiatal hernia. 4. Additional findings as above. ACT 112: Negative or not required by law. Electronically signed by: Jewel Farrar M.D. 05/07/2022 10:27 PM
--- NOTE | 2022-05-07 23:56 | History & Physical Report ---
Date of Service May 07, 2022 Assessment & Plan (1) Acute electrocardiogram changes: Plan: 82 year old female w/ PMHx of chronic low back pains who presents w/ new nausea and vomiting x 1 day and new anterolateral T wave inversions. - trend hs trop. neg x1 - echo in AM - consult cardiology (2) Nausea & vomiting: Plan: - GI Biofire ordered - considered gastroenteritis vs CAD equivalent vs other - subsided at the moment - Miralax BID for now; moderate stool on CT (3) Hypertension: Plan: - continue home regimen (4) Hyperlipidemia: Plan: - continue home regimen (5) Iliac artery aneurysm: Plan: - per CT, aneurysmal dilation of the distal common left iliac artery measuring 19 mm - follow as outpatient Plan diet Lovenox PCU full code History of Present Illness Chief Complaint: ecg changes, nausea, vomiting Primary Care Provider: Alyson Kingsley MD 82 year old female w/ PMHx of chronic low back pains who presents w/ new nausea and vomiting x 1 day. She had 5-6 episodes of emesis of food and clear liquid this morning, a few hours after waking up. Her symptoms then subsided, ut returned milder in the afternoon. Her family then brought her to the ED since patient normally does not have emesis. Patient denies hx of [place] or stroke. Currently, she is not nauseated. She has mild headache. She denies other symptoms such as fever/chills, chest pain, shortness of breath. w/o GI symptoms. ED course: NSS x 1.5L ecg reviewed: new anterolateral lead T wave inversion when compared to last year. Allergies Allergy/AdvReac Type Severity Reaction Status Date / Time cyclobenzaprine AdvReac Mild does not Verified 05/07/22 20:12 feel good when taking Home Medications Medication Instructions Recorded Confirmed Type cholecalciferol (vitamin D3) 25 1,000 unit PO QAM 05/31/18 05/07/22 History mcg (1,000 unit) capsule (Vitamin D3) multivitamin 1 tab PO QAM 05/31/18 05/07/22 History omega 3-qoo-cgy-fish oil 1,000 mg 1 cap PO QAM 05/31/18 05/07/22 History (120 mg-180 mg) capsule (Fish Oil) polyethylene glycol 3350 17 gram 8.5 g PO QPM 01/21/20 05/07/22 History oral powder packet (Miralax) aspirin 81 mg tablet,delayed 81 mg PO Q OTHER DAY 02/19/21 05/07/22 History release atorvastatin 20 mg tablet 20 mg PO QPM #90 tabs 12/17/21 05/07/22 Rx lisinopril 40 mg tablet 40 mg PO QAM #90 tabs 01/15/22 05/07/22 Rx gabapentin 400 mg capsule 400 mg PO TID #90 caps 03/25/22 05/07/22 Rx tramadol 50 mg tablet 50 - 100 mg PO TID PRN Pain #270 04/13/22 05/07/22 Rx tabs ondansetron 4 mg disintegrating 4 mg PO Q8H PRN nausea and 05/08/22 Rx tablet vomiting #10 tabs Past Med/Surg History Medical History Chronic back pain Diffuse myofascial pain syndrome Hyperglycemia Mild and stable Hyperlipidemia Hypertension Lumbar radicular pain Spinal stenosis Surgical History History of colonoscopy History of dilatation and curettage Removed uterine polyp History of left hip replacement (~02/2020) History of tooth extraction History of total shoulder replacement LEFT Family History Mother Stroke Father Cancer Denies family history of Ovarian cancer Prostate cancer Myocardial infarction Breast cancer Colorectal cancer Social History Smoking Status: Never smoker Second Hand Exposure: No; Hx Alcohol Use: No Hx Substance Use: No Preferred Language: Slovak Communication Ability: Effective Visual Impairment: No Limitations Hearing Ability: Normal Dispatcher Tow Truck Required: No Beliefs That Will Affect Care: None marital status: Current Living Situation: Spouse current occupational status: employed and retired Feels Safe at Home: Yes Assistive Devices: Glasses Review of Systems Review of Systems: All systems reviewed & are unremarkable except as noted in HPI & below Physical Exam Physical Exam: General: Grossly A&O. NAD. Cooperative. HEENT: Atraumatic, normocephalic. EOMI Pulm: CTAB. -wheezes, -rales, -rhonchi. No respiratory distress. Cardiac: RRR, -mrg. Radial pulses intact and symmetrical. Abdominal: Nontender, nondistended, soft. Integ: Warm, dry, intact. Msk: Moving all extrem. Results & Data Results & Data ([facility]) Vital Signs (Past 12 Hours) Vital Signs Temp Pulse Pulse Resp BP BP Pulse Ox 05/07/22 22:52 64 16 94 05/07/22 20:01 66 22 173/92 H 95 05/07/22 19:53 63 18 98 05/07/22 19:42 37.3 C 63 20 173/92 H 95 O2 Del Method 05/07/22 22:52 Room Air 05/07/22 20:01 Room Air 05/07/22 19:53 Room Air 05/07/22 19:42 Room Air Laboratory Results Cardiac Enzymes 05/07/22 Range/Units 19:45 AST 10 L (13-39) U/L Troponin I High Sens 9.2 (0-14) pg/ml CBC 05/07/22 Range/Units 19:45 WBC 6.86 (4.8-10.8) K/ul RBC 5.30 H (3.93-5.22) M/uL Hgb 16.0 (12.0-16.0) g/dl Hct 47.7 H (34.1-44.9) % Plt Count 135 (130-400) K/uL Neut # (Auto) 6.16 (1.4-6.5) K/uL Lymph # (Auto) 0.35 L (1.2-3.4) K/uL [place] # (Auto) 0.30 (0.24-0.82) K/uL Eos # (Auto) 0.00 (0-0.50) K/uL Baso # (Auto) 0.03 (0-0.2) K/uL Comprehensive Metabolic Panel 05/07/22 Range/Units 19:45 Sodium 134 L (136-145) mmol/L Potassium 3.9 (3.5-5.1) mmol/L Chloride 100 (98-107) mmol/L Carbon Dioxide 24 (21-32) mmol/L BUN 16 (6-23) mg/dl Creatinine 0.61 (0.6-1.2) mg/dl Glucose 141 H (70-99(Fasting)) mg/dl Calcium 9.5 (8.5-10.1) mg/dl AST 10 L (13-39) U/L ALT 11 (7-52) U/L Alkaline Phosphatase 53 (34-104) U/L Total Protein 7.2 (6.0-8.3) gm/dl Albumin 4.4 (3.4-5.0) gm/dl Intake and Output 05/07/22 05/07/22 05/08/22 14:59 22:59 06:59 Intake Total 500 / 500 Balance 500 / 500 Intake: IV 500 / 500 Sodium Chloride 0.9% 1000ML 500 500 / 500 ml @ 999 mls/hr IV .Q31M ONE Rx#:[id number] Other: Weight 105 kg Weight Measurement Method Built in [facility] Patient Weight 05/08/22 06:59 Weight 105 kg Diagnostic Findings Chest X-Ray 05/07/22 19:30 XR chest 1V portable HISTORY: 82 years-old Female weakness acute weakness COMPARISON: Chest CT 04/23/2021, chest radiograph 04/10/2021 TECHNIQUE: Portable AP view of the chest FINDINGS: Cardiac silhouette is enlarged. Atherosclerosis of the aorta. Suggested pulmonary arterial hypertension. No pneumothorax, pleural effusion, airspace consolidation or overt pulmonary edema. Degenerative changes of the right shoulder and spine. Left shoulder arthroplasty. IMPRESSION: Cardiomegaly without acute process. ACT 112: Negative or not required by law. The above report was generated using voice recognition software. It may contain grammatical, syntax or spelling errors. Electronically signed by: Dante Cueva M.D. 05/07/2022 7:58 PM Abdomen/Pelvis CT 05/07/22 20:29 CT abd pelvis wo con CLINICAL HISTORY: vomiting TECHNIQUE: Helical axial images of the abdomen and pelvis were obtained. Automated dose lowering techniques and/or adjustment according to patient size were utilized for this exam. This exam was performed without intravenous contrast. CT DOSE: 1169.11 mGy.cm COMPARISON: None available at the time of this dictation. FINDINGS: Lower chest: No acute abnormality Liver: Unremarkable. No focal lesions are seen. Gallbladder and biliary tree: No calcified gallstones. Normal caliber wall. No intra- or extrahepatic biliary ductal dilation. Pancreas: Unremarkable, no focal lesions. Spleen: Unremarkable. 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 Kidneys and ureters: Perinephric stranding is noted bilaterally. Bladder: Unremarkable. Reproductive organs: Unremarkable. Bowel: Diverticulosis is seen without evidence of diverticulitis. The appendix is normal. There is a small hiatal hernia. No small bowel obstruction is seen. There is gaseous distention of the sigmoid colon with a moderate amount of stool in the rectum. Lymph nodes Retroperitoneal: Unremarkable. Pelvic: Unremarkable. Mesenteric: Unremarkable. Peritoneum: Normal. Vessels: Atherosclerotic calcifications are seen. 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 Abdominal wall: Unremarkable. Bones: Degenerative changes in the visualized spine. S-shaped scoliosis is seen. IMPRESSION: 1. No evidence of bowel obstruction or other acute abnormality. There is gas and a moderate amount of stool in the rectum. 2. Diverticulosis without diverticulitis. 3. There is a small hiatal hernia. 4. Additional findings as above. ACT 112: Negative or not required by law. Electronically signed by: Jewel Farrar M.D. 05/07/2022 10:27 PM Code Status & VTE Plan Code Status full VTE Prophylaxis Plan VTE Prophylaxis will be ordered: Yes Supervising Physician Co-Signing Physician Notes Attending addendum: I have physically seen this patient, have supervised the medical residents activities, and agree with the H&P unless as otherwise noted. Assessment and Plan: Abnormal EKG/hypertension Lateral EKG changes in 1, aVL, V4-V6 with T wave inversions. The patient will be admitted to telemetry for serial cardiac enzymes, serial EKG's, cardiac rhythm monitoring and a 2-D echocardiogram with Dopplers. Consult cardiology Primary symptoms were that of nausea vomiting, which may be an anginal equivalent Continue aspirin 81 mg daily, lisinopril 40 mg daily Follow serial EKGs and troponins Hyperlipidemia- Continued continue atorvastatin 20 mg in the evening Check a fasting lipid panel and hemoglobin A1c Remaining orders and notations as noted Resident Activity Tracking Resident Involvement: Resident Care Provided Care Provided: Adult [facility] Medicine
[2022-05-08] MEDS ORDERED: GABAPENTIN 400 MG CAP PO STA (01:17)
[2022-05-08 08:03] LABS: Adenovirus F 40/41 PCR Not Detected (NotDetected); Astrovirus PCR Not Detected (NotDetected); Campylobacter PCR Not Detected (NotDetected); Clostridium diff Toxin A/B PCR Not Detected (NotDetected); Cryptosporidium PCR Not Detected (NotDetected); Cyclospora cayetanensis PCR Not Detected (NotDetected); Entamoeba histolytica PCR Not Detected (NotDetected); Enteroaggregative E.coli(EAEC) Not Detected (NotDetected); Enteropathogenic E.coli (EPEC) Not Detected (NotDetected); Enterotoxigenic E.coli (ETEC) Not Detected (NotDetected); Giardia lamblia PCR Not Detected (NotDetected); Norovirus GI/GII PCR Not Detected (NotDetected); Plesiomonas shigelloides PCR Not Detected (NotDetected); Rotavirus A PCR Not Detected (NotDetected); Salmonella PCR Not Detected (NotDetected); Sapovirus PCR Not Detected (NotDetected); Shiga-like Toxin E.coli (STEC) Not Detected (NotDetected); Shigella/Enteroinvasive E.coli Not Detected (NotDetected); Vibrio cholerae PCR Not Detected (NotDetected); Vibrio species PCR Not Detected (NotDetected); Yersinia enterocolitica PCR Not Detected (NotDetected)
[2022-05-08 08:23] LABS: Basophils # (auto) 0.01 K/uL (0-0.2); Basophils % (auto) 0.2 %; Eosinophils # (auto) 0.01 K/uL (0-0.50); Eosinophils % (auto) 0.2 %; Hematocrit (blood only) 42.1 % (34.1-44.9); Hemoglobin 14.2 g/dl (12.0-16.0); Immature Granulocytes # (auto) 0.02 K/uL (0.00-0.02); Immature Granulocytes % (auto) 0.3 %; Lymphocytes # (auto) 0.79 K/uL (1.2-3.4); Lymphocytes % (auto) 13.2 %; Mean Corpuscular Hemoglobin 30.3 pg (25.0-34.0); Mean Corpuscular Hgb Conc 33.7 g/dL (32.0-36.0); Mean Corpuscular Volume 89.8 fL (80.0-100.0); Monocytes # (auto) 0.61 K/uL (0.24-0.82); Monocytes % (auto) 10.2 %; Neutrophils # (auto) 4.54 K/uL (1.4-6.5); Neutrophils % (auto) 75.9 %; Platelet Count 132 K/uL (130-400); RDW Coefficient of Variation 13.2 % (11.5-14.5); RDW Standard Deviation 43.4 fL (36.4-46.3); Red Blood Count 4.69 M/uL (3.93-5.22); White Blood Count 5.98 K/ul (4.8-10.8)
[2022-05-08] MEDS ORDERED: POLYETHYLENE (MIRALAX) 17 GM PACK PO SCH ×2 (09:00→21:00)
[2022-05-08] MEDS ORDERED: lisinopril 40 MG TAB PO SCH (09:00)
[2022-05-08 09:05] LABS: Albumin Globulin Ratio 1.7 (0.9-2); Albumin Level 3.8 gm/dl (3.4-5.0); BUN Creatinine Ratio 19.7 (10-20); Bilirubin,Total 1.6 mg/dl (0.2-1.0); Calcium 8.9 mg/dl (8.5-10.1); Creatinine Clr Calc Pharmacy 89.2 ml/min; Est GFR (African American) 96.5 ml/min; Est GFR (Non-African American) 83.2 ml/min; Globulin 2.3 gm/dl (2.5-4.0); Magnesium 1.9 mg/dl (1.7-2.4); Potassium 3.8 mmol/L (3.5-5.1); Total Protein 6.1 gm/dl (6.0-8.3); Troponin I High Sensitivity 14.1 pg/ml (0-14)
--- NOTE | 2022-05-08 09:53 | XCELERA ---
[id number]
[2022-05-08] MEDS: GABAPENTIN 400 MG CAP PO SCH ×2 (10:14→14:30)
--- NOTE | 2022-05-08 13:52 | Electrocardiogram Report ---
Test Reason : Blood Pressure : / mmHG Vent. Rate : 062 BPM Atrial Rate : 062 BPM P-R Int : 114 ms QRS Dur : 096 ms QT Int : 396 ms P-R-T Axes : 105 -27 144 degrees QTc Int : 401 ms Normal sinus rhythm Incomplete right bundle branch block Left ventricular hypertrophy with repolarization abnormality Abnormal ECG When compared with ECG of 10-APR-2021 20:41, T wave inversion now evident in Anterolateral leads Confirmed by Gage Brown ([id number]) on 05/08/2022 1:51:57 PM Referred By: REFERRED SELF Confirmed By:Gage Brown
--- NOTE | 2022-05-08 14:22 | Discharge Summary ---
Date of Service May 08, 2022 Admission HPI Per Admitting Provider 82 year old female w/ PMHx of chronic low back pains who presents w/ new nausea and vomiting x 1 day. She had 5-6 episodes of emesis of food and clear liquid this morning, a few hours after waking up. Her symptoms then subsided, ut returned milder in the afternoon. Her family then brought her to the ED since patient normally does not have emesis. Patient denies hx of [place] or stroke. Currently, she is not nauseated. She has mild headache. She denies other symptoms such as fever/chills, chest pain, shortness of breath. w/o GI symptoms. ED course: NSS x 1.5L ecg reviewed: new anterolateral lead T wave inversion when compared to last year. Principal Diagnosis Suspected food poisoning Incidental iliac artery aneurysm Discharge Exam Constitutional WD/WN, vitals as above ENMT external ear and nose normal, oropharynx normal Respiratory normal respiratory effort, lungs clear to auscultation Cardiovascular RRR, no murmur, no edema Gastrointestinal (Abdomen) normal bowel sounds, soft, nontender, no hepatosplenomegaly Musculoskeletal no cyanosis or clubbing, extremities motor strength 5/5 Skin no rashes, warm and dry Neurologic moves all extremities and awake; not confused Psychiatric A+Ox3, euthymic affect Discharge Data Allergies Allergy/AdvReac Type Severity Reaction Status Date / Time cyclobenzaprine AdvReac Mild does not Verified 05/07/22 20:12 feel good when taking Ordered Studies 05/07/22 20:29 CT Abd and Pelvis [CT abd pelvis wo con] Stat IMPRESSION: 1. No evidence of bowel obstruction or other acute abnormality. There is gas and a moderate amount of stool in the rectum. 2. Diverticulosis without diverticulitis. 3. There is a small hiatal hernia. 4. Additional findings as above. Hospital Course (1) Acute electrocardiogram changes: Shreya Leroy is an 82 year old female observed at [facility] overnight from May 07 - 2021 due to vomiting. Most likely this was food poisoning related. She will be prescribed ondansetron as needed for anti-nausea/vomiting. Her symptoms resolved by the following day. She had some mild EKG changes however subsequent workup with high sensitivity troponin I and echocardiogram were unremarkable and suspect these EKG changes are just due to her mild Left ventricular hypertrophy. She was incidentally noted to have a 19mm iliac artery aneurysm. Consider 6 month follow up imaging of this to check the stability of this. (2) Nausea & vomiting: (3) Hypertension: (4) Hyperlipidemia: (5) Iliac artery aneurysm: Total Time Total Time Spent Total Time Spent (In Minutes): 30 Discharge Plan Discharge Items Patient Disposition: Home - Self-Care Reason For Visit: EKG CHANGES Discharge Diagnosis: Suspected food poisoning Activity: Resume your previous activity Non-emergency contact: Primary Care Provider Call non-emergency contact if: you have any medication questions and your symptoms worsen Follow-up/Referrals: Alyson Kingsley MD [Primary Care Provider] - 05/17/22 11:30 am Diet: Regular Addtl Attending Provider Instructions: You were observed at [facility] overnight from May 07 - 2021 due to vomiting. Most likely this was food poisoning related. You will be prescribed ondansetron (Zofran) as needed for anti-nausea/vomiting. You had some mild EKG changes however subsequent workup with high sensitivity cardiac enzymes and echocardiogram were unremarkable and suspect these EKG changes are not concerning and require no further cardiac workup. Pending Studies at Discharge: No Stand-Alone Forms: My [facility], Smoking Cessation Medications and DC Order Prescriptions: New ondansetron 4 mg tablet,disintegrating 4 mg PO Q8H PRN (Reason: nausea and vomiting) Qty: 10 0RF Continued atorvastatin 20 mg tablet 20 mg PO QPM Qty: 90 3RF lisinopril 40 mg tablet 40 mg PO QAM Qty: 90 3RF gabapentin 400 mg capsule 400 mg PO TID Qty: 90 6RF tramadol 50 mg tablet 50 - 100 mg PO TID PRN (Reason: Pain) Qty: 270 0RF Rx Instructions: PDMP searched, last filled on 02/15/2022 for a 45 day supply. Okay to fill multivitamin Tablet 1 tab PO QAM cholecalciferol (vitamin D3) [Vitamin D3] 1,000 unit Capsule 1,000 unit PO QAM omega 0-cqn-vzk-fish oil [Fish Oil] 1,000 mg (120 mg-180 mg) Capsule 1 cap PO QAM polyethylene glycol 3350 [Miralax] 17 gram powder in packet 8.5 g PO QPM aspirin 81 mg Tablet,Delayed Release (Dr/Ec) 81 mg PO Q OTHER DAY Discharge Orders: Discharge Order (Routine); Ordered 05/08/22 Ordered By: John Umana Admission Data Admit Date/Time: 05/07/22 23:59 Attending Provider: John Umana Admit Provider: Mata Montoya Primary Care Provider: Alyson Kingsley Other Interventions: Discharge Summary Assessment (RN) Last Done: 05/08/22 14:31 Coding Level of Care Code 84101 OBS Care - Discharge Diagnoses Acute electrocardiogram changes R94.31 Nausea & vomiting R11.2 Hypertension I10 Hyperlipidemia E78.5 Iliac artery aneurysm I72.3
[2022-05-08] MEDS ORDERED: ATORVASTATIN 20 MG TAB PO SCH (21:00)
--- NOTE | 2022-05-09 00:32 | Billing Data ---
Date of Service May 09, 2022 Coding Level of Care Code INT OBSERVATION CARE 70M LVL 3
== END 2022-05-08 15:06 | disposition home or self-care (01) ==
LOC: ED 19:31 → INTOOBSV 23:59 → 2S 23:59 → SUATTDRO 23:59 → 2S 05-08 01:15

== ENCOUNTER 2023-08-24 06:12 | Inpatient (IN) ==
--- NOTE | 2023-08-11 12:08 | Anesthesiology Consultation ---
Date of Service August 11, 2023 Assessment & Plan (1) Preoperative cardiovascular examination: - cardiology office visit 08/02/23 [place]: "...Hypertension, Dyslipidemia, Chronic Low Back Pain, Spinal Stenosis, Iliac Artery Aneurysm, Pulmonary Nodules, Osteoarthritis s/p Left ERIKA, s/p Reversed TSA, Junctional Bradycardia 2016, and Recent Onset A-Fib with RVR and Cardiomyopathy (likely tachycardia induced) who presents today for follow-up of her Persistent Atrial Fibrillation and to a rrange a Cardioversion...remains in atrial fibrillation with a controlled ventricular response and an acceptable corrected QT interval of 390 msec -- as confirmed on today's EKG. I am hopeful that just controlling her heart rate will help her to regain her LV systolic function, and this would be more likely to happen as well if she was in a normal sinus rhythm...cardioversion..." - Per membership sales advisor on 08/11/2023: No known infectious disease contacts, current infectious disease symptoms in past 10 days or COVID positive test result in the past 30 days. Chart Review Chart Review: customs entry writer initiated History Surgery Operation Date: 08/24/23 07:15 Proposed Procedures p Cardioversion Belt Splicer w/Anesthesia - Gage Brown MD Height/Weight Height: 5 ft 10 in Weight: 104.326 kg Allergies Allergy/AdvReac Type Severity Reaction Status Date / Time No Known Drug Allergies Allergy Mild Verified 08/11/23 10:54 Medications Home Medications Medication Instructions Recorded Confirmed Last Taken cholecalciferol (vitamin D3) 25 1,000 unit PO QAM 05/31/18 08/11/23 02/17/21 mcg (1,000 unit) capsule (Vitamin D3) multivitamin 1 tab PO QAM 05/31/18 08/11/23 02/17/21 omega 3-ptl-jcv-fish oil 1,000 mg 1 cap PO QAM 05/31/18 08/11/23 02/17/21 (120 mg-180 mg) capsule (Fish Oil) aspirin 81 mg tablet,delayed 81 mg PO Q OTHER DAY 02/19/21 08/11/23 02/17/21 release polyethylene glycol 3350 17 8.5 g PO DAILY PRN Constipation 01/10/23 08/11/23 Unknown gram/dose oral powder (Miralax) lisinopril 40 mg tablet 40 mg PO QAM #90 tabs 02/23/23 08/11/23 Unknown acetaminophen 500 mg capsule 500 mg PO Q6H PRN Pain 06/08/23 08/11/23 Unknown gabapentin 400 mg capsule 400 mg PO TID #90 caps 06/08/23 08/11/23 Unknown apixaban 5 mg tablet (Eliquis) 5 mg PO BID #180 tabs 06/15/23 08/11/23 Unknown tramadol 50 mg tablet 50 - 100 mg (1 - 2 x 50 mg) PO TID 07/12/23 08/11/23 Unknown PRN Pain #270 tabs amiodarone 200 mg tablet 200 mg PO QAM 08/11/23 08/11/23 Unknown atorvastatin 20 mg tablet (Lipitor) 20 mg PO QPM 08/11/23 08/11/23 Unknown metoprolol succinate 100 mg 100 mg PO QAM 08/11/23 08/11/23 Unknown tablet,extended release 24 hr prednisone 10 mg tablet 10 mg PO QAM 08/11/23 08/11/23 Unknown Past Medical History Medical History Atrial fibrillation, persistent pt reports it goes in and out, pt was asymptomatic with the a.fib. Following with Dr Brown. 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 Chronic right hip pain Anaplasmosis hx ~02/2021, treated inpatient at [facility]. Hyperglycemia Mild and stable Spinal stenosis Hypertension Hyperlipidemia Past Family History Family History Mother Stroke Father Cancer Other No family history of adverse response to anesthesia Denies family history of Ovarian cancer Prostate cancer Myocardial infarction Breast cancer Colorectal cancer Past Surgical History Surgical History History of cystoscopy with urethra dilation History of left hip replacement (~02/2020) History of dilatation and curettage Removed uterine polyp History of total shoulder replacement LEFT History of colonoscopy History of tooth extraction Social History Smoking Status: Never smoker Do You Dip or Chew Tobacco: No Hx Alcohol Use: No Hx Substance Use: No substance use type: does not use Testing Electrocardiogram Date: 08/02/23 Afib, rate 81 bpm Left axis deviation Moderate voltage criteria for LVH Nonspecific T wave abnormality Chest X-Ray Date: 06/08/23 *1view* 1. Cardiomegaly with no acute cardiopulmonary abnormality identified. 2. The highly suspicious groundglass lesion at the left apex seen on a prior chest cannot be evaluated by x-ray. Echocardiogram Date: 06/15/23 EF 30-35% Moderate global hypokinesis of LV Mild cLVH Moderately dilated atria Mild aortic regurgitation Moderate mitral regurgitation Trace-mild tricuspid regurgitation Other Testing Head and neck CTA 02/19/21 1. No significant stenosis, occlusion, or aneurysm within the [place]. 2. No significant stenosis, occlusion, or dissection identified within the carotid or cervical vertebral arteries. 3. Mild focal narrowing within the distal intracranial portions of the bilateral vertebral arteries due to the calcified plaque. 4. A 3 cm groundglass density within the left lung apex. This could represent a small focus of inflammatory/infectious change. However, [address] follow-up recommended to exclude the possibility of a low-grade neoplasm.
[2023-08-24] MEDS ORDERED: LIDOCAINE 2% 2 ML VIAL/AMP(20MG/ML) INFIL ONE (06:51)
[2023-08-24] MEDS ORDERED: PROPOFOL IV EMULSION 10 MG/ML 20 ML VIAL IV ONE (06:51)
--- NOTE | 2023-08-24 07:13 | Anesthesiology Consultation ---
Date of Service August 24, 2023 Assessment & Plan ASA ASA3 Proposed Anesthesia Anesthesia Type: MAC Risk / Benefits Reviewed With: PT / POA / Parent / Guardian, Accepts Plan and Informed Consent Obtained History Surgery Operation Date: 08/24/23 07:15 Proposed Procedures p Cardioversion Screen Cutter And Trimmer w/Anesthesia - Gage Brown MD Height/Weight Height: 5 ft 10 in Weight: 104.326 kg Allergies Allergy/AdvReac Type Severity Reaction Status Date / Time No Known Drug Allergies Allergy Mild Verified 08/11/23 10:54 Medications Home Medications Medication Instructions Recorded Confirmed Last Taken cholecalciferol (vitamin D3) 25 1,000 unit PO QAM 05/31/18 08/11/23 02/17/21 mcg (1,000 unit) capsule (Vitamin D3) multivitamin 1 tab PO QAM 05/31/18 08/11/23 02/17/21 omega 3-cyr-zdj-fish oil 1,000 mg 1 cap PO QAM 05/31/18 08/11/23 02/17/21 (120 mg-180 mg) capsule (Fish Oil) aspirin 81 mg tablet,delayed 81 mg PO Q OTHER DAY 02/19/21 08/11/23 02/17/21 release polyethylene glycol 3350 17 8.5 g PO DAILY PRN Constipation 01/10/23 08/11/23 Unknown gram/dose oral powder (Miralax) lisinopril 40 mg tablet 40 mg PO QAM #90 tabs 02/23/23 08/11/23 Unknown acetaminophen 500 mg capsule 500 mg PO Q6H PRN Pain 06/08/23 08/11/23 Unknown gabapentin 400 mg capsule 400 mg PO TID #90 caps 06/08/23 08/11/23 Unknown apixaban 5 mg tablet (Eliquis) 5 mg PO BID #180 tabs 06/15/23 08/11/23 Unknown amiodarone 200 mg tablet 200 mg PO QAM 08/11/23 08/11/23 Unknown atorvastatin 20 mg tablet (Lipitor) 20 mg PO QPM 08/11/23 08/11/23 Unknown metoprolol succinate 100 mg 100 mg PO QAM 08/11/23 08/11/23 Unknown tablet,extended release 24 hr prednisone 10 mg tablet 10 mg PO QAM 08/11/23 08/11/23 Unknown tramadol 50 mg tablet 50 - 100 mg (1 - 2 x 50 mg) PO TID 08/23/23 Unknown PRN Pain #270 tabs Past Medical History Medical History Junctional bradycardia 2017 Iliac artery aneurysm Abd/Pelvis CT 04/2022: Aneurysmal dilation of the distal common left iliac artery measuring 19 mm Pulmonary nodules Atrial fibrillation, persistent Follows with Dr. 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 Chronic prednisone for her hip pain (patient states for OA) Chronic right hip pain Anaplasmosis Hx 2020, treated inpatient at [facility] Hyperglycemia "Mild, stable" Spinal stenosis Hypertension Hyperlipidemia Exercise / Class Metabolic Activity II 4-5 Yardwork/Stairs/Walk up hill Past Family History Family History Mother Stroke Father Cancer Other No family history of adverse response to anesthesia Denies family history of Ovarian cancer Prostate cancer Myocardial infarction Breast cancer Colorectal cancer Past Surgical History Surgical History History of cystoscopy with urethra dilation History of left hip replacement History of dilatation and curettage Removed uterine polyp History of total shoulder replacement Left anterior ERIKA (02/29/20): SAB at L3/4 (x3 attempts) at [facility] History of colonoscopy History of tooth extraction Past Anesthesia History No Hx of Anesthesia Complications and No Family Hx of Anesthesia Complications History of PONV No Hx of PONV and No Hx of Motion Sickness Social History Smoking Status: Never smoker Do You Dip or Chew Tobacco: No Hx Alcohol Use: No Hx Substance Use: No substance use type: does not use Review of Systems denies fever/cough/ colds/ chest pain/ SOB/ ALFONZO denies ALFONZO Physical Exam ENMT Mouth: no TMJ abnormality and no dentition abnormality Thyromental Distance: > or= 3.5 Finger Breadths Mallampati Class: II Neck neck extension not limited Respiratory normal respiratory effort; no respiratory distress Auscultation: lungs clear to auscultation bilaterally Cardiovascular Rate/Rhythm: regular rate and regular rhythm Neurologic moves all extremities Psychiatric Orientation: alert and oriented x 3 Testing Electrocardiogram Date: 08/02/23 Afib, rate 81 bpm Left axis deviation Moderate voltage criteria for LVH Nonspecific T wave abnormality Chest X-Ray Date: 06/08/23 *1view* 1. Cardiomegaly with no acute cardiopulmonary abnormality identified. 2. The highly suspicious groundglass lesion at the left apex seen on a prior chest cannot be evaluated by x-ray. Echocardiogram Date: 06/15/23 EF 30-35% Moderate global hypokinesis of LV Mild cLVH Moderately dilated atria Mild aortic regurgitation Moderate mitral regurgitation Trace-mild tricuspid regurgitation Other Testing Head and neck CTA 02/19/21 1. No significant stenosis, occlusion, or aneurysm within the crow of [place]. 2. No significant stenosis, occlusion, or dissection identified within the carotid or cervical vertebral arteries. 3. Mild focal narrowing within the distal intracranial portions of the bilateral vertebral arteries due to the calcified plaque. 4. A 3 cm groundglass density within the left lung apex. This could represent a small focus of inflammatory/infectious change. However, [address] follow-up recommended to exclude the possibility of a low-grade neoplasm.
--- NOTE | 2023-08-24 08:22 | Anesthesiology Progress Note ---
Date of Service August 24, 2023 Anesthesia Post Procedure Vital Signs Vital Signs: Temp Pulse Resp BP Pulse Ox O2 Del Method 08/24/23 08:15 34 L 18 101/59 L 97 Room Air 08/24/23 08:00 33 L 18 101/59 L 97 Room Air 08/24/23 07:50 33 L 18 106/56 L 97 Room Air 08/24/23 07:35 34 L 18 104/57 L 98 Room Air 08/24/23 07:29 33 L 18 139/70 97 Room Air 08/24/23 06:50 36.8 C 80 20 157/103 H 99 Room Air Transfer of Care Handoff Completed per policy Notes Mental Status: alert / awake / arousable and participated in evaluation Patient Amnestic to Procedure: Yes Nausea / Vomiting: adequately controlled Pain: adequately controlled Airway Patency, RR, SpO2: stable & adequate BP & HR: stable & adequate Hydration State: stable & adequate Anesthetic Complications: no major complications apparent and Pt Satisfied with anesthetic care
--- NOTE | 2023-08-24 09:20 | History & Physical Report ---
Date of Service August 24, 2023 Assessment & Plan (1) Junctional bradycardia: (2) Sinus node dysfunction: (3) Atrial fibrillation status post cardioversion: Plan: Mrs. Leroy is an 83-year-old female with a history of Hypertension, Dyslipidemia, Chronic Low Back Pain, Spinal Stenosis, Iliac Artery Aneurysm, Pulmonary Nodules, Osteoarthritis s/p Left ERIKA, s/p Reversed TSA, Junctional Bradycardia 2016, and Persistent A-Fib with RVR and Cardiomyopathy (likely t achycardia induced) who underwent an Elective Electrical Cardioversion this morning (08/24/23) with Dr. 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 She is completely asymptomatic despite her bradycardia but as a precaution she will be admitted overnight on telemetry. She took her last doses of Amiodarone and Metoprolol Succinate ER yesterday morning (in the a.m. of 08/23/22). Patient was in her usual state of health on 06/08/2023 and was being seen at her PCP's office for a routine checkup. She did not have any complaints that day but was noted to have a fast and irregular pulse on examination. EKG confirmed presence of A-Fib with RVR. She was subsequently referred to [facility] ER for further evaluation treatment. She did not had any sensation of palpitations, tachy-palpitations, decrease in exertional tolerance, unusual dyspnea on exertion or any chest discomfort. Her evaluation in the ER showed mild hyperglycemia with blood sugar of 129 mg/dL, normal electrolytes, normal kidney function, normal TSH, normal CBC with diff, and her chest x-ray showed cardiomegaly without acute cardiopulmonary processes but she did have a suspicious ground-glass lesion in the left apex. High sensitivity troponin I was unremarkable at 12.6 pg/mL. EKG showed atrial fibrillation with RVR, no acute changes. Patient was placed on a child monitor and was given a single dose of IV Lopressor 5 mg which did bring her heart rate down, also treated with IV Cardizem and Heparin. Hospitalist consultation was undertaken they felt that she was able to go home safely with close follow-up by Cardiology. Patient was discharged on Lopressor 25 mg b.i.d. and Eliquis 5 mg b.i.d. (patient did not actually start her Eliquis until 06/15/23). Patient has not had any symptoms attributable to her rapid atrial fibrillation or her cardiomyopathy at any time. When I saw her on 06/15/2023 we stopped her Lopressor in favor of Toprol-XL 100 mg daily and she was started on Eliquis 5 mg b.i.d.. At her follow-up visit on 07/06/23 after extensive discussion, we decided to start her on Amiodarone 200 mg daily x 30 days before proceeding with this cardioversion -- as this would give us the best odds of maintaining a sinus rh ythm after cardioversion. Her only complaint at any point has been ongoing hip pain and she has been anxious to get her hip replaced. She has not experienced any exertional chest pain, heaviness, tightness, pressure, or discomfort. She has not experienced any exertional neck, jaw, back, or arm pain. She denies any shortness of breath, unusual dyspnea on exertion, changes in exertional toleran ce, orthopnea, or PND. She denies any palpitations, syncope, or near-syncope. She has not had any focal neurologic symptoms suggestive of stroke or mini stroke. Patient is compliant with her medications and has not had any adverse side effects. This morning the patient underwent an Elective Electrical Cardioversion (08/24/23) with Dr. Brown -- she was initially given 100 J of synchronized bipha sic energy but remained in A-Fib, subsequent delivery of 150 J of synchronized biphasic energy successfully converted to junctional/sinus bradycardia after a prolonged conversion pause. 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 She is completely asymptomatic despite her bradycardia but as a precaution she will be admitted overnight on telemetry. She took her last doses of Amiodarone and Metoprolol Succinate ER yesterday morning (in the a.m. of 08/23/22). Recommend the following: -- Admit to PCU overnight on telemetry on [facility] Cardiology Service. -- Hold Amiodarone. -- Hold Metoprolol Succinate ER due to bradycardia. -- Continue Eliquis 5 mg b.i.d.. -- We would like to see her HR consistently in the 50's or 60's and it should trend up as Metoprolol has been held along with Amiodarone. 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 -- LVEF 30% to 35% on Echocardiogram 06/15/23. -- No evidence or overt signs/symptoms of heart failure at any time. -- Monitor I&O's, daily body weights. (5) Chronic anticoagulation: Plan: -- Continue Eliquis 5 mg b.i.d. to reduce the risk of stroke/thromboembolic phenomena associated with A-Fib. Plan We anticipate discharge within 24 to 48 hours. Admission and Anticipated Discharge Date Admission Date: 08/24/22 History of Present Illness Primary Care Provider: Alyson Kingsley MD Mrs. Leroy is an 83-year-old female with a history of Hypertension, Dyslipidemia, Chronic Low Back Pain, Spinal Stenosis, Iliac Artery Aneurysm, Pulmonary Nodules, Osteoarthritis s/p Left ERIKA, s/p Reversed TSA, Junctional Bradycardia 2016, and Persistent A-Fib with RVR and Cardiomyopathy (likely tachycardia induced) who underwent an Elective Electrical Cardioversion this morning (08/24/23) with Dr. 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 She is completely asymptomatic despite her bradycardia but as a precaution she will be admitted overnight on telemetry. She took her last doses of Amiodarone and Metoprolol Succinate ER yesterday morning (in the a.m. of 08/23/22). Patient was in her usual state of health on 06/08/2023 and was being seen at her PCP's office for a routine checkup. She did not have any complaints that day but was noted to have a fast and irregular pulse on examination. EKG confirmed presence of A-Fib with RVR. She was subsequently referred to [facility] ER for further evaluation treatment. She did not had any sensation of palpitations, tachy-palpitations, decrease in exertional tolerance, unusual dyspnea on exertion or any chest discomfort. Her evaluation in the ER showed mild hyperglycemia with blood sugar of 129 mg/dL, normal electrolytes, normal kidney function, normal TSH, normal CBC with diff, and her chest x-ray showed cardiomegaly without acute cardiopulmonary processes but she did have a suspicious ground-glass lesion in the left apex. High sensitivity troponin I was unremarkable at 12.6 pg/mL. EKG showed atrial fibrillation with RVR, no acute changes. Patient was placed on a child monitor and was given a single dose of IV Lopressor 5 mg which did bring her heart rate down, also treated with IV Cardizem and Heparin. Hospitalist consultation was undertaken they felt that she was able to go home safely with close follow-up by Cardiology. Patient was discharged on Lopressor 25 mg b.i.d. and Eliquis 5 mg b.i.d.. Patient has not had any symptoms attributable to her rapid atrial fibrillation or her cardiomyopathy at any time. When I saw her on 06/15/2023 we stopped her Lopressor in favor of Toprol-XL 100 mg daily and she was started on Eliquis 5 mg b.i.d.. At her follow-up visit on 07/06/23 after extensive discussion, we decided to start her on Amiodarone 200 mg daily x 30 days before proceeding with this cardioversion -- as this would give us the best odds of maintaining a sinus rhythm after cardioversion. Her only complaint at any point has been ongoing hip pain and she has been anxious to get her hip replaced. She has not experienced any exertional chest pain, heaviness, tightness, pressure, or discomfort. She has not experienced any exertional neck, jaw, back, or arm pain. She denies any shortness of breath, unusual dyspnea on exertion, changes in exertional tolerance, orthopnea, or PND. She denies any palpitations, syncope, or near-syncope. She has not had any focal neurologic symptoms suggestive of stroke or mini stroke. Patient is compliant with her medications and has not had any adverse side effects. Allergies Allergy/AdvReac Type Severity Reaction Status Date / Time No Known Allergies Allergy Unverified 08/24/23 07:59 Home Medications Medication Instructions Recorded Confirmed Type cholecalciferol (vitamin D3) 25 1,000 unit PO QAM 05/31/18 08/24/23 History mcg (1,000 unit) capsule (Vitamin D3) multivitamin 1 tab PO QAM 05/31/18 08/24/23 History omega 0-sag-znh-fish oil 1,000 mg 1 cap PO QAM 05/31/18 08/24/23 History (120 mg-180 mg) capsule (Fish Oil) aspirin 81 mg tablet,delayed 81 mg PO Q OTHER DAY 02/19/21 08/24/23 History release polyethylene glycol 3350 17 8.5 g PO DAILY PRN Constipation 01/10/23 08/24/23 History gram/dose oral powder (Miralax) lisinopril 40 mg tablet 40 mg PO QAM #90 tabs 02/23/23 08/24/23 Rx acetaminophen 500 mg capsule 500 mg PO Q6H PRN Pain 06/08/23 08/24/23 History gabapentin 400 mg capsule 400 mg PO TID #90 caps 06/08/23 08/24/23 Rx apixaban 5 mg tablet (Eliquis) 5 mg PO BID #180 tabs 06/15/23 08/24/23 Rx amiodarone 200 mg tablet 200 mg PO QAM 08/11/23 08/24/23 History atorvastatin 20 mg tablet (Lipitor) 20 mg PO QPM 08/11/23 08/24/23 History metoprolol succinate 100 mg 100 mg PO QAM 08/11/23 08/24/23 History tablet,extended release 24 hr prednisone 10 mg tablet 10 mg PO QAM 08/11/23 08/24/23 History tramadol 50 mg tablet 50 - 100 mg (1 - 2 x 50 mg) PO TID 08/23/23 08/24/23 Rx PRN Pain #270 tabs Past Med/Surg History Medical History (Updated 08/24/23 @ 09:33 by Jay Butler PA-C) Junctional bradycardia 2017 Iliac artery aneurysm Abd/Pelvis CT 04/2022: Aneurysmal dilation of the distal common left iliac artery measuring 19 mm Pulmonary nodules Atrial fibrillation, persistent Follows with Dr. 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 Chronic prednisone for her hip pain (patient states for OA) Chronic right hip pain Anaplasmosis Hx 2020, treated inpatient at [facility] Hyperglycemia "Mild, stable" Spinal stenosis Hypertension Hyperlipidemia Surgical History History of cystoscopy with urethra dilation History of left hip replacement History of dilatation and curettage Removed uterine polyp History of total shoulder replacement Left anterior ERIKA (02/29/20): SAB at L3/4 (x3 attempts) at [facility] History of colonoscopy History of tooth extraction Family History Mother Stroke Father Cancer Other No family history of adverse response to anesthesia Denies family history of Ovarian cancer Prostate cancer Myocardial infarction Breast cancer Colorectal cancer Social History Smoking Status: Never smoker Second Hand Exposure: Yes (as a child); Do You Dip or Chew Tobacco: No; Tobacco Cessation Education Requested by Patient: No Hx Alcohol Use: No Hx Substance Use: No Preferred Language: Greek Communication Ability: Effective Visual Impairment: No Limitations Hearing Ability: Normal Nursing Associate Required: No Beliefs That Will Affect Care: None marital status: Current Living Situation: Spouse current occupational status: retired How many Children do You have: 2 Other Information That Helps Us Care for You: No Feels Safe at Home: Yes Safety Concerns: Feels Safe At This Time Childhood Exposure to Second-Hand Smoke: Yes Diet: regular caffeine: No Dental Care, Regularly: Yes Physical Activity Frequency: Daily Seatbelt Use: always Sunscreen Use: No Assistive Devices: Cane and Glasses Review of Systems Review of Systems: -- 10 point ROS completed and is negativ e with the exception of what is mentioned in the HPI. Physical Exam Physical Exam: Blood pressure is 110/57. SpO2 98% on room air. GENERAL: Patient in no acute distress. HEENT: Head is atraumatic, normocephalic. EOM's intact. Facies symmetric. No perioral cyanosis. NECK: No JVD. JVP is not elevated. Carotid upstrokes are + 2 bilaterally without bruits. CHEST/LUNGS: Clear to auscultation throughout all lung august. No wheezes, rales, or crackles. CVS: S1 and S2 are regular and markedly bradycardic at 32 bpm. No murmurs, gallops, or rubs. PMI is nonpalpable. No lifts, heaves, or thrills. No abdominal aortic or renal bruits. ABDOMINAL EXAM: Bowel sounds are present. No masses, organomegaly, or tenderness. EXTREMITIES: No clubbing or cyanosis. No peripheral edema. Intact radial pulses bilaterally. NEUROLOGIC EXAM: Patient is awake, alert, and oriented. Pleasant and cooperative. Answers questions appropriately. Speech is clear. FACTORY LABORER: -- Currently in a junctional bradycardia at 32 bpm with occasional sinus beats/sinus bradycardia. ECHOCARDIOGRAM 06/15/23: -- Mildly dilated LV with moderately to severely reduced LV systolic function. -- Mild LVH. -- LVEF is 30% to 35%. -- Moderate left and mid right atrial di lation. -- Mild AI. -- Moderate MR. -- Urovy-fi-liwq TR. -- Compared to 05/08/22 study; LV systoli c function has decreased. Results & Data Results & Data Vital Signs (Past 12 Hours) Vital Signs Temp Pulse Resp BP Pulse Ox O2 Del Method 08/24/23 09:00 34 L 18 104/58 L 98 Room Air 08/24/23 08:45 30 L 18 110/57 L 98 Room Air 08/24/23 08:30 32 L 18 121/30 L 98 Room Air 08/24/23 08:15 34 L 18 101/59 L 97 Room Air 08/24/23 08:00 33 L 18 101/59 L 97 Room Air 08/24/23 07:50 33 L 18 106/56 L 97 Room Air 08/24/23 07:35 34 L 18 104/57 L 98 Room Air 08/24/23 07:29 33 L 18 139/70 97 Room Air 08/24/23 06:50 36.8 C 80 20 157/103 H 99 Room Air Medications Administered Medications cholecalciferol (vitamin D3) 25 mcg (1,000 unit) capsule (Vitamin D3) 1,000 unit PO QAM 05/31/18 [History Confirmed 08/24/23] multivitamin 1 tab PO QAM 05/31/18 [History Confirmed 08/24/23] omega 5-okx-bxd-fish oil 1,000 mg (120 mg-180 mg) capsule (Fish Oil) 1 cap PO QAM 05/31/18 [History Confirmed 08/24/23] aspirin 81 mg tablet,delayed release 81 mg PO Q OTHER DAY 02/19/21 [History Confirmed 08/24/23] polyethylene glycol 3350 17 gram/dose oral powder (Miralax) 8.5 g PO DAILY PRN Constipation 01/10/23 [History Confirmed 08/24/23] lisinopril 40 mg tablet 40 mg PO QAM #90 tabs 02/23/23 [Rx Confirmed 08/24/23] acetaminophen 500 mg capsule 500 mg PO Q6H PRN Pain 06/08/23 [History Confirmed 08/24/23] gabapentin 400 mg capsule 400 mg PO TID #90 caps 06/08/23 [Rx Confirmed 08/24/23] apixaban 5 mg tablet (Eliquis) 5 mg PO BID #180 tabs 06/15/23 [Rx Confirmed 08/24/23] amiodarone 200 mg tablet 200 mg PO QAM 08/11/23 [History Confirmed 08/24/23] atorvastatin 20 mg tablet (Lipitor) 20 mg PO QPM 08/11/23 [History Confirmed 08/24/23] metoprolol succinate 100 mg tablet,extended release 24 hr 100 mg PO QAM 08/11/23 [History Confirmed 08/24/23] prednisone 10 mg tablet 10 mg PO QAM 08/11/23 [History Confirmed 08/24/23] tramadol 50 mg tablet 50 - 100 mg (1 - 2 x 50 mg) PO TID PRN Pain #270 tabs 08/23/23 [Rx Confirmed 08/24/23] Code Status & VTE Plan Code Status Full code. VTE Prophylaxis Plan VTE Prophylaxis will be ordered: Yes PG Care Time/CCT Total # of Minutes Spent Total Time Spent with Patient: Total time spent is greater than 50% in coordination of care (as documented) at patient's floor/unit and/or counseling patient:46 C[place] [address] INT INP/OBS CARE 2/55MIN Patient Type Established History Detailed Exam Detailed Medical Decision Making Moderate Complexity Diagnoses Junctional bradycardia R00.1 Sinus node dysfunction I49.5 Atrial fibrillation status post cardioversion I48.91 Cardiomyopathy, unspecified type I42.9 Cardiomyopathy type: unspecified Chronic anticoagulation Z79.01 Time Spent (min) 54 (4) Cardiomyopathy Cardiomyopathy type: unspecified Qualified Code(s): I42.9 - Cardiomyopathy, unspecified
--- NOTE | 2023-08-24 09:41 | Cardioversion ---
Date of Service August 24, 2023 PG Electrical Cardioversion Rp Electrical Cardioversion Report Date of procedure: August 24, 2023 Indication: Refractory atrial fibrillation with ventricular dysfunction Protocol: After informed consent and a time-out performed, the patient was sedated smoothly by Anesthesia. The patient was monitored continuously by telemetry, end-tidal CO2 pulse oximetry, and sphygmomanometry. Once asleep, the patient was given 100 joules of synchronized biphasic energy via hands-off paddles. This was not successful. The patient was then given 150 joules of synchronized biphasic energy and successfully converted to sinus bradycardia and a junctional bradycardia. Following the procedure, patient was hemodynamically stable and without complaints. There were no complications. Conclusions: 1. Successful conversion to sinus bradycardia and junctional bradycardia 2. No complications. 3. Consider hospitalization for refractory bradycardia. Coding Level of Care Code 57887 CARDIOVERSION, ELECTIVE Additional Codes Electrical Cardioversion Report ([id number])
[2023-08-24] MEDS ORDERED: ACETAMINOPHEN 500 MG TAB PO PRN (15:18)
[2023-08-24] MEDS ORDERED: POLYETHYLENE (MIRALAX) 17 GM PACK PO PRN (15:18)
[2023-08-24] MEDS ORDERED: traMADol HCL 50 MG TABLET PO PRN (15:18)
[2023-08-24] MEDS ORDERED: ASPIRIN 81 MG ECTAB PO SCH (15:18)
[2023-08-24] MEDS ORDERED: ONDANSETRON INJ 2 MG/ML 2 ML VIAL IV PRN (15:18)
[2023-08-24] MEDS ORDERED: MAGNESIUM HYDROXIDE SUSP 30 ML UDC PO PRN (15:18)
[2023-08-24] MEDS ORDERED: ALUMINUM/MAGNESIUM/SIMETH (MAALOX MAX) 30 ML UDC PO PRN (15:18)
[2023-08-24] MEDS: CHOLECALCIFEROL 1,000 UNITS 25 MCG TAB PO SCH (16:58)
[2023-08-24] MEDS: MULTIVITAMIN TAB PO SCH (16:59)
[2023-08-24] MEDS: lisinopril 40 MG TAB PO SCH (17:04)
[2023-08-24] MEDS: predniSONE 10 MG TABLET PO SCH (17:04)
[2023-08-24] MEDS: GABAPENTIN 400 MG CAP PO SCH ×2 (17:05→20:13)
[2023-08-24] MEDS: APIXABAN 5 MG TABLET PO SCH (20:13)
[2023-08-24] MEDS ORDERED: ATORVASTATIN 20 MG TAB PO SCH (21:00)
[2023-08-25 07:40] LABS: Basophils # (auto) 0.02 K/uL (0.00-0.20); Basophils % (auto) 0.3 %; Eosinophils # (auto) 0.06 K/uL (0.00-0.50); Eosinophils % (auto) 0.9 %; Hematocrit (blood only) 42.3 % (37.0-47.0); Hemoglobin 14.2 g/dl (12.0-16.0); Immature Granulocytes # (auto) 0.03 K/uL (0.01-0.20); Immature Granulocytes % (auto) 0.4 %; Lymphocytes # (auto) 1.44 K/uL (1.20-3.40); Lymphocytes % (auto) 20.8 %; Mean Corpuscular Hemoglobin 30.9 pg (25.0-34.0); Mean Corpuscular Hgb Conc 33.6 g/dL (32.0-36.0); Mean Corpuscular Volume 92.2 fL (80.0-100.0); Monocytes # (auto) 0.57 K/uL (0.11-0.59); Monocytes % (auto) 8.2 %; Neutrophils # (auto) 4.79 K/uL (1.40-6.50); Neutrophils % (auto) 69.4 %; Platelet Count 161 K/uL (130-400); RDW Coefficient of Variation 13.2 % (11.5-14.5); RDW Standard Deviation 44.8 fL (36.4-46.3); Red Blood Count 4.59 M/uL (4.20-5.40); White Blood Count 6.91 K/ul (4.8-10.8)
[2023-08-25 07:53] LABS: BUN Creatinine Ratio 21.4 (10-20); Calcium 9.7 mg/dl (8.6-10.3); Creatinine Clr Calc Pharmacy 76.8 ml/min; Est GFR (African American) 91.6 ml/min; Potassium 3.8 mmol/L (3.5-5.1)
[2023-08-25] MEDS: CHOLECALCIFEROL 1,000 UNITS 25 MCG TAB PO SCH (08:52)
[2023-08-25] MEDS: MULTIVITAMIN TAB PO SCH (08:52)
[2023-08-25] MEDS: APIXABAN 5 MG TABLET PO SCH (08:52)
[2023-08-25] MEDS: predniSONE 10 MG TABLET PO SCH (08:52)
[2023-08-25] MEDS: GABAPENTIN 400 MG CAP PO SCH ×2 (08:53→14:24)
[2023-08-25] MEDS ORDERED: OMEGA-3 (PURIFIED FISH OIL) 1 GM CAP PO SCH (09:00)
[2023-08-25] MEDS: lisinopril 40 MG TAB PO SCH (09:35)
--- NOTE | 2023-08-25 12:48 | XCELERA ---
[id number]
--- NOTE | 2023-08-25 14:25 | Electrocardiogram Report ---
Test Reason : Blood Pressure : / mmHG Vent. Rate : 086 BPM Atrial Rate : 083 BPM P-R Int : 000 ms QRS Dur : 094 ms QT Int : 374 ms P-R-T Axes : 000 -24 192 degrees QTc Int : 447 ms Atrial fibrillation with premature ventricular or aberrantly conducted complexes Left ventricular hypertrophy with repolarization abnormality Abnormal ECG When compared with ECG of 24-AUG-2023 14:19, Inverted T waves have replaced nonspecific T wave abnormality in Anterolateral leads QT has lengthened Confirmed by Gage Brown ([id number]) on 08/25/2023 2:25:10 PM Referred By: Jay Butler Confirmed By:Gage Brown
== END 2023-08-25 15:44 | disposition home or self-care (01) | DRG 309 ==
LOC: CC 06:12 → 2S 09:00

== ENCOUNTER 2023-09-12 05:20 | Observation (INO) ==
--- NOTE | 2023-08-16 11:26 | PAT Medication Instructions ---
Medication Instructions Date of Service August 16, 2023 Home Medications Medication Instructions Recorded lisinopril 40 mg tablet 40 mg PO QAM #90 tabs 02/23/23 gabapentin 400 mg capsule 400 mg PO TID #90 caps 06/08/23 apixaban 5 mg tablet (Eliquis) 5 mg PO BID #180 tabs 06/15/23 tramadol 50 mg tablet 50 - 100 mg (1 - 2 x 50 mg) PO TID 07/12/23 PRN Pain #270 tabs cholecalciferol (vitamin D3) 25 mcg (1,000 unit) capsule (Vitamin D3) 1,000 unit PO QAM multivitamin 1 tab PO QAM omega 7-hpe-xxf-fish oil 1,000 mg (120 mg-180 mg) capsule (Fish Oil) 1 cap PO QAM aspirin 81 mg tablet,delayed release 81 mg PO Q OTHER DAY polyethylene glycol 3350 17 gram/dose oral powder (Miralax) 8.5 g PO DAILY PRN lisinopril 40 mg tablet 40 mg PO QAM acetaminophen 500 mg capsule 500 mg PO Q6H PRN gabapentin 400 mg capsule 400 mg PO TID apixaban 5 mg tablet (Eliquis) 5 mg PO BID tramadol 50 mg tablet 50 - 100 mg (1 - 2 x 50 mg) PO TID PRN amiodarone 200 mg tablet 200 mg PO QAM atorvastatin 20 mg tablet (Lipitor) 20 mg PO QPM metoprolol succinate 100 mg tablet,extended release 24 hr 100 mg PO QAM prednisone 10 mg tablet 10 mg PO QAM ASK your prescriber and surgeon aspirin 81 mg tablet,delayed release 81 mg PO Q OTHER DAY apixaban 5 mg tablet (Eliquis) 5 mg PO BID(in order for spinal or epidural anesthesia, Eliquis needs to be stopped 72 hours/3 days before surgery. Please check if okay with doctor that prescribes this to you) STOP taking 2 weeks before surgery (or as soon as possible if surgery is within 2 weeks) omega 9-dlt-wqh-fish oil 1,000 mg (120 mg-180 mg) capsule (Fish Oil) 1 cap PO QAM DO NOT take the morning of surgery cholecalciferol (vitamin D3) 25 mcg (1,000 unit) capsule (Vitamin D3) 1,000 unit PO QAM multivitamin 1 tab PO QAM polyethylene glycol 3350 17 gram/dose oral powder (Miralax) 8.5 g PO DAILY PRN lisinopril 40 mg tablet 40 mg PO QAM Take morning of surgery With a small sip of water, OTHERWISE NOTHING TO EAT OR DRINK AFTER MIDNIGHT: acetaminophen 500 mg capsule 500 mg PO Q6H PRN(if needed) gabapentin 400 mg capsule 400 mg PO TID amiodarone 200 mg tablet 200 mg PO QAM tramadol 50 mg tablet 50 - 100 mg (1 - 2 x 50 mg) PO TID PRN(if needed) metoprolol succinate 100 mg tablet,extended release 24 hr 100 mg PO QAM prednisone 10 mg tablet 10 mg PO QAM Take evening before surgery acetaminophen 500 mg capsule 500 mg PO Q6H PRN(if needed) gabapentin 400 mg capsule 400 mg PO TID tramadol 50 mg tablet 50 - 100 mg (1 - 2 x 50 mg) PO TID PRN(if needed) atorvastatin 20 mg tablet (Lipitor) 20 mg PO QPM Other Notes If you have any questions please call us at [phone] or [phone] or [phone] or [phone]
--- NOTE | 2023-08-23 12:02 | Anesthesiology Consultation ---
Date of Service August 23, 2023 Assessment & Plan (1) Encounter for pre-operative examination: This anesthesia consultation is for 09/12/2023 Right Anterior Total Hip Arthroplasty - Infectious disease screening: Per assessment on 08/23/23: No known infectious disease contacts or current infectious disease symptoms. No noted recent Covid positive test result. - Outpatient joint assessment: Pt currently scheduled for inpatient pathway. If surgeon requests review for outpatient joint pathway, patient is not recommended candidate for outpatient joint program from anesthesia standpoint. - S/P Left anterior ERIKA (02/29/20): SAB at L3/4 (x3 attempts) at [facility] - OA: Chronic prednisone 10mg daily. Denies rheumatoid arthritis. States she is taking chronic prednisone for osteoarthritis. - Eliquis instructions: patient made aware that for neuraxial anesthesia, Eliquis needs to be held 72 hours prior to surgery. Per cardiology workload note (Dr. Brown) 08/23/23, "Okay to discontinue Eliquis 3 days prior to her procedure." - Cardiology visit (08/02/23): "Mrs. 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 Patient was in her usual state of health on 06/08/2023 and was being seen at her PCP's office for a routine checkup. She did not have any complaints that day but was noted to have a fast and irregular pulse on examination. EKG confirmed presence of A-Fib with RVR. She was subsequently referred to [facility] ER for further evaluation treatment. She did not had any sensation of palpitations, tachy- palpitations, decrease in exertional tolerance, unusual dyspnea on exertion or any chest discomfort. Her evaluation in the ER showed mild hyperglycemia with b lood sugar of 129 mg/dL, normal electrolytes, normal kidney function, normal TSH, normal CBC with diff, and her chest x-ray showed cardiomegaly without acute cardiopulmonary processes but she did have a suspicious ground-glass lesion in the left apex. High sensitivity troponin I was unremarkable at 12.6 pg/mL. EKG showed atrial fibrillation with RVR, no acute changes. Patient was placed on a desk monitor and was given a single dose of IV Lopressor 5 mg which did bring her heart rate down, also treated with IV Cardizem and Heparin. Hospitalist consultation was undertaken they felt that she was able to go home safely with close follow-up by Cardiology. Patient was discharged on Lopressor 25 mg b.i.d. and Eliquis 5 mg b.i.d.. When I saw her on 06/15/2023 we stopped her Lopressor in favor of Toprol-XL 100 mg daily and she was started on Eliquis 5 mg b.i.d.. At her follow-up visit on 07/06/23 after extensive discussion -- we decided to start her on Amiodarone 200 mg daily before setting up a cardioversion -- as this would give us the best odds of maintaining a sinus rhythm after cardioversion.. Patient continues to feel well with the exception of her hip pain. She remains in atrial fibrillation with a controlled ventricular response and an acceptable corrected QT interval of 390 msec -- as confirmed on today's EKG. I am hopeful that just controlling her heart rate will help her to regain her LV systolic function, and this would be more likely to happen as well if she was in a normal sinus rhythm. Recommend the followin. Continue Amiodarone 200 mg daily. 2. Continue Eliquis 5 mg b.i.d.. 3. Continue Toprol XL 100 mg daily. 4. Continue Aspirin 81 mg daily. 5. Continue Atorvastatin 20 mg daily. 6. Continue Lisinopril 40 mg daily. 7. Arrange for an elective electrical cardioversion in the near future. 8. Check preprocedural labs. ..We will most likely get a limited 2D Echo after her cardioversion and before her upcoming hip surgery on 09/12/2023 -- just to assess her LV systolic function. Patient and her agree with this plan.. Follow Up: 1 to 2 weeks after her cardioversion" - Cardioversion done 08/24/23 at [facility] for refractore atrial fibrillation with ventricular dysfunction. Per cardioversion H&P, "This morning the patient underwent an Elective Electrical Cardioversion (08/24/23) with Dr. Brown -- she was initially given 100 J of synchronized biphasic energy but remained in A-Fib, subsequent delivery of 150 J of synchronized biphasic energy successfully converted to junctional/sinus bradycardia after a prolonged conversion pause. 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 She is completely asymptomatic despite her bradycardia but as a precaution she will be admitted overnight on telemetry.. Recommend the following: -- Admit to PCU overnight on telemetry on [facility] Cardiology Service. -- Hold Amiodarone. -- Hold Metoprolol Succinate ER due to bradycardia. -- Continue Eliquis 5 mg b.i.d.. -- We would like to see her HR consistently in the 50's or 60's and it should trend up as Metoprolol has been held along with Amiodarone.. Cardiomyopathy.. 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 -- LVEF 30% to 35% on Echocardiogram 06/15/23. -- No evidence or overt signs/symptoms of heart failure at any time." - EF normalized on limited echo 08/25/23 s/p cardioversion. Optimization workload note written to cardiology- Awaiting response. Chart Review Chart Review: Patient seen in Pre Admission Testing Teaching & Discussion Pre-Anesthesia Teaching/Discussion Notes: Instructed NPO after midnight before surgery,except medications with 15 cc of water. Medication instructions provided according to the PAT guidelines. History Surgery Operation Date: 09/12/23 10:45 Proposed Procedures p Right Anterior Total Hip Arthroplasty - Won Wallace, DO Height/Weight Height: 5 ft 10 in Weight: 105.8 kg Allergies Allergy/AdvReac Type Severity Reaction Status Date / Time No Known Allergies Allergy Unverified 08/24/23 07:59 Medications Home Medications Medication Instructions Recorded Confirmed Last Taken cholecalciferol (vitamin D3) 25 1,000 unit PO QAM 05/31/18 08/24/23 02/17/21 mcg (1,000 unit) capsule (Vitamin D3) multivitamin 1 tab PO QAM 05/31/18 08/24/23 02/17/21 omega 3-lwe-rgy-fish oil 1,000 mg 1 cap PO QAM 05/31/18 08/24/23 02/17/21 (120 mg-180 mg) capsule (Fish Oil) aspirin 81 mg tablet,delayed 81 mg PO Q OTHER DAY 02/19/21 08/24/23 02/17/21 release polyethylene glycol 3350 17 8.5 g PO DAILY PRN Constipation 01/10/23 08/24/23 Unknown gram/dose oral powder (Miralax) lisinopril 40 mg tablet 40 mg PO QAM #90 tabs 02/23/23 08/24/23 Unknown acetaminophen 500 mg capsule 500 mg PO Q6H PRN Pain 06/08/23 08/24/23 Unknown gabapentin 400 mg capsule 400 mg PO TID #90 caps 06/08/23 08/24/23 Unknown apixaban 5 mg tablet (Eliquis) 5 mg PO BID #180 tabs 06/15/23 08/24/23 Unknown atorvastatin 20 mg tablet (Lipitor) 20 mg PO QPM 08/11/23 08/24/23 Unknown prednisone 10 mg tablet 10 mg PO QAM 08/11/23 08/24/23 Unknown tramadol 50 mg tablet 50 - 100 mg (1 - 2 x 50 mg) PO TID 08/23/23 08/24/23 Unknown PRN Pain #270 tabs metoprolol succinate 50 mg capsule 50 mg PO DAILY #90 ea 08/25/23 Unknown sprinkle, ext. release 24 hr Past Medical History Medical History (Updated 08/24/23 @ 09:33 by Jay Butler PA-C) Junctional bradycardia 2017 Iliac artery aneurysm Abd/Pelvis CT 04/2022: Aneurysmal dilation of the distal common left iliac artery measuring 19 mm Pulmonary nodules Atrial fibrillation, persistent Follows with Dr. 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 Chronic prednisone for her hip pain (patient states for OA) Chronic right hip pain Anaplasmosis Hx 2020, treated inpatient at [facility] Hyperglycemia "Mild, stable" Spinal stenosis Hypertension Hyperlipidemia Exercise / Class Metabolic Activity III < 4 Walking/Shop/Light housework Past Family History Family History Mother Stroke Father Cancer Other No family history of adverse response to anesthesia Denies family history of Ovarian cancer Prostate cancer Myocardial infarction Breast cancer Colorectal cancer Past Surgical History Surgical History History of cystoscopy with urethra dilation History of left hip replacement History of dilatation and curettage Removed uterine polyp History of total shoulder replacement Left anterior ERIKA (02/29/20): SAB at L3/4 (x3 attempts) at [facility] History of colonoscopy History of tooth extraction Past Anesthesia History No Hx of Anesthesia Complications and No Family Hx of Anesthesia Complications History of PONV No Hx of PONV and No Hx of Motion Sickness Social History Smoking Status: Never smoker Do You Dip or Chew Tobacco: No Hx Alcohol Use: No Hx Substance Use: No substance use type: does not use Review of Systems Patient denies chest pain, shortness of breath, fever, chills, cough, wheezing, palpitations. Physical Exam Vital Signs VITALS BP 147/84 P 75 TEMP 98.3 SP02 95%RA RESP 18 PHYSICAL Full cervical extension range of motion. Full TMJ range of motion. TMD 3.5 finger breaths Mallampati Score 3 Dentition: missing molars, + crowns Lungs: clear throughout to auscultation Cardiac: regular rate, irregularly irregular rhythm, no murmurs noted Spine: normal Carotid arteries: negative bruit Extremities: no LE edema Thick neck Lab Results Anesthesia Preop Results Results Anesthesia Widget: WBC 6.91 K/ul (4.8-10.8) 08/25/23 Hgb 14.2 g/dl (12.0-16.0) 08/25/23 Hct 42.3 % (37.0-47.0) 08/25/23 Plt 161 K/uL (130-400) 08/25/23 Na 140 mmol/L (136-145) 08/25/23 K 3.8 mmol/L (3.5-5.1) 08/25/23 Cl 104 mmol/L (98-107) 08/25/23 CO2 31 mmol/L (21-32) 08/25/23 BUN 15 mg/dl (6-23) 08/25/23 Creat 0.70 mg/dl (0.6-1.2) 08/25/23 Glucose Level 101 mg/dl (70-99(Fasting)) H 08/25/23 PT 11.8 Seconds (9.0-12.0) 08/23/23 PTT 29 Seconds (21-31) 08/23/23 INR 1.1 (0.9-1.1) 08/23/23 Blood Type A Positive 08/23/23 Antibody Screen NEGATIVE 08/23/23 Testing Electrocardiogram Date: 08/02/23 Atrial fibrillation at 81 bpm. LAD. Moderate voltage criteria for LVH, may be normal variant (R in aVL, Todd product). Nonspecific T wave abnormality. Chest X-Ray Date: 06/08/23 FINDINGS: An AP, portable, upright chest radiograph is compared to study dated 05/07/2022 and correlated with chest CT dated 05-12. The heart is enlarged noting atherosclerotic calcification of the thoracic aorta. The pulmonary vasculature is noncongested. Chronic interstitial thickening is similar to previous. There is bibasilar scarring/atelectasis. No airspace consolidation or large pleural effusion is identified. No pneumothorax is seen. The bony thorax is grossly intact. A left shoulder arthroplasty is in place. Arthritic changes seen in the right shoulder. IMPRESSION: Cardiomegaly with no acute cardiopulmonary abnormality identified. The highly suspicious groundglass lesion at the left apex seen on a prior chest cannot be evaluated by x-ray. Echocardiogram Date: 06/15/23 Date: 06/15/23 EF 30-35%. Moderate global hypokinesis of the left ventricle. No thrombus. Mild LVDD. Mild concentric LVH. Moderate left and mild right atrial dilatation. Mild AR. Moderate MR. Trace to mild TR. Date: 08/25/23 (limited echo post-cardioversion) EF 55-60%. Borderline cLVH. No RWMA. No significant valvular disease.
[2023-09-12] MEDS ORDERED: GABAPENTIN 300 MG CAP PO SCH (06:00)
[2023-09-12] MEDS ORDERED: TRANEXAMIC ACID 1,000 MG **IV Pre-op IV SCH (06:00)
[2023-09-12] MEDS ORDERED: dexAMETHasone**PF** 10 MG/ML VIAL IV SCH (06:00)
[2023-09-12] MEDS ORDERED: LR 60ML/HR IV SCH (06:00)
[2023-09-12] MEDS ORDERED: ceFAZolin 2000MG 2,000 MG/15 ML SYR IV SCH (06:00)
[2023-09-12] MEDS ORDERED: TRANEXAMIC ACID 1,000 MG **IV Intra-op IV SCH (06:00)
[2023-09-12] MEDS ORDERED: FAMOTIDINE 20 MG TAB PO SCH (06:00)
[2023-09-12] MEDS ORDERED: ROPIV 0.5% 246mg, Ketorolac 30mg, EPINEPHrine 0.5mg in NSS INFIL SCH (06:00)
[2023-09-12] MEDS ORDERED: ACETAMINOPHEN 500 MG TAB PO SCH (06:00)
[2023-09-12] MEDS ORDERED: LR 500ML BOLUS, THEN 15ML/HR IV SCH (06:00)
[2023-09-12] MEDS ORDERED: ROPIVACAINE 0.5% 5 MG/ML 30 ML VIAL ONE (06:11)
[2023-09-12] MEDS ORDERED: LIDOCAINE 2% 2 ML VIAL/AMP(20MG/ML) INFIL ONE (06:34)
[2023-09-12] MEDS ORDERED: fentaNYL citrate PF 100 MCG/2 ML VIAL ONE (06:34)
[2023-09-12] MEDS ORDERED: MIDAZOLAM HCL 1 MG/ML 2ML VIAL ONE (06:34)
[2023-09-12] MEDS ORDERED: PROPOFOL IV EMULSION 10 MG/ML 20 ML VIAL IV ONE ×2 (06:34→08:04)
--- NOTE | 2023-09-12 06:36 | History & Physical Bridge Note ---
Date of Service September 12, 2023 History & Physical Bridge Note I have examined the patient, reviewed the History & Physical and in the interval since the performance of the History & Physical I have noted the following changes of clinical significance: no changes noted
[2023-09-12] MEDS ORDERED: ATROPINE SULFATE 0.1 MG/ML 10ML SYR IV PRN (06:38)
[2023-09-12] MEDS ORDERED: ONDANSETRON INJ 2 MG/ML 2 ML VIAL IV PRN ×2 (06:38→09:27)
[2023-09-12] MEDS ORDERED: HYDROmorphone INJ 1 MG/ML SYRINGE IV PRN (06:38)
[2023-09-12] MEDS ORDERED: KETOROLAC 30 MG/ML VIAL IV PRN (06:38)
[2023-09-12] MEDS ORDERED: ePHEDrine sulfate 50 MG/ML AMP IV PRN (06:38)
[2023-09-12] MEDS ORDERED: ORTHO JOINT ANESTHETIC ONE (06:44)
--- NOTE | 2023-09-12 07:59 | Operative Report ---
PG Post Operative Report Pre & Post Diagnosis Operation Date: 09/12/23 07:00 Pre-Op Diagnosis: degenerative joint disease of right hip Post-Op Diagnosis: degenerative joint disease of right hip I identified the patient and participated in the time-out.: Yes Procedure Operation Date: 09/12/23 07:00 Actual Procedures p Right Anterior Total Hip Arthroplasty(Right) - Won Wallace DO Surgeon Won Wallace DO Cogeneration Operator Won Fitzgerald PA-C Estimated Blood Loss 150 Findings Consistent with Post-Op Diagnosis Specimens Right femoral head Description of Procedure Implants used I used a ZimmerBiomet total hip arthroplasty system with a size 5 high offset Avenir Complete stem, a 52 mm G7 cup with a 25mm screw, an E1 polyethylene liner, a 36 mm ceramic head with a 0 neck. Shreya arrived at the hospital for the above procedure. She was seen in the preoperative holding area and the operative extremity was identified and signed. She was given a spinal anesthetic, a preoperative antibiotic, and TXA. She was then taken back to the operating room and laid on the table in the supine position. She was given basic sedation. The operative leg was secured to a Puristst leg positioner. The hip was then prepped and draped in sterile fashion. A timeout was done and the patient and the operative extremity was properly identified. An anterior approach was used. Dissection was taken down through the fascia and the tensor muscle belly was retracted laterally and the rectus was retracted medially. The circumflex vessels were identified and ligated. The capsule was then incised and tagged for later repair. The femoral neck was then cut and the femoral head was removed. The acetabulum was exposed. Time was spent doing a complete circumferential labral release. Sequential reaming of the acetabulum up to a size 51 reamer was done. Final reamings were done under fluoroscopy to ensure appropriate version. A Biomet 52 mm G7 cup was then impacted into place. A single 25 mm screw was placed. The E1 polyethylene liner was then snapped into place. Surrounding soft tissues were then injected with 100 cc of an orthopedic pain control cocktail. The proximal femur was then exposed. Sequential broaching up to a size 5 broach was done. Off that broach a size 36 head with a 0 neck was trialed. The hip was reduced and fluoroscopic images showed anatomic alignment of the implants in acceptable length. The broach was removed. The final size 5 high offset Avenir Complete stem was then impacted into place. A ceramic 36 mm head with a 0 neck was then impacted onto the stem and the hip was reduced. Final fluoroscopic images showed anatomic alignment of the hip. The capsule was then closed with #1 Vicryl suture. A dilute betadyne lavage was then done for 3 minutes. The joint was then irrigated with normal saline solution. The fascia was closed with #1 PDS suture. Skin was closed with 2-0 Vicryl, dustin, and a Silverlon dressing. She was then transferred to a hospital bed and taken to the post anesthesia care unit in stable condition. She tolerated the procedure well. Won Fitzgerald PA-C, was present for the entire procedure. He was critical for patient positioning, prepping, draping, retraction exposure, wound closure and application of sterile dressing. I attest to the content of the Intraoperative Record and any orders documented therein. Any exceptions are noted below.
--- NOTE | 2023-09-12 08:19 | Fluoroscopy Report ---
FL hip RT 1V CLINICAL HISTORY: RIGHT ANTERIOR HIP COMPARISON STUDY: Right hip radiographs August 23, 2023. FLUOROSCOPY TIME: 14 seconds. Ka, r: 1.4795 mGy FLUOROSCOPIC IMAGES: 1 FINDINGS: Fluoroscopy was provided during total right hip arthroplasty. Hardware is intact. No unexpe cted radiopaque foreign bodies. IMPRESSION: Fluoroscopy provided during total right hip arthroplasty. ACT 112: Negative or not required by law. Electronically signed by: Yo Adams M.D. 09/12/2023 8:18 AM
[2023-09-12] MEDS ORDERED: MAGNESIUM HYDROXIDE SUSP 30 ML UDC PO PRN (09:27)
[2023-09-12] MEDS ORDERED: oxyCODONE HCL IR 5 MG TAB (IMMEDIATE RELEASE) PO PRN (09:27)
[2023-09-12] MEDS ORDERED: bisacodyL 10 MG SUPP PR PRN (09:27)
[2023-09-12] MEDS ORDERED: METOCLOPRAMIDE HCL INJ 5 MG/ML 2 ML VIAL IV PRN (09:27)
[2023-09-12] MEDS ORDERED: NALOXONE HCL 0.4 MG/1 ML VIAL/CARP IV PRN (09:27)
[2023-09-12] MEDS ORDERED: HYDROmorphone INJ 0.5 MG/0.5 ML SYR IV PRN (09:27)
--- NOTE | 2023-09-12 09:42 | XRay Report ---
XR hip 1V RT w pelvis HISTORY: 83 years-old Female IN PACU - Post Surgical right hip arthroplasty COMPARISON: February 11, 2024 TECHNIQUE: AP view of the pelvis with crosstable lateral view of the right hip FINDINGS: Unremarkable left hip arthroplasty. Right hip arthroplasty demonstrates satisfactory alignment. Later al skin dustin with expected postoperative soft tissue swelling and deep tissue air. IMPRESSION: Right hip arthroplasty with expected postoperative changes. ACT 112: Negative or not required by law. The above report was generated using voice recognition software. It may contain grammatical, syntax o r spelling errors. Electronically signed by: Dante Cueva M.D. 09/12/2023 9:40 AM
[2023-09-12] MEDS: SODIUM CHLORIDE 0.9% 1,000 ML IV SCH ×2 (10:17→21:07)
[2023-09-12] MEDS: GABAPENTIN 400 MG CAP PO SCH ×3 (10:38→20:01)
[2023-09-12] MEDS: DOCUSATE SODIUM 100 MG CAP PO SCH ×2 (10:39→20:01)
[2023-09-12] MEDS: predniSONE 10 MG TABLET PO SCH (10:39)
[2023-09-12] MEDS: METOPROLOL SUCC 50MG EXT REL TAB PO SCH (10:39)
[2023-09-12] MEDS: MULTIVITAMIN TAB PO SCH (10:39)
[2023-09-12] MEDS: lisinopril 40 MG TAB PO SCH (10:39)
--- NOTE | 2023-09-12 11:20 | Anesthesiology Progress Note ---
Date of Service September 12, 2023 Anesthesia Post Procedure Vital Signs Vital Signs: Temp Pulse Pulse Resp BP Pulse Ox O2 Del Method 09/12/23 10:21 108 H 16 150/99 H 94 Room Air 09/12/23 09:53 36.8 C 104 H 18 151/94 H 95 Room Air 09/12/23 09:25 36.6 C 110 H 18 157/106 H 96 Room Air 09/12/23 09:10 100 H 16 127/96 96 Room Air 09/12/23 09:00 36.4 C L 103 H 14 140/94 96 Oxymask 09/12/23 08:50 104 H 12 114/89 96 Oxymask 09/12/23 08:40 98 H 16 126/75 96 Oxymask 09/12/23 08:30 105 H 18 124/83 95 Oxymask 09/12/23 08:21 36.4 C L 98 H 16 99/77 L 92 Oxymask 09/12/23 05:47 36.8 C 95 H 20 159/100 H 99 Room Air O2 Flow Rate 09/12/23 10:21 09/12/23 09:53 09/12/23 09:25 09/12/23 09:10 09/12/23 09:00 4 09/12/23 08:50 4 09/12/23 08:40 4 09/12/23 08:30 6 09/12/23 08:21 6 09/12/23 05:47 Pain Intensity Right Hip: Pain Intensity: 8 Transfer of Care Handoff Completed per policy Notes Mental Status: alert / awake / arousable Patient Amnestic to Procedure: Yes Nausea / Vomiting: adequately controlled Pain: adequately controlled Airway Patency, RR, SpO2: stable & adequate BP & HR: stable & adequate Hydration State: stable & adequate Neuraxial Anesthesia: was administered and sensory block is resolving Anesthetic Complications: no major complications apparent
[2023-09-12] MEDS: ceFAZolin 2000MG 2,000 MG/15 ML SYR IV SCH ×2 (14:40→23:04)
[2023-09-12] MEDS: ACETAMINOPHEN 500 MG TAB PO SCH ×2 (14:40→23:02)
[2023-09-12] MEDS: traMADol HCL 50 MG TABLET PO PRN (18:09)
[2023-09-12] MEDS ORDERED: SENNA 8.6 MG TAB PO SCH (21:00)
[2023-09-12] MEDS ORDERED: ATORVASTATIN 20 MG TAB PO SCH (21:00)
[2023-09-13] MEDS: ACETAMINOPHEN 500 MG TAB PO SCH ×2 (05:39→08:22)
[2023-09-13] MEDS: traMADol HCL 50 MG TABLET PO PRN (08:22)
[2023-09-13] MEDS: DOCUSATE SODIUM 100 MG CAP PO SCH (08:54)
[2023-09-13] MEDS: lisinopril 40 MG TAB PO SCH (08:55)
[2023-09-13] MEDS: predniSONE 10 MG TABLET PO SCH (08:55)
[2023-09-13] MEDS: METOPROLOL SUCC 50MG EXT REL TAB PO SCH (08:55)
[2023-09-13] MEDS: MULTIVITAMIN TAB PO SCH (08:55)
[2023-09-13] MEDS: GABAPENTIN 400 MG CAP PO SCH (08:55)
[2023-09-13] MEDS: APIXABAN 5 MG TABLET PO SCH ×2 (08:55→08:57)
--- NOTE | 2023-09-13 10:23 | Orthopedic Progress Note ---
Date of Service September 13, 2023 Assessment & Plan (1) Status post right hip replacement: Overall she is doing quite well today with good pain control to the right hip. She will be seen by physical therapy later this morning to work on ambulation and range of motion exercises. She was restarted back on her Eliquis for DVT prophylaxis. She can be discharged home later this morning pending physical therapy evaluation. She will follow-up with orthopedics in 2 weeks for postoperative care. Subjective . Shreya was seen and evaluated this morning resting comfortably in no apparent distress. She notes that her pain is well-controlled to the right hip. She has been up and out of bed without any significant issues. She has yet to be seen by physical therapy this morning. She denies any other concerns today. Review of Systems All systems reviewed & are unremarkable except as noted in HPI & below. Physical Exam . On physical examination of the right hip, her dressings are clean, dry, and intact. The right leg is out in full extension. She has active plantarflexion dorsiflexion to the right ankle. +2 DP and PT pulses. Less than 2-second capillary refill. Normal sensation. Neurovascular intact. Results & Data Results & Data Laboratory Results . Diagnostic Findings . Postoperative x-rays of the right hip show prosthesis to be in anatomical alignment with no signs of fracture complication or loosening. PG Care Time/CCT Total # of Minutes Spent Total Time Spent with Patient: Total time spent is greater than 50% in coordination of care (as documented) at patient's floor/unit and/or counseling patient: Coding Level of Care Code 06387 Post Operative Follow-Up Diagnoses Status post right hip replacement Z96.641
--- NOTE | 2023-09-13 10:25 | Discharge Summary ---
Date of Service September 13, 2023 Principal Diagnosis Same as "Discharge Diagnosis" noted below under Discharge Instructions. Discharge Exam . On physical examination of the right hip, her dressings are clean, dry, and intact. The right leg is out in full extension. She has active plantarflexion dorsiflexion to the right ankle. +2 DP and PT pulses. Less than 2-second capillary refill. Normal sensation. Neurovascular intact. Discharge Data Procedures Performed Operation Date: 09/12/23 07:00 Actual Procedures p Right Anterior Total Hip Arthroplasty(Right) - Won Wallace DO Ordered Studies 09/12/23 07:00 FL hip RT 1V Routine Hospital Course (1) Status post right hip replacement: On September 12, 2023 Shreya arrived at [facility] and underwent a right anterior total hip arthroplasty with Dr. Wallace with no complications. She had a MAC epidural anesthetic. Postoperatively, she was transferred to the PACU for immediate postoperative care and then transferred to the general orthopedic floor in stable condition. Her hospital course was uneventful. On postoperative day #1, her vital signs were stable and her pain was well- controlled. She was restarted on her Eliquis for DVT prophylaxis. She participated well with physical therapy working on ambulation and range of motion exercises. She was then discharged home in stable condition. She will follow-up with orthopedics in 2 weeks for postoperative care. PG Care Time/CCT Total # of Minutes Spent Total Time Spent with Patient: Total time spent is greater than 50% in coordination of care (as documented) at patient's floor/unit and/or counseling patient: Discharge Plan Discharge Items Patient Disposition: Home - Home Health Services Reason For Visit: DJD Hip Right Discharge Diagnosis: Same Activity: Per Instructions section Non-emergency contact: Surgeon Call non-emergency contact if: your temperature is above 101.5, your wound has increased redness and your wound has increased drainage Follow-up/Referrals: Alyson Kingsley MD [Primary Care Provider] - Diet: Regular Addtl Attending Provider Instructions: Activity and Therapy Recommendations: * If you are using [facility] then therapy will be provided at your home until they feel you have accomplished all of your goals. * If you are using [facility] then Physical Therapy will be provided until they feel you are ready to start Outpatient Physical Therapy. * If you are not using home therapy then Outpatient Physical Therapy should start about 3-5 days from your day of surgery. Therapy will last about 6-10 weeks * You were shown a series of exercises in the hospital. Do these exercises three times each day including the exercises you were shown in physical therapy. * Get up and walk several times each day.~ For the first four weeks, try not to stand or walk for more than one hour at a time. If you do stand or walk for more than one hour, you will not hurt anything, but your leg will likely swell.~~ * As you feel comfortable, you may change from the walker or crutches to a cane and~then to independent walking. Medications: * Narcotic You will likely be sent home from the hospital with a prescription for the narcotic pain medication that worked best throughout your stay. * Cefadroxil -take the antibiotic twice a day for 10 days to help prevent infection. * Eliquis - continue taking your Eliquis as prescribed. * Other medications may be prescribed for specific circumstances. If you have any questions, please call the office at . * Resume previous home medications unless otherwise instructed TEDs/Elastic Stockings: The white elastic stockings help limit swelling and prevent blood clots from forming in your legs. The more you wear them, the more they work. Wear them for six weeks. Dressing Care: Leave the Silverlon dressing in place for 7 days. After 7 days you may remove the dressing. If the incision is not draining then you may leave the dustin open to air. If there is a little bit of drainage or if the dustin are getting stuck on your clothing then cover the incision with a dry dressing. The dustin will be removed at your 2 week follow-up appointment. Showering: You may shower with the Silverlon dressing in place. Do not let the shower spray hit the dressing directly. Pat the Silverlon dressing dry. If the dressing becomes wet underneath, then simply remove the dressing. Keep the incision dry until you are 7 days out from the day of surgery. After 7 days you may remove the Silverlon dressing and shower with the dustin exposed. Let soapy water run over the dustin and pat them dry. Do not scrub or soak the incision. Things To Watch For: * Drainage from the incision site that occurs more than one week after your surgery. * Increased redness at the incision site. * Fever above 102 degrees Fahrenheit. * Unusual chest pain or shortness of breath. * Call [facility] at with any of the above problems Follow-Up Visit: Follow-up with Dr. Wallace's PA (Won Fitzgerald) 2-3 weeks after your day of surgery. He will remove your dustin and answer any questions. If you have any additional questions or concerns, Dr Wallace is usually in the office at the same time and will be available An appointment was probably scheduled when you signed-up for surgery in the office. If you have any questions call Office Instructions: More detailed instructions as well as Frequently Asked Questions were provided in a folder by our office when you signed-up for surgery. Please review these instructions when you get home. If you have any further questions or concerns, please feel free to call the office at [phone] Pending Studies at Discharge: No Stand-Alone Forms: My [facility], Smoking Cessation Medications and DC Order Prescriptions: New oxycodone 5 mg Tablet 5 mg PO Q6 PRN (Reason: pain) Qty: 30 0RF cefadroxil 500 mg capsule 500 mg PO BID 10 Days Qty: 20 0RF Continued lisinopril 40 mg tablet 40 mg PO QAM Qty: 90 3RF tramadol 50 mg tablet 50 - 100 mg PO TID PRN (Reason: Pain) Qty: 270 0RF Rx Instructions: PDMP searched, okay to fill metoprolol succinate 50 mg tablet extended release 24 hr 50 mg PO DAILY Qty: 90 3RF polyethylene glycol 3350 [Miralax] 17 gram/dose powder 8.5 g PO DAILY PRN (Reason: Constipation) acetaminophen 500 mg capsule 500 mg PO Q6H PRN (Reason: Pain) gabapentin 400 mg capsule 400 mg PO TID Qty: 90 5RF Eliquis 5 mg tablet 5 mg PO BID Qty: 180 3RF multivitamin Tablet 1 tab PO QAM cholecalciferol (vitamin D3) [Vitamin D3] 1,000 unit Capsule 1,000 unit PO QAM omega 3-elw-qok-fish oil [Fish Oil] 1,000 mg (120 mg-180 mg) Capsule 1 cap PO QAM atorvastatin [Lipitor] 20 mg tablet 20 mg PO QPM prednisone 10 mg tablet 10 mg PO QAM aspirin 81 mg Tablet,Delayed Release (Dr/Ec) 81 mg PO Q OTHER DAY Admission Data Admit Date/Time: 09/12/23 08:23 Attending Provider: Won Wallace Admit Provider: Won Wallace Primary Care Provider: Alyson Kingsley Other Interventions: Discharge Summary Assessment (RN) Last Done: 09/13/23 09:15
== END 2023-09-13 11:19 | disposition home health service (06) ==
LOC: ASU 05:20 → 3E 05:20